=== PATIENT | female | born 1990 | race Caucasian/White ===

== ENCOUNTER 2020-07-28 09:10 | Emergency (ER) | payer OTHER, SELFPAY ==
--- NOTE | ~2020-07-28 | CT_ITS ---
EXAMINATION: CT abdomen pelvis w con EXAM DATE: 07/28/2020 11:04 INDICATION: Middle abd pain x 2 days, N/V/D . TECHNIQUE: Spiral CT of the abdomen and pelvis was performed following intravenous injection of 100 m L Omnipaque 350. Axial, coronal and sagittal images of the abdomen and pelvis were reviewed. The do se-length product (DLP) for this examination was 326.96 mGy-cm. The exposure was tailored according to patient size (auto mA exposure control), and iterative reconstruction (ASIR) was used as additiona l dose reduction technique. There is no prior study for comparison. FINDINGS: There is small region of heterogeneous right renal cortical enhancement at the midpole ant eriorly, could be pyelonephritis, please correlate with urinalysis. Can't exclude underlying renal ce ll cancer particularly if patient does not have pyelonephritis clinically. No hydronephrosis. The li zia, spleen, adrenal glands and pancreas are unremarkable. Gallbladder is unremarkable. No biliary obstruction. The uterus is unremarkable. Small amount of physiologic free pelvic fluid. The bladder is unremarkable. There is no retroperitoneal or pelvic lymphadenopathy. There are no findings to suggest appendicitis. The stomach and small bowel are unremarkable. There is moderate amount of colonic stool. No free intraperitoneal gas. The heart is normal in size. T here are no pericardial or pleural effusions. The lung bases are unremarkable. There are no osteobl astic or osteolytic lesions identified. IMPRESSION: Small region heterogeneous right renal cortical enhancement suspicious for acute pyelonep hritis. Correlate with urinalysis. If patient does not have pyelonephritis clinically, follow-up none mergent MRI should be obtained to exclude less likely possibility of cancer. Reviewed, dictated and finalized at location D. IMPRESSION: Small region heterogeneous right renal cortical enhancement suspici ous for acute pyelonephritis. Correlate with urinalysis. If patient does not barnett ve pyelonephritis clinically, follow-up nonemergent MRI should be obtained to e xclude less likely possibility of cancer.
[2020-07-28 09:20] VITALS: BP 122/85; PULSE 75; RESP 16; TEMP 36.9; O2SAT 99
[2020-07-28] MEDS: PANTOPRAZOLE SODIUM IV 40 MG VIAL IV PUSH (10:03)
[2020-07-28] MEDS: ONDANSETRON INJ 4 MG/2 ML VIAL IV PUSH (10:03)
[2020-07-28 10:05] LABS: Basophils Percent Auto 0.5 % (0.2-1.2); Eosinophils Absolute Auto 0.1 K/mm3 (0-0.3); Eosinophils Percent Auto 1.3 % (0-4.4); Hematocrit 39.1 % (37.0-47.0); Hemoglobin 13.2 g/dL (12.0-15.0); Immature Granulocyte Absolute 0.03 K/mm3 (0.00-0.031); Immature Granulocyte Percent A 0.5 % (0-0.5); Lymphocytes Absolute Auto 1.22 K/mm3 (0.9-3.2); Lymphocytes Percent Auto 19.3 % (18.3-44.2); Mean Corpuscular HGB Conc 33.8 g/dl (32-36); Mean Corpuscular Hemoglobin 31.4 pg (26-34); Mean Corpuscular Volume 92.9 fl (80-100); Monocytes Absolute Auto 0.6 K/mm3 (0.1-0.6); Neutrophils Absolute Auto 4.3 K/mm3 (1.3-6.7); Neutrophils Percent Auto 68.4 % (45.5-73.1); Platelet Count Result 233 k/mm3 (150-375); Red Blood Count 4.21 M/mm3 (4.2-5.4); Red Cell Distribution Width 12.2 % (11.5-14.5); White Blood Count 6.3 K/mm3 (4.5-10.0)
[2020-07-28] MEDS: SODIUM CHLORIDE 0.9% IV 1,000 ML 999 ML IV CONT (10:05)
[2020-07-28 10:11] LABS: Add Urine Microscopic? YES; Amorphous Sediment Urine Few; Appearance Urine Cloudy (Clear); Bacteria Urine Trace /hpf; Bilirubin Urine Negative (Negative); Blood Urine Negative (Negative); Color Urine Yellow (Yellow); Glucose Urine UA Negative (Negative); Ketones Urine Negative (Negative); Leukocyte Esterase Ur Negative LEU/UL (Negative); Mucus Urine Rare /lpf; Nitrate Urine Negative (Negative); Protein Urine 1+ mg/dL (Negative); RBC Urine 0-2 /hpf (0-2); Specific Grav Ur 1.016 (1.001-1.035); Squamous Epithelial Cell Urine Moderate /hpf (Few); Urobilinogen Urine Negative mg/dL (<2.0); WBC Urine 0-3 /hpf
--- NOTE | 2020-07-28 10:17 | ED.ABDPAIN ---
HPI - Abdominal Pain General Chief Complaint: Abdominal Pain Stated Complaint: abd pain Time Seen by Provider: 07/28/20 09:13 Source: patient, family and RN notes reviewed Mode of arrival: ambulatory Limitations: no limitations History of Present Illness HPI narrative: Patient is a 30-year-old female who presents to emergency department for evaluation of abdominal pain that began over the weekend had diffuse loose stools on Monday and then Monday began to have emesis that lasted throughout the day and has since had a sharp pain in the periumbilical region radiating to the right lower quadrant which has persisted patient. Patient denies similar occurrence in the past has tried [id number] medications with minimal improvement pain worsens with activity and movement. Patient has not eaten this morning Related Data Home Medications Medication Instructions Recorded Confirmed bupropion HCl [Wellbutrin XL] 300 mg PO QAM 07/28/20 fluoxetine 20 mg PO DAILY 07/28/20 Allergies Allergy/AdvReac Type Severity Reaction Status Date / Time No Known Allergies Allergy Verified 07/28/20 10:02 Review of Systems Review of Systems: All systems reviewed & are unremarkable except as noted in HPI and below PMFSH Past Medical History Medical History (Updated 07/28/20 @ 11:40 by Hayden Muñoz PA-C) Anxiety Social History Social History (Updated 07/28/20 @ 10:19 by Hayden Muñoz PA-C) Smoking status: Never smoker Exam Narrative: Exam Narrative: GENERAL: Well-appearing, well-nourished, and in no acute distress. HEAD: Normocephalic, atraumatic. EYES: PERRLA and EOMI. ENT: Nares clear, no rhinorrhea or epistaxis. Mucous membranes moist. NECK: Supple. No adenopathy or masses. CHEST: Clear to auscultation. No respiratory distress. No wheezes rales or rhonchi HEART: Regular rate and rhythm. No murmur heard. Normal peripheral pulses. ABDOMEN: Soft, periumbilical and focal right lower quadrant tenderness to palpation with voluntary guarding, nondistended EXTREMITIES: Normal range of motion. No edema. SKIN: Warm, dry, no rash. NEURO: No focal deficits. Alert and oriented x3. Cranial nerves II through XII grossly intact PSYCH: Normal mood and affect. Course Course Emergency Course: Patient in the room no distress aware of case findings treatment plan and diagnosis agreeing to follow-up as instructed or to return if symptoms worsen or concerns. Patient was made aware of her imaging findings and will follow with primary care for further evaluation. Patient is afebrile nontoxic-appearing. Patient will follow with primary care as noted has been provided with reasons to return and had improvement with medications Vital Signs Vital signs: Vital Signs Temperature 98.4 F 07/28/20 09:20 Pulse Rate 75 07/28/20 09:20 Respiratory Rate 16 07/28/20 09:20 Blood Pressure 122/85 07/28/20 09:20 Pulse Oximetry 99 07/28/20 09:20 Temperature 98.4 F 07/28/20 09:20 Pulse Rate 75 07/28/20 09:20 Respiratory Rate 16 07/28/20 09:20 Blood Pressure 122/85 07/28/20 09:20 Pulse Oximetry 99 07/28/20 09:20 MDM - Abdominal Pain MDM Narrative Medical decision making narrative: Patient was evaluated for vomiting and right lower quadrant pain. Patient had improvement with medications. ABCs and vital signs intact and stable. Patient will be discharged home with outpatient follow-up Differential Diagnosis Differential diagnosis: Likely abdominal pain, acute appendicitis, calculus of kidney, constipation, diverticulitis, endometriosis, gastroenteritis, pancreatitis and small bowel obstruction Lab Data Result diagrams: 07/28/20 09:45 07/28/20 09:45 Labs: Lab Results 07/28/20 07/28/20 07/28/20 Range/Units 09:45 09:45 09:45 WBC 6.3 (4.5-10.0) K/mm3 RBC 4.21 (4.2-5.4) M/mm3 Hgb 13.2 (12.0-15.0) g/dL Hct 39.1 (37.0-47.0) % MCV 92.9 (80-100) fl MCH 3
[2020-07-28 10:49] LABS: Alanine Aminotransferase 20 U/L (4-35); Albumin Level 4.2 g/dL (3.5-5.1); Alkaline Phosphatase 47 U/L (38-126); Anion Gap 8 mmol/L (8-16); Aspartate Amino Transferase 30 U/L (14-36); Bilirubin,Total 0.3 mg/dL (0.2-1.3); Blood Urea Nitrogen 12 mg/dL (7-17); Calcium 9.6 mg/dL (8.4-10.2); Carbon Dioxide 29 mmol/L (22-30); Chloride 101 mmol/L (98-107); Estimated CRCL calculation 87 ml/min; Estimated Glomerular Filt Rate > 60; Glucose 107 mg/dL (65-105); Lipase 92 U/L (23-300); Potassium 4.1 mmol/L (3.4-5.0); Sodium 138 mmol/L (137-145)
[2020-07-28] MEDS: HYOSCYAMINE SULFATE 0.5 MG/ML AMPUL 0.25 MG IM (12:16)
== END 2020-07-28 12:22 | disposition home or self-care (01) ==
PROVIDERS: Emergency Medicine Emergency Medical Services; Emergency Provider Emergency Medicine; PCP Nurse Practitioner Family
DX: R10.84 Generalized abdominal pain (principal); F41.9 Anxiety disorder, unspecified
CPT/HCPCS: 36415; 74177; 80053; 81001; 81025; 83690; 85025; 96361; 96372; 96374; 96375; 99284; C9113; J0131; J1980; J2405; J7030; Q9967

== ENCOUNTER 2021-04-02 17:30 | Outpatient (CLI) | payer OTHER, SELFPAY ==
[2021-04-05 20:04] LABS: Tissue Transglutaminase IgA Ab <1.0 U/mL (<15.0)
[2021-04-06 10:43] LABS: Tissue Transglutaminase IgG Ab <1.0 U/mL (<15.0)
== END 2021-04-02 17:31 | disposition home or self-care (01) ==
LOC: ANHLAB 17:33
PROVIDERS: PCP Nurse Practitioner Family; Visit Provider Nurse Practitioner Family
DX: R14.0 Abdominal distension (gaseous) (principal)
CPT/HCPCS: 36415; 83516

== ENCOUNTER 2021-04-02 17:49 | Outpatient (CLI) | payer OTHER, SELFPAY ==
--- NOTE | ~2021-04-02 | XR_ITS ---
EXAMINATION: XR wrist RT 2V EXAM DATE: 04/02/2021 18:42 INDICATION: Joint Pain, Right Wrist Is Worse Than Left. TECHNIQUE: Frontal and lateral projections of the right wrist. There are no prior studies for compar jose. FINDINGS: There are no bony erosions identified. There are no acute fractures or dislocations identi fied. There is no subcutaneous gas. The soft tissue is unremarkable. There are no radiopaque fore ign bodies. IMPRESSION: 1. Unremarkable XR wrist RT 2V exam. Reviewed, dictated and finalized at location G. ORATE PARALEGAL
--- NOTE | ~2021-04-02 | XR_ITS ---
EXAMINATION: XR ankle LT 2V EXAM DATE: 04/02/2021 18:43 INDICATION: Multiple Joint Pain/inflammation X Few Years TECHNIQUE: Frontal and lateral projections of the left ankle There is no prior study for compariso n. FINDINGS: The ankle mortise appears intact. No talar osteochondral defect. There are no acute left a nkle fractures or dislocations identified. There is no subcutaneous gas. The soft tissue is unremar kable. There are no radiopaque foreign bodies. IMPRESSION: 1. Unremarkable XR ankle LT 2V exam. Reviewed, dictated and finalized at location G. INOMETER TESTER
--- NOTE | ~2021-04-02 | XR_ITS ---
EXAMINATION: XR sacroiliac joints min 3V EXAM DATE: 04/02/2021 18:45 INDICATION: Multiple Joint Pain/inflammation X Few Years TECHNIQUE: Sacroiliac joint frontal, bilateral oblique projections. There is no prior study for com naye. FINDINGS: Sacroiliac joints are symmetric without erosive change, ankylosis or sclerosis. Sacrum, sa croiliac joints, sacral arcuate lines are intact. The soft tissue is unremarkable. IMPRESSION: Unremarkable XR sacroiliac joints exam. Reviewed, dictated and finalized at location G. UTING ARCHITECT
--- NOTE | ~2021-04-02 | XR_ITS ---
EXAMINATION: XR foot RT 2V EXAM DATE: 04/02/2021 18:46 INDICATION: Multiple Joint Pain/inflammation X Few Years . TECHNIQUE: Frontal and lateral projections of the right foot. Correlation is made to contralateral f oot same date. FINDINGS: There are no prior studies for comparison. There are no acute fractures or dislocations i dentified. There is no subcutaneous gas. The soft tissue is unremarkable. There are no radiopaque foreign bodies. There are no bony erosions identified. IMPRESSION: 1. Unremarkable XR foot RT 2V exam. Reviewed, dictated and finalized at location G. CTOR OF DIETARY
--- NOTE | ~2021-04-02 | XR_ITS ---
EXAMINATION: XR wrist LT 2V EXAM DATE: 04/02/2021 18:42 INDICATION: Multiple Joint Pain/inflammation. TECHNIQUE: Frontal and lateral projections of the left wrist. Correlation is made to contralateral w rist same date. FINDINGS: There are no bony erosions identified. There are no acute fractures or dislocations identi fied. There is no subcutaneous gas. The soft tissue is unremarkable. There are no radiopaque fore ign bodies. IMPRESSION: Unremarkable XR wrist LT 2V exam. Reviewed, dictated and finalized at location G. TAL MACHINING COORDINATOR
--- NOTE | ~2021-04-02 | XR_ITS ---
EXAMINATION: XR_CERV2-3V_CR EXAM DATE: 04/02/2021 18:46 INDICATION: Multiple Joint Pain/inflammation X Few Years TECHNIQUE: Cervical spine frontal, lateral, and open-mouth odontoid projections. There are no prior studies for comparison. FINDINGS: There is mild reversal of the normal cervical lordosis which may be positional or spasm. Th ere is no evidence of acute cervical fracture. The odontoid process is intact. Pre-dens space is no rmal. Prevertebral soft tissue is normal. There are no soft tissue abnormalities identified. Verte bral body and disc heights are well-maintained. The vertebral bodies are aligned. No appreciable a rthropathy. IMPRESSION: Reversal of cervical lordosis, could be positional or spasm. Otherwise normal cervical x- ray exam. Reviewed, dictated and finalized at location G. RAFT INSPECTOR IMPRESSION: Reversal of cervical lordosis, could be positional or spasm. Otherw ise normal cervical x-ray exam.
--- NOTE | ~2021-04-02 | XR_ITS ---
EXAMINATION: XR ankle RT 2V EXAM DATE: 04/02/2021 18:43 INDICATION: Multiple Joint Pain/inflammation X Few Years . TECHNIQUE: Frontal and lateral projections of the right ankle. [facility] same date. FINDINGS: No right ankle osteochondral defect. There are no acute fractures or dislocations identifi ed. There is no subcutaneous gas. The soft tissue is unremarkable. There are no radiopaque foreig n bodies. The ankle mortise appears intact. IMPRESSION: 1. Unremarkable XR ankle RT 2V exam. Reviewed, dictated and finalized at location G. RTAINMENT & MEDIA CORRESPONDENT
--- NOTE | ~2021-04-02 | XR_ITS ---
EXAMINATION: XR foot LT 2V EXAM DATE: 04/02/2021 18:46 INDICATION: Multiple Joint Pain/inflammation X Few Years TECHNIQUE: Frontal and lateral projections of the left foot. Correlation is made to left ankle, cont ralateral foot same date. FINDINGS: There are no acute left foot fractures or dislocations identified. There is no subcutaneou s gas. The soft tissue is unremarkable. There are no radiopaque foreign bodies. The ankle mortise appears intact. There are no bony erosions identified. IMPRESSION: 1. Unremarkable XR foot LT 2V exam. Reviewed, dictated and finalized at location G. OR MERCHANDISER
--- NOTE | ~2021-04-02 | XR_ITS ---
EXAMINATION: XR hand BI arthritis min 3V EXAM DATE: 04/02/2021 18:46 INDICATION: Multiple Joint Pain/inflammation X Few Years TECHNIQUE: Right hand frontal, lateral projections obtained and reviewed. Left hand frontal, lateral projections obtained and reviewed. Catchers projection of both hands. There is no prior study for comparison. FINDINGS: Right hand: There are no bony erosions identified. The joint spaces are maintained and symmetric to t he contralateral side. No bony productive changes. No radiopaque foreign bodies identified. Left hand: There are no bony erosions identified. Unremarkable uniform joint spaces. There is no subc utaneous gas. The soft tissue is unremarkable. There are no radiopaque foreign bodies. IMPRESSION: Unremarkable bilateral hand exam. Reviewed, dictated and finalized at location G. T ROCK APPLIER
== END 2021-04-02 17:50 | disposition home or self-care (01) ==
PROVIDERS: PCP Nurse Practitioner Family
DX: M25.50 Pain in unspecified joint (principal); R53.81 Other malaise; M79.10 Myalgia, unspecified site; M53.82 Other specified dorsopathies, cervical region
CPT/HCPCS: 36415; 72040; 72202; 73100; 73130; 73600; 73620; 83516

== ENCOUNTER 2021-06-01 07:49 | Outpatient (CLI) | payer OTHER, SELFPAY ==
[2021-06-01 10:37] LABS: Kit Draw Collected
== END 2021-06-01 07:50 | disposition home or self-care (01) ==
PROVIDERS: PCP Nurse Practitioner Family
DX: M04.9 Autoinflammatory syndrome, unspecified (principal); A04.9 Bacterial intestinal infection, unspecified; R53.83 Other fatigue; K58.9 Irritable bowel syndrome, unspecified
CPT/HCPCS: 36415

== ENCOUNTER 2022-08-20 10:44 | Outpatient (RCR) | payer OTHER, SELFPAY ==
[2022-08-20 11:52] VITALS: BP 105/69; PULSE 76
== END 2022-10-10 12:47 | disposition home or self-care (01) ==
LOC: ANHOBOP 10:44
PROVIDERS: PCP Nurse Practitioner Family; Visit Provider Obstetrics & Gynecology
DX: O36.8130 Decreased fetal movements, third trimester, not applicable or unspecified (principal); Z3A.37 37 weeks gestation of pregnancy
CPT/HCPCS: 59025

== ENCOUNTER 2022-08-29 06:29 | Inpatient (IN) | payer OTHER, SELFPAY ==
[2022-08-29] VITALS (118 sets, daily range): BP systolic 98–128; BP diastolic 43–99; PULSE 56–139; RESP 16–20; TEMP 36.2–37.8; O2SAT 85–100; BMI 30.2
[2022-08-29 07:13] LABS: Basophils Percent Auto 0.4 % (0.2-1.2); Eosinophils Absolute Auto 0.1 K/mm3 (0-0.3); Eosinophils Percent Auto 0.8 % (0-4.4); Hematocrit 34.7 % (37.0-47.0); Hemoglobin 11.6 g/dL (12.0-15.0); Immature Granulocyte Absolute 0.11 K/mm3 (0.00-0.031); Immature Granulocyte Percent A 1.2 % (0-0.5); Lymphocytes Absolute Auto 2.15 K/mm3 (0.9-3.2); Mean Corpuscular HGB Conc 33.4 g/dl (32-36); Mean Corpuscular Hemoglobin 30.9 pg (26-34); Mean Corpuscular Volume 92.5 fl (80-100); Mean Platelet Volume 9.8 fl (7.4-10.4); Monocytes Absolute Auto 0.5 K/mm3 (0.1-0.6); Monocytes Percent Auto 5.7 % (2.6-8.5); Neutrophils Absolute Auto 6.4 K/mm3 (1.3-6.7); Neutrophils Percent Auto 68.9 % (45.5-73.1); Platelet Count Result 177 k/mm3 (150-375); Red Blood Count 3.75 M/mm3 (4.2-5.4); Red Cell Distribution Width 12.8 % (11.5-14.5); White Blood Count 9.3 K/mm3 (4.5-10.0)
[2022-08-29] MEDS: OXYTOCIN 30 UNITS/NS 500 ML 30 UNITS/500 ML BAG 6 UNITS IV CONT (07:18)
--- NOTE | 2022-08-29 07:35 | LDADM ---
This patient, Karla Bills, was admitted to Labor/Delivery/Recovery 105 on 08/29/22 at 06:29. Plans for labor, pain management and were discussed with patient. Patient/family oriented to hospital policies and general routines including ID bracelet, bed and alarms, visiting hours, pain management, procedures, bathroom and other care routines, personal items, smoking policy, room service/diet and guest tray routines, infant security routines, and visiting hours. Patient/Family are encouraged to report perceived risks to care and to ask questions if they do not understand what they are told or what they should do. See OBIX for further documentation.
--- NOTE | 2022-08-29 08:41 | P.HP_ITS ---
Obstetrics - Admit Note Admission Note: record reviewed. Additions to the history and/or subsequent changes in the physical findings follow. 32 y/o at 39 weeks gestation here for scheduled induction of labor. GBS neg. Feeling some contractions. AVSS NST reactive TOCO: contractions every 2-4 min ABD soft, nontender, gravid, vertex EXT nontender Cervix 3/80/-2. AROM with meconium stained fluid. A: IUP at term with favorable cervix. P: She desires induction of labor. Reviewed risks / benefits. Oxytocin. Antic ipate . Peds aware of meconium.
[2022-08-29] MEDS: LACTATED RINGERS 1,000 ML 125 ML IV CONT ×3 (09:42→12:32)
--- NOTE | 2022-08-29 09:44 | WPDANESEPP ---
Anes - Eval Pre Procedure Procedure: Labor epidural Date/Time: 08/29/22 09:44 Surgeon: Jaren Preop Diagnosis: Pain during labor Pre Op Diagnosis: Induction of Labor Patient Data Age: 32 Gender: F Height: 1.63 m Weight: 80 kg Last Vital Signs Temp 36.8 C 08/29/22 08:41 Pulse 64 08/29/22 09:43 BP 111/66 08/29/22 09:43 Pulse Ox 99 08/29/22 09:42 O2 Del Method Room Air 08/29/22 07:34 Allergies Allergy/AdvReac Type Severity Reaction Status Date / Time nickel Allergy Rash Verified 08/17/22 15:23 No Known Drug Allergies AdvReac Unknown Other Verified 08/17/22 15:23 Home Medications Medication Instructions Recorded Confirmed Type fluoxetine 20 mg capsule 20 mg PO DAILY 07/28/20 08/17/22 History bupropion HCl 150 mg 24 hr tablet, 150 mg PO DAILY 08/06/22 08/17/22 History extended release dicyclomine 20 mg tablet 20 mg PO PRN PRN Pain 08/06/22 08/17/22 History vits no.126-ferrous fum 1 tablet PO DAILY 08/17/22 08/29/22 History 28 mg iron-folic acid 800 mcg tablet (Classic ) Laboratory Tests 08/29/22 07:07 WBC 9.3 K/mm3 (4.5-10.0) RBC 3.75 L M/mm3 (4.2-5.4) Hgb 11.6 L g/dL (12.0-15.0) Hct 34.7 L % (37.0-47.0) MCV 92.5 fl (80-100) MCH 30.9 pg (26-34) MCHC 33.4 g/dl (32-36) RDW 12.8 % (11.5-14.5) Plt Count 177 k/mm3 (150-375) MPV 9.8 fl (7.4-10.4) Immature Gran % (Auto) 1.2 H % (0-0.5) Neut % (Auto) 68.9 % (45.5-73.1) Lymph % (Auto) 23.0 % (18.3-44.2) [place] % (Auto) 5.7 % (2.6-8.5) Eos % (Auto) 0.8 % (0-4.4) Baso % (Auto) 0.4 % (0.2-1.2) Lymph # (Auto) 2.15 K/mm3 (0.9-3.2) [place] # (Auto) 0.5 K/mm3 (0.1-0.6) Eos # (Auto) 0.1 K/mm3 (0-0.3) Baso # (Auto) 0.0 K/mm3 (0.0-0.1) Abs Immat Gran (auto) 0.11 H K/mm3 (0.00-0.031) Absolute Neuts (auto) 6.4 K/mm3 (1.3-6.7) Absolute Nucleated RBC 0.0 K/mm3 (0.0-0.012) Nucleated RBC % 0.0 % (0.0-0.2) RPR Pending Blood Type O Positive Antibody Screen Negative Patient hx anesthesia problems: none Family hx anesthesia problems: none Results Review: All pre-operative results and documents have been reviewed as part of the pre-operative evaluation. [facility] Past Medical History Medical History Anxiety Constipation Family History Family History Grandparent Cerebrovascular accident History of blood clots Congestive heart failure Diabetes mellitus Hypertension Sibling Asthma Other Unknown family medical history Social History Social History Smoking status: Never smoker Alcohol intake: current Alcohol use details: social Substance use: never Substance use type: marijuana Lack of Transportation: No Lack of Food: Never True Current Housing: I Have Housing Concerned About Future Housing: No Difficulty Paying Gas/Electric Bills: No Difficulty Paying for Meds: No Currently Unemployed: No Education: Associate Degree Difficulty w/ Childcare or Family Care: No Spiritual care concerns: No Exam Day of Procedure 08/29/22 09:44 Patient weight: overweight Heart: regular rate and rhythm Lungs: clear to auscultation Airway: Mallampati scale class II Neurological: alert and oriented
[2022-08-29] MEDS: ONDANSETRON INJ 4 MG/2 ML VIAL IV PUSH (12:32)
--- NOTE | 2022-08-29 12:44 | PM.OBPNLAB ---
Pain Control Date/time seen: 08/29/22 12:44 Comments: Comfortable with epidural. Pelvic Exam Dilation (cm): 9 Effacement (%): 100 station: +1 Contractions Contraction frequency: 3 Status Comments: Reactive Assessment and Plan Comments: Continue labor.
--- NOTE | 2022-08-29 14:55 | P.PCNOB_ITS ---
OB - Delivery Note Procedure Delivery date: 08/29/22 Procedure: Induction of labor with Induction method: Per Pitocin Protocol Delivery augmentation: Rupture of Membranes Delivery monitor: External FHT and External Uterine Route of delivery: Laceration Description: Periurethral and Labial Delivery repair: vicryl (3-0) Specimen: Yes (cord blood) Quantitative Blood Loss (ml): 450 Anesthesia type: Epidural Disposition: PACU Complications: None Narrative: 32 y/o at 39 weeks gestation who presented to the hospital for induction of labor. Oxytocin was administered intravenously. Amniotomy was performed with return of clear fluid. She received an epidural for pain control. Her labor progressed and her cervix dilated completely. She pushed with good effort and delivered the 's head to the perineum, followed by the body. The nose and mouth were bulb suctioned. After a delay, the cord was clamped and cut. The infant was handed off the field. Cord blood was collected. The placenta delivered spontaneously and was grossly normal in appearance. The usual 3 vessel cord was noted. Bilateral labial lacerations extending into periurethral lacerations were noted. These were reapproximated with 3-0 vicryl in interrupted figure of eight sutures. Excellent hemostasis resulted as did excellent reapproximation of the normal anatomy. Needle and instrument counts were correct. The patient was taken to recovery room in stable condition. The infant went to the nursery in stable condition. I was present and scrubbed for the entire delivery. [place] Baby Date of : 08/29/22 Time of : 14:21 Weeks of gestation at delivery: 39 Infant gender: Female Weight (pounds): 7 Weight (ounces): 8 presentation: vertex position: Left Occiput Anterior Placenta delivery description: Spontaneous and Normal Configuration Cord Vessel Description: 3 Vessels and Delayed Cord Clamping score one minute: 8 score five minutes: 9
--- NOTE | 2022-08-29 14:59 | PM.OBDSVD ---
DS: Admitting Diagnosis Discharge Date 08/31/22 Admitting Diagnosis IUP at 39 weeks DS: Discharge Diagnosis Discharge Diagnosis (1) (normal spontaneous vaginal delivery): Code(s): O80 - Encounter for full-term uncomplicated delivery Status: Acute OB - DS: Summary OB Procedures : None OB Procedures Intrapartum: Spontaneous Vag Delivery OB Procedures: : None Time Spent with Patient Time attestation: Total time spent providing and/or coordinating discharge services: DS: Data Data Completed and Pending Labs on day of discharge: Labs from last 24 hours 08/29/22 07:07 WBC 9.3 RBC 3.75 L Hgb 11.6 L Hct 34.7 L MCV 92.5 MCH 30.9 MCHC 33.4 RDW 12.8 Plt Count 177 MPV 9.8 Immature Gran % (Auto) 1.2 H Neut % (Auto) 68.9 Lymph % (Auto) 23.0 [place] % (Auto) 5.7 Eos % (Auto) 0.8 Baso % (Auto) 0.4 Lymph # (Auto) 2.15 [place] # (Auto) 0.5 Eos # (Auto) 0.1 Baso # (Auto) 0.0 Abs Immat Gran (auto) 0.11 H Absolute Neuts (auto) 6.4 Absolute Nucleated RBC 0.0 Nucleated RBC % 0.0 RPR Pending Blood Type O Positive Antibody Screen Negative Discharge Plan Discharge Attending physician on discharge: Hugh Eastman Discharging Clinician: Hugh Eastman Patient Disposition: Home, Self-Care Activity: pelvic rest Diet: regular Discharge Instructions: Education: Mom and Baby Guide Given to: Mother Follow-Up: Call your delivering provider's office for an appointment to be seen in: 4 Weeks Mom and baby should come to the [facility] for the follow-up appointment. Appointment Date/Time: September 02, 2022 at 10:00 am What to expect at your follow-up visit: Blood Pressure Check Call [phone] if you are unable to keep your appointment time. BREAST CARE: * Wear a snug supportive bra. * For engorgement discomfort: Breast Feeding: * Apply warm moist washcloths * Express milk as needed to relieve engorgement * Wear loose clothing * For sore nipples: * Identify correct latch-on * Apply warm moist washcloths before and after nursing * Air dry nipples after nursing * May apply Lansinoh cream to nipples PERINEAL CARE: * Until bleeding stops, use your leida bottle after urinating * Change your pad frequently throughout the day * You may take sitz baths several times a day (fill your bathtub with warm water and soak for 20 minutes.) Do NOT bathe in the water * No tub baths until seen by your physician - You may shower ACTIVITY: * Rest as much as possible. * Do not exercise or lift anything heavier than your baby (such as laundry or other children.) * Avoid stairs or driving as much as possible. * Do not put anything into the vagina. No douching, tampons, or sexual activity until seen by physician. NOTIFY PHYSICIAN IF YOU HAVE ANY QUESTIONS OR IF ANY OF THE FOLLOWING SYMPTOMS OCCUR: * If your perineum becomes red, swollen, or more painful than what you have experienced in the hospital. * If your vaginal bleeding becomes foul smelling. * If your vaginal bleeding becomes more heavy than a period or if your bleeding changes from pink to bright red. However, you may pass an occasional walnut-sized clot once or twice for the first week . * If you experience a sharp, shooting pain in you calves. * If you discover a hard, reddened area on your breast or if you experience flu-like symptoms. * If you have a fever of 100.4 or greater DIET: * Eat regular, well-balanced meals. * Drink plenty of fluids daily. If , drink to thirst.Call or return if temperature above 100.4? F, increased abdominal pain, increased vaginal bleeding or any new problems. Stand Alone Forms: General Discharge Information Follow-up/Referrals: Hugh Eastman MD [Physician] - 6 Weeks Discharge Medications: New ibuprofen 600 mg tablet 600 mg
[2022-08-29] MEDS: OXYTOCIN 30 UNITS/NS 500 ML 30 UNITS/500 ML BAG 125 UNITS IV CONT (15:00)
--- NOTE | 2022-08-29 15:55 | PC.NURSE ---
1300 - Introductions were made and mother shared how she would like to feed her baby with along with her past experience. Encouraged mother to place [id number] until the first feeding if infant is stable and to wait on the weight to help stabilize, reduce stress, and improve latching by allowing infant time to explore parent's chest using instincts. Education was shared on how to protect her milk supply with latching and/or using hand expression to remove milk if infant doesn't latch in the first hour, then finger feed colostrum to the to preserve breast focus.Resources provided with educational trifold for bonding and feeding . Parents voiced understanding of information and to call if there is a request for assistance.
[2022-08-29] MEDS: WITCH HAZEL 40 PADS 1 PAD TOPICAL (16:19)
[2022-08-29] MEDS: ACETAMINOPHEN 325 MG TABLET 650 MG PO (16:19)
[2022-08-29 17:15] LABS: Rapid Plasma Reagin Non-Reactive (NonReactive)
[2022-08-29] MEDS: DOCUSATE SODIUM 100 MG CAPSULE PO (19:18)
[2022-08-29] MEDS: IBUPROFEN 600 MG TABLET PO (19:19)
--- NOTE | 2022-08-29 21:50 | PC.NURSE ---
Patient transferred to post room #292 per wheelchair from labor and delivery on 08/29/2022 @ [id number]. Support person present. Oriented to unit, room, information board, rooming in, admission packet and security measures. Patient verbalizes understanding.
[2022-08-30] MEDS: IBUPROFEN 600 MG TABLET PO ×4 (01:26→19:10)
[2022-08-30 05:18] LABS: Hematocrit 25.1 % (37.0-47.0); Hemoglobin 8.5 g/dL (12.0-15.0)
[2022-08-30] MEDS: ACETAMINOPHEN 325 MG TABLET 650 MG PO ×3 (07:27→19:10)
[2022-08-30 07:30] VITALS: BP 116/76; PULSE 84; RESP 16; TEMP 37.2; O2SAT 99
[2022-08-30] MEDS: MULTIVIT/MIN/PREN/FOL AC/IRON TABLET 1 TAB PO (09:51)
[2022-08-30] MEDS: FLUoxetine HCL 20 MG CAPSULE PO (09:51)
[2022-08-30] MEDS: LANOLIN (LANSINOH) 7.5 GM CREAM 1 APPLIC TOPICAL (09:51)
[2022-08-30] MEDS: POLYSACCHARIDE IRON COMPLEX 150 MG CAPSULE PO ×2 (09:51→17:14)
[2022-08-30] MEDS: buPROPion HCL XL (24 HR) 150 MG TABCR PO (09:51)
[2022-08-30] MEDS: DOCUSATE SODIUM 100 MG CAPSULE PO ×2 (09:51→17:14)
--- NOTE | 2022-08-30 10:55 | PM.OBPNVD ---
OB - PN: Subj Subjective Date/time seen: 08/30/22 10:55 Narrative: Pain OK. OB - PN: Obj Data Labs 08/30/22 04:49 Labs: Laboratory Results - last 24 hr 08/29/22 08/30/22 07:07 04:49 Hgb 8.5 L D Hct 25.1 L RPR Non-reactive OB - PN A/P Plan Comments: A: PPD#1, doing well. P: Routine care. Plan home tomorrow. Exam Psych: Other: AVSS ABD soft, nontender, fundus firm EXT nontender
--- NOTE | 2022-08-30 12:06 | PC.NURSE ---
0810 - Purposefully rounded as reported that patient request consult. Patient is sleeping. [id number] Purposefully rounded to assess needs. Mother had just breastfed her on the right breast without any pain. Mother has an inverted nipple (grade 1) that comes out with stimulation and stays out for a little while, then inverts again. Mother works well with her with encouragement and education. Encouraged understanding of the benefits of skin to skin (demonstrating unwrapping and placing upright on her chest), stimulating with massage touch, changing positions to encourage wakefulness, how to watch for early feeding cues, responsive feeding, feeding on demand (aiming for 8-12 times in 24 hours, about every 2-3 hours), milk production, building/maintaining a milk supply, duration of feeding, signs of adequate intake/output and how to record on the feeding sheet. Reviewed positioning and ear, shoulder, hip alignment, supporting the breast to facilitate a deep latch, asymmetrical latch (off-center), leading with the chin with a big, open, wide gape and body close to mother. Infant latched optimally to the left breast in football position. Mother has been pumping the left breast to pull out the nipple to stimulate for milk production. Reviewed paced bottle feeding with the pumped colostrum. Encouraged effective on demand . Education given to mother of how to visualize suck/swallow ratios and listen for drinking at the breast. Infant was able to maintain latch without discomfort to mother. Nipple care reviewed with optimal latch and good positioning. Reminding mother of comfort measures of healing with a warm and wet washcloth to rinse breast, then leave open to air-dry as needed. Reviewed good handwashing when , touching the breast/nipples, and care given to the inverted nipple to prevent infection. Resources used to facilitate learning were used with the mom and baby guide. Mother voiced understanding of skin to skin, stimulating with massage touch, responsive feedings, hand expressed colostrum, talking to infant to encourage if it has been 2 -2.5 hours since the start of the last , to call if does not latch, or if there is discomfort with . Resources provided for inpatient/outpatient with the mom/baby guide. Parents voiced understanding of information, demonstrated learning and will call if there is a request for assistance. Reported to the Primary RN.
--- NOTE | 2022-08-30 13:42 | WPDANLDPN2 ---
Anes-Prog Note L&D Date/Time: 08/30/22 13:42 Comfortable throughout: labor and delivery Neuraxial method: epidural Epidural/Spinal procedure site: clean & non-tender Neuro status: Neuro function grossly intact. Cardiovascular status: normal Respiratory status: normal Airway patency: baseline Mental status: baseline Post-Op hydration status: normal Vital Signs: Last Vital Signs Temp 99.0 F 08/30/22 07:30 Pulse 84 08/30/22 07:30 Resp 16 08/30/22 07:30 BP 116/76 08/30/22 07:30 Pulse Ox 99 08/30/22 07:30 O2 Del Method Room Air 08/29/22 07:34 Pain score (VAS): 0 I/O: Intake & Output 08/29/22 08/30/22 08/30/22 23:59 07:59 15:59 Intake Total 740 Output Total 213 Balance 527 Post-procedural complaints: none Patient feedback: Patient satisfied with anesthetic care.
--- NOTE | 2022-08-30 16:02 | PC.NURSE ---
Upon admission when asking about previous drug or alcohol abuse. Pt did state that she drank 3-4 glasses of wine throughout the . Noted with admission questions and Dr. Eastman aware.
[2022-08-30 19:10] VITALS: BP 105/69; PULSE 88; RESP 16; TEMP 36.9; O2SAT 97
[2022-08-31] MEDS: ACETAMINOPHEN 325 MG TABLET 650 MG PO ×3 (02:45→15:00)
[2022-08-31] MEDS: IBUPROFEN 600 MG TABLET PO ×3 (02:45→15:00)
[2022-08-31 08:30] VITALS: BP 111/60; PULSE 67; RESP 18; TEMP 36.9; O2SAT 100
--- NOTE | 2022-08-31 08:54 | PM.OBPNVD ---
OB - PN: Subj Subjective Date/time seen: 08/31/22 08:54 Narrative: Pain OK. Would like to go home. OB - PN: Obj Data Labs 08/30/22 04:49 OB - PN A/P Plan Comments: A: PPD#2, doing well. P: Home to f/u 6 weeks. Exam Psych: Other: AVSS ABD soft, nontender, fundus firm EXT nontender
[2022-08-31] MEDS: FLUoxetine HCL 20 MG CAPSULE PO (09:00)
[2022-08-31] MEDS: buPROPion HCL XL (24 HR) 150 MG TABCR PO (09:00)
--- NOTE | 2022-08-31 09:00 | PC.NURSE ---
PT introductions made and plan and plan of care discussed per post , pain management, breast feeding,daily care activities and pending discharge to home.PT and spouse both recipients of such instructions and no barriers to learning identified at this time. PT received such instructions via one to one discussion , mom baby care guide and demonstration. Patient verbalizes understanding.
[2022-08-31] MEDS: POLYSACCHARIDE IRON COMPLEX 150 MG CAPSULE PO (09:01)
[2022-08-31] MEDS: MULTIVIT/MIN/PREN/FOL AC/IRON TABLET 1 TAB PO (09:01)
[2022-08-31] MEDS: DOCUSATE SODIUM 100 MG CAPSULE PO (09:01)
--- NOTE | 2022-08-31 13:12 | PC.NURSE ---
[id number] Mother led the conversation with her experience and plan to feed her so far and her ability to independently latch optimally with an initial discomfort that subsides after a few seconds and denies nipple misshaping after . Mother voiced if latches with pain, she removes from the breast and re-latches effectively. Reminded mother to use good handwashing technique to prevent infection. Mother is feeding appropriately for growth of infant and understands stimulating to eat if needed. has had appropriate feedings in the last 24 hours meets the outcomes for weight, output and jaundice at this time. Mother states she is confident to continue effectively breastfeed her infant at home, when to call for assistance and denies any additional assistance or education at this time. Reinforced understanding of milk production, transition of milk, signs of adequate intake, transition of stool, prevention/relief of engorgement, responsive watching for feeding cues, the different methods of stimulating to breastfeed 2-3 hours after the start of the last feeding, community resources, medication information reviewed per [facility] and when to call a provider using the resource of the mom and baby guide. Mother voiced understanding of the education shared. Reported to the primary RN.
--- NOTE | 2022-08-31 14:45 | PC.NURSE ---
PT received discharge instructions per protocol and verbalized understanding of such care
--- NOTE | 2022-08-31 16:15 | PC.NURSE ---
PT discharged to home ambulatory accompanied by spouse and and taken to waiting car. Follow up appts confirmed
--- NOTE | 2022-08-31 16:15 | PC.NURSE ---
PT discharged to home ambulatory accompanied by spouse and and walked to waiting car. Follow up appts confirmed
[2022-09-02 10:23] VITALS: BP 117/78; PULSE 86; RESP 18; TEMP 37.1; O2SAT 99
== END 2022-08-31 16:15 | disposition home or self-care (01) | DRG 807 ==
LOC: ANHLDR 15:00 → ANHOB2 17:25
PROVIDERS: Admitting Provider Obstetrics & Gynecology; PCP Nurse Practitioner Family; Visit Provider Obstetrics & Gynecology
DX: O71.82 Other specified trauma to perineum and vulva (principal); Z37.0 Single live birth; Z3A.39 39 weeks gestation of pregnancy
CPT/HCPCS: 36415; 85014; 85018; 85025; 86592; 86850; 86900; 86901; A9270; J2405; J2590; J2795; J7120

== ENCOUNTER 2024-01-21 15:03 | Emergency (ER) | payer OTHER, SELFPAY ==
--- NOTE | ~2024-01-21 | XR_ITS ---
XR chest 2V DATE: 01/21/2024 16:19 INDICATION: Cough, fatigue TECHNIQUE: 2 views COMPARISON: None FINDINGS: Normal heart size. No hilar or mediastinal enlargement. No pulmonary infiltrate or consolid ation, pleural effusion or pulmonary vascular congestion or pneumothorax. Included skeletal structure s are unremarkable. IMPRESSION: Negative Reviewed, dictated and finalized at location A. ESTHETICIAN IMPRESSION: Negative
[2024-01-21 15:21] VITALS: BP 116/80; PULSE 82; RESP 16; TEMP 36.6; O2SAT 99
--- NOTE | 2024-01-21 16:04 | ED.URI ---
HPI - URI/Sore Throat General Chief Complaint: Upper Respiratory Infection Stated Complaint: Sore Throat/Cough Time Seen by Provider: 01/21/24 16:05 Source: patient Mode of arrival: ambulatory Limitations: no limitations History of Present Illness HPI Narrative: 33-year-old female presented for complaint of cough for 4 days. States she lost her voice yesterday. Denies shortness of breath but feels fatigue with exertion. Denies chest pain, wheezing, nausea, vomiting, diarrhea, fevers or chills. Taking blnd-aay-dwnaeck cough medicine. Related Data Home Medications Medication Instructions Recorded Confirmed fluoxetine 20 mg capsule 20 mg PO DAILY 07/28/20 08/17/22 bupropion HCl 150 mg 24 hr tablet, 150 mg PO DAILY 08/06/22 08/17/22 extended release dicyclomine 20 mg tablet 20 mg PO PRN PRN Pain 08/06/22 08/17/22 vits no.126-ferrous fum 1 tablet PO DAILY 08/17/22 08/29/22 28 mg iron-folic acid 800 mcg tablet (Classic ) Allergies Allergy/AdvReac Type Severity Reaction Status Date / Time nickel Allergy Rash Verified 01/21/24 16:45 No Known Drug Allergies AdvReac Unknown Other Verified 01/21/24 16:45 Review of Systems Review of Systems: CONSTITUTIONAL: Denies body aches, fever, chills, or sweats. EYES: Denies visual changes, redness, or discharge. ENT: Denies rhinorrhea, congestion, sore throat, or otalgia. CARDIOVASCULAR: Denies chest pain, palpitations, or edema. RESPIRATORY: Reports cough, denies sob, wheezing. GASTROINTESTINAL: Denies abdominal pain, nausea, vomiting, or diarrhea. NEUROLOGIC: Denies headache All systems reviewed & are unremarkable except as noted in HPI and below PMFSH Past Medical History Medical History Anxiety Constipation Family History Family History Grandparent Cerebrovascular accident History of blood clots Congestive heart failure Diabetes mellitus Hypertension Sibling Asthma Other Unknown family medical history Social History Social History Smoking status: Never smoker Alcohol intake: current Alcohol use details: social Substance use: never Substance use type: marijuana Lack of Transportation: No Lack of Food: Never True Current Housing: I Have Housing Concerned About Future Housing: No Difficulty Paying Gas/Electric Bills: No Difficulty Paying for Meds: No Currently Unemployed: No Education: Associate Degree Difficulty w/ Childcare or Family Care: No Spiritual care concerns: No Comments At time of signature, I have reviewed and agree with nursing past medical, surgical, social and family history unless otherwise noted. Please see nursing chart for further information. There is no relevant family history pertinent to the presenting complaint Exam Narrative: GENERAL: Well-appearing, in no acute distress. EYES: EOMI. No redness or drainage. Conjunctivae normal. ENT: Mucous membranes pink and moist. No rhinorrhea. TMs normal bilaterally. Throat normal; hoarse voice. Uvula midline. NECK: Normal AROM. Supple. CHEST: No respiratory distress. Lungs clear to all lopez. HEART: Regular rate and rhythm. No murmur appreciated. ABDOMEN: Soft, nontender, nondistended, normal active bowel sounds. SKIN: Warm, dry, no rash. Capillary refill normal. Normal skin turgor. NEURO: Alert and oriented x3. Gait steady. Course Course Emergency Course: Patient is aware of diagnosis, understands and agrees to treatment plan. Anticipatory guidance given. Patient agrees to follow-up as directed and is aware of reasons to seek care at the emergency department. Portions of this record may have been created with voice recognition software Level of Care: Express Care Visit Vital Signs Vital signs: Vital Signs Temperature 97.9 F 01/21/24 15:21 Pulse Rate 82 01/21/24 15:21 Respiratory Rate 16 01/21/24 15:21 Blood Pressure 116/80 01/21/24 15:21 Pulse Oximetry 99 01/21/24 15:21 Temperature 97.9 F 01/21/24 15:21 Pulse Rate 82 01/21/24 15:21 Respiratory Rate 16 01/21/24 15:21 Blood Pressure 116/80 01/21/24 15:21 Pulse Oximetry 99 01/21/24 15:21 MDM - URI/Sore Throat MDM Narrative Medical decision making narrative: Discussed physical exam findings and chest x-ray. Advised supportive measures and signs/symptoms to go to the ER. Pt is appropriate for outpt treatment and f/u. Differential Diagnosis Differential diagnosis: Likely upper respiratory infection, sinusitis, viral infection, bronchitis, influenza and pharyngitis Discharge Plan Discharge Clinical Impression: Bronchitis, Laryngitis Patient Disposition: Home, Self-Care Condition: Stable Instructions: Antibiotic Form, Acute Bronchitis (ED) Additional Instructions: Acute bronchitis can be contagious because it is usually caused by infection with a virus or bacteria. It is usually for a few days but you can be contagious for up to one week. Avoid crowds until you do not have a fever and symptoms are improved Take medication as directed Recommendations: Voice rest. over the counter Cough syrup may cause drowsiness; avoid driving or take it at night time. Tylenol 1000mg every 8 hours as needed for pain Flonase spray and Zyrtec (or Claritin/Yolanda) if you have nasal congestion Symptomatic treatment includes: rest, fluids, and increase humidity of the air at home. Follow up with your primary care provider as needed in 1 week Go to the ER for worsening symptoms or concerns Prescriptions: New methylprednisolone [Medrol (Jack)] 4 mg tablets,dose pack See Rx Instructions .ROUTE .COMPLEX Qty: 21 0RF Rx Instructions: orally per package directions benzonatate 200 mg capsule 200 mg PO TID PRN (Reason: cough) Qty: 20 0RF No Action Classic 28 mg iron- 800 mcg Tablet 1 tablet PO DAILY ferrous sulfate 325 mg (65 mg iron) tablet 325 mg PO DAILY Qty: 30 0RF dicyclomine 20 mg tablet 20 mg PO PRN PRN (Reason: Pain) bupropion HCl 150 mg tablet extended release 24 hr 150 mg PO DAILY fluoxetine 20 mg Capsule 20 mg PO DAILY Follow-up/Referrals: PHYSICIAN,RETURNS CLERK [Primary Care Provider] -
== END 2024-01-21 16:48 | disposition home or self-care (01) ==
PROVIDERS: Emergency Provider Nurse Practitioner Family
DX: J40 Bronchitis, not specified as acute or chronic (principal); J04.0 Acute laryngitis; F41.9 Anxiety disorder, unspecified
CPT/HCPCS: 71046; 99213; G0463

== ENCOUNTER 2024-06-12 10:28 | Outpatient (CLI) | payer BC, SELFPAY ==
--- OUTSIDE RECORDS SUMMARY | 2024-06-12 11:49 | XMS_ITS | Encounter Summary ---
Author Organization [facility] Address [address] [place] [id number] Care Team Providers Care Quality Technician Name Role Phone Liat Arredondo [facility] Primary Care Provider + Kelsey Lopez NP Primary Care Provider [phone] Encounter Details Date Type Department Care Team (Late st Contact Info) Description 05/24/2022 [employer] Message Enc [facility] Family & Internal Medicine [address] [address] [address]iat Arredondo [address] [address] Cold meds Social History Tobacco Use Types Packs/Day Years Used Date Smoking Tobacco: Never Smokeless Tobacco: Never Alcohol Use Standard Drinks/Week Comments Yes 0 (1 standard drink = 0.6 oz pur e alcohol) socially AUDIT-C Answer Date Recorded Frequency of Alcohol Consumption 2-4 times a mon02/21/2018 Average Number of Drinks 1 or 2 018 Frequency of Binge Drinking Never 01/28 PHQ-2 Answer Date Recorded PHQ-2 Score - If the patient scores above 3, please move on to questions 3-9 0 05/12/2020 Education Answer Date Recorded What is the highest level of school you have completed or the highest degree you have received? Associate degree: occupational, technical, or vocational program 02/21/2018 Comments Unknown Sex and Gender Information Value Date Recorded Sex Assigned at Female 03/22/2024 8:36 AM BUSINESS MANAGEMENT CONSULTANT Legal Sex Female 8:06 AM CDT Gender Identity Female 03/22/2024 8:36 AM BUSINESS MANAGEMENT CONSULTANT Sexual Orientation Straight 04/17/2024 10 :06 AM BUSINESS MANAGEMENT CONSULTANT Occupation Industry Job Start Date Job End Date [employer] Not on file Not on file Not on file documented as of this encounter Plan of Treatment Not on file documented as of this encounter Visit Diagnoses Not on filedocumented in this encounter Additional Health Concerns Infection Onset Date Last Indicated Resolved Time COVID-19 Rule Out 09/28/2023 09/28/2023 09/28/2023 3:21 PM CDT COVID-19 Rule Out 04/17/2024 04/17/2024 04/17/2024 12:48 PM BUSINESS MANAGEMENT CONSULTANT Assessment Noted Time PHQ-9 Depression Total Score: 5 04/04/19 20 9:23 AM BUSINESS MANAGEMENT CONSULTANT documented as of this encounter Care Teams Quality Technician Relationship Specialty Start Date End Date Liat Arredondo FNP-BC PCP - General Nurse Practitioner Family 04/04/1901/31/23 Kelsey Lopez, AUTO APPRENTICE MECHANIC [address] [place] [address] PCP - General NURSE PRACTITIONER 09/28/23 documented as of this encounter
--- OUTSIDE RECORDS SUMMARY | 2024-06-12 11:49 | XMS_ITS | Encounter Summary ---
Author Organization [facility] Address [address] [place] [address] Care Team Providers Care Business Operations Analyst Name Role Phone Liat Arredondo [facility] Primary Care Provider + Kelsey Lopez NP Primary Care Provider [phone] Encounter Details Date Type Department Care Team (Late st Contact Info) Description 02/02/2021 [employer] Message Enc [facility] Medical [facility] Family & Internal Medicine [address] [address] Liat Arredondo [address] [address] Other Social History Tobacco Use Types Packs/Day Years [...] Sex Assigned at Female 03/22/2024 8:36 AM TRUST AND ESTATES PARALEGAL Legal Sex Female 8:06 AM CDT Gender Identity Female 03/22/2024 8:36 AM TRUST AND ESTATES PARALEGAL Sexual Orientation Straight 04/17/2024 10 :06 AM TRUST AND ESTATES PARALEGAL 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 Unable to assess 02/04/2021 7:11 AM TRUST AND ESTATES PARALEGAL documented as of this encounter Progress Notes * Charlotte English RN - 02/04/2021 12:48 PM CST Spoke with patient and completed chart prep. T AND ESTATES PARALEGAL * Charlotte English RN - 02/02/2021 4:45 PM CST Please advise, do you need to see patient, if yes, okay for VV? T AND ESTATES PARALEGAL documented in this encounter Plan of Treatment Not on file documented as of this encounter Visit Diagnoses Not on filedocumented in this encounter Additional Health Concerns Infection Onset Date Last Indicated Resolved Time COVID-19 Rule Out 09/28/2023 09/28/2023 09/28/2023 3:21 PM CDT COVID-19 Rule Out 04/17/2024 04/17/2024 04/17/2024 12:48 PM TRUST AND ESTATES PARALEGAL Assessment Noted Time PHQ-9 Depression Total Score: 5 04/04/19 20 9:23 AM TRUST AND ESTATES PARALEGAL documented as of this encounter Care Teams Business Operations Analyst Relationship Specialty Start Date End Date Liat Arredondo FNP-BC PCP - General Nurse Practitioner Family 04/[birth year]01/31/23 Kelsey Loepz NP [address] [place] [address] PCP - General NURSE PRACTITIONER 09/28/23 documented as of this encounter
--- OUTSIDE RECORDS SUMMARY | 2024-06-12 11:49 | XMS_ITS | Encounter Summary ---
Author Organization [facility] Address [address] [place] [address] Care Team Providers Care Underground Heavy Equipment Operator Name Role Phone Liat Arredondo [facility] Primary Care Provider + Kelsey Lopez NP Primary Care Provider [phone] Encounter Details Date Type Department Care Team (Late st Contact Info) Description 05/04/2021 [employer] Message Enc [facility] Family & Internal Medicine [address] [address] Liat Arredondo [address] [phone] Lab results Social History Tobacco Use Types Packs/Day Years [...] Sex Assigned at Female 03/22/2024 8:36 AM MOULDER OPERATOR Legal Sex Female 8:06 AM CDT Gender Identity Female 03/22/2024 8:36 AM MOULDER OPERATOR Sexual Orientation Straight 04/17/2024 10 :06 AM MOULDER OPERATOR 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 DER OPERATOR documented in this encounter Plan of Treatment Not on file documented as of this encounter Visit Diagnoses Not on filedocumented in this encounter Additional Health Concerns Infection Onset Date Last Indicated Resolved Time COVID-19 Rule Out 09/28/2023 09/28/2023 09/28/2023 3:21 PM CDT COVID-19 Rule Out 04/17/2024 04/17/2024 04/17/2024 12:48 PM MOULDER OPERATOR Assessment Noted Time PHQ-9 Depression Total Score: 5 04/04/19 20 9:23 AM MOULDER OPERATOR documented as of this encounter Care Teams Underground Heavy Equipment Operator Relationship Specialty Start Date End Date Liat Arredondo FNP- PCP - General Nurse Practitioner Family 04/04/1901/31/23 Kelsey Lopez NP [address] [place] [address] PCP - General NURSE PRACTITIONER 09/28/23 documented as of this encounter
--- OUTSIDE RECORDS SUMMARY | 2024-06-12 11:49 | XMS_ITS | Clinical Summary ---
Author Organization [facility] Address [address] [place] [address] Care Team Providers Care Herbologist Name Role Phone JessicaKelsey DIAMOND DRILLER HELPER Primary Care Provider Allergies Active Allergy Reactions Criticality Noted Date Comments Lactose Intolerance (Gi) GI Upset 02/01/2023 Nickel Rash Low 11/15/2017 Medications 28-0.8 MG tablet Take 1 tablet by mouth daily. Active ondansetron 4 MG disintegrating tabletIndications: Nausea Take 1 tablet (4 mg total) by mouth every 8 (eight) hours as needed for Nausea. 20 tablet 04/09/19 22 Active fluticasone propionate (FLONASE) 50 MCG/ACT nasal sprayIndications:N sunday congestion 1 spray by Nasal route daily. 16 g 1 09/24/19 22 Active hydroCHLOROthiazid e (HYDRODIURIL) 50 MG tabletIndications: Dependent edema Take 1/2 tablet (25 mg) to 1 tablet (50 mg) daily as needed for swelling 90 tablet 3 09/24/19 22 Active dicyclomine (BENTYL) 20 MG tabletIndications: Abdominal cramping Take 1 tablet (20 mg total) by mouth every 6 (six) hours as needed (abdominal cramping). 40 tablet 06/11/19 23 Active hydrOXYzine (ATARAX) 10 MG tabletIndications: TERESSA (generalized anxiety disorder) TAKE 1 TABLET(10 MG) BY MOUTH THREE TIMES DAILY NEEDED FOR ANXIETY 60 tablet 1 02/28/19 25 Active ALPRAZolam (XANAX) 0.25 MG tabletIndications: TERESSA (generalized anxiety disorder) Take 1 tablet (0.25 mg total) by mouth 2 (two) times daily as needed for Anxiety. 60 tablet 03/22/19 25 Active SUMAtriptan (IMITREX) 25 MG tabletIndications: TERESSA (generalized anxiety disorder) Take 1 tab by mouth at migraine onset. May repeat dose x 1 if needed. Max of 8 tablets (200 mg) in a 24 hour period. 8 tablet 1 04/17/19 25 Active buPROPion XL (WELLBUTRIN XL) 300 MG 24 hr tabletIndications: TERESSA (generalized anxiety disorder) Take 1 tablet (300 mg total) by mouth daily. 90 tablet 1 04/22/19 25 Active venlafaxine XR (EFFEXOR-XR) 75 MG 24 hr capsuleIndications :TERESSA (generalized anxiety disorder) Take 1 capsule (75 mg total) by mouth daily. 30 capsule 2 05/16/19 25 Active FLUoxetine (PROZAC) 20 MG capsuleIndications :TERESSA (generalized anxiety disorder),Moderate episode of recurrent major depressive disorder (CMS/HCC) Take 1 capsule (20 mg total) by mouth daily. 05/16/19 25 Active ubrogepant (UBRELVY) 100 MG tabletIndications: Migraine without aura and without status migrainosus, not intractable Take 1 tab at migraine onset, may repeat dose in 2 hours if needed. Max of 2 tablets (200 mg) in 24 hours 16 tablet 1 05/16/19 25 Active venlafaxine XR (EFFEXOR-XR) 37.5 MG 24 hr capsuleIndications :TERESSA (generalized anxiety disorder) Take 1 capsule (37.5 mg total) by mouth daily. 30 capsule 1 04/17/19 25 025 Discontinued FLUoxetine (PROZAC) 20 MG capsuleIndications :TERESSA (generalized anxiety disorder),Moderate episode of recurrent major depressive disorder (CMS/HCC) Take 2 capsules (40 mg total) by mouth daily. 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 Family history of antiphospholipid syndrome 02/28 Migraine without aura and wi thout status migrainosus, not intractable 03/22/2024 High natural killer cell count determined by uzair w cytometry 03/22/2024 Missed ([facility]) 08/22/2019 TERESSA (generalized anxiety disorder) 04/08/2019 Moderate episode of recurrent major depressive d isorder 04/08/2019 Influenza vaccination declined by patient 2019 Dependent edema 02/21/2018 Medication management 02/21/2018 Encounters Date Type Department Care Team Description 06/12/2024 11:40 AM CDT Telemedicine [place] [id number] [facility] [address] [place] [address] Kelsey Lopez, DIAMOND DRILLER HELPER Medication Check 06/12/2024 Travel 05/15/2024 11:00 AM CDT Telemedicine [place] [address] [facility] [address] [place] [address] Kelsey Lopez, DIAMOND DRILLER HELPER Medication Check 05/15/2024 Travel 04/20/2024 MyChart Message Enc [place] [id number] [facility] [address] [place] [address] Kelsey Lopez, DIAMOND DRILLER HELPER Bubroprion 04/17/2024 9:40 AM RISK ASSESSMENT CONSULTANT Office Visit [place] [address] [address] [facility] [address] [place] [address] Kelsey Lopez, DIAMOND DRILLER HELPER Headache; Congestion 04/17/2024 Travel 04/10/2024 Scan [email or web address] HEALTH INFO SRVCS Scanned, [facility] 04/05/2024 MyChart Message Enc [place] [address] [facility] [address] [place] [address] Kelsey Lopez, DIAMOND DRILLER HELPER anxiety 04/05/2024 Telephone [place] [address] [address] [facility] [address] [place] [address] Kelsey Lopez, DIAMOND DRILLER HELPER Medication; Question 03/25/2024 Telephone [place] [address] [facility] [address] [place] [address] Kelsey Lopez, JACQUI Record Request 03/22/2024 8:20 AM RISK ASSESSMENT CONSULTANT Office Visit [facility] Medical [facility] Multispecialty Care - [address] [place] [address] Kelsey Lopez, DIAMOND DRILLER HELPER Physical 03/22/2024 - 03/22/2024 11:59 PM RISK ASSESSMENT CONSULTANT Hospital Encounter [facility] [place] [address] Kelsey Lopez, JACQUI Discharge Disposition: Home or Self Care (Routine Discharge) 03/22/2024 Travel from Last 3 Months Immunizations Immunization Administration Dates Next Due Afluria 36 MONTHS+ (Prefilled Syringe IIV4) 03/30 Influenza (Generic) 04/12/2019 Influenza Adult (Generic) 01/09/2020,04/12/2019 MODERNA COVID-19 (12+) MRNA, LNP-S, PF, 100 MCG/ 0.5 ML DOSE 04/29/2020,04/14/2020 Tdap (Generic) 06/28/2022 Family History Medical History Relation Comments None Father Stroke Maternal Grandfather Stroke Maternal Grandmother Hypertension Mother Hyperthyroidism Mother antiphospholipid syndrome Mother Relation Status Comments Father Alive Maternal Grandfather Maternal Grandmother Mother Alive Social History Tobacco Use Types Packs/Day Years Used Date Smoking Tobacco: Never Passive Smoke Exposure: Never Smokeless Tobacco: Never Tobacco Cessation:Counseling Given: No Alcohol Use Standard Drinks/Week Comments Yes 0 (1 standard drink = 0.6 oz pur e alcohol) socially AUDIT-C Answer Date Recorded Frequency of Alcohol Consumption 2-4 times a mon02/21/2018 Average Number of Drinks 1 or 2 018 Frequency of Binge Drinking Never 01/28 PHQ-2 Answer Date Recorded Patient Health Questionnaire-2 Score 3 04/17/2024 Education Answer Date Recorded What is the highest level of school you have completed or the highest degree you have received? 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 Not on file Not on file Last Filed Vital Signs Vital Sign Reading Time Taken Comments Blood Pressure 114/79 04/17/2024 10:06 AM RISK ASSESSMENT CONSULTANT Pulse 78 04/17/2024 10:06 AM RISK ASSESSMENT CONSULTANT Temperature 36.9 C (98.4 F) 04/17/2024 10:06 AM RISK ASSESSMENT CONSULTANT Respiratory Rate 18 04/17/2024 10:06 AM RISK ASSESSMENT CONSULTANT Oxygen Saturation 99% 04/17/2024 10:06 AM RISK ASSESSMENT CONSULTANT Inhaled Oxygen Concentration - - Weight 65.8 kg (145 lb) 06/12/2024 11:43 AM CDT Height 162.6 cm (5' 4 ) 06/12/2024 11:43 AM CDT Body Mass Index 24.89 06/12/2024 11:43 AM CDT Plan of Treatment Health Maintenance Due Date Last Done Comments Hepatitis B Vaccines (1 of 3 - 19+ 3-dose series) 2008 Cervical Cancer Screening Pap Smear (Age 30 to 64) Every 3 Years 11/06/2016 11/06/2013 COVID-19 Vaccine ( season) 2023 05/05/2020, 04/29/2020, 04/14/2020, Additional history exists Annual Physical 03/22/2025 03/22/2024, 12/0 07/2022, 05/12/2020, Additional history exists Cervical Cancer Screening Pap with HPV Testing (Age 30 to 64) Every 5 Years 04/13/2027 04/13/2022, 08/31/2016 Cervical Cancer Screening with HPV 04/13/2027 DTaP, Tdap and Td Vaccines (2 - Td or Tdap) 06/28/2032 06/28/2022 Hepatitis C Completed 03/22/2024 PHQ-2 (Physician [place]) Completed 04/17/2024 HPV Vaccines Aged Out No longer eligi ble based on patient's age to complete this topic Meningococcal B Vaccine Aged Out No l onger eligible based on patient's age to complete this topic Meningococcal Vaccine Aged Out No antonio hao eligible based on patient's age to complete this topic Pneumococcal Vaccine: Pediatrics (0 to 5 Years) and At-Risk Patients (6 to 49 Years) Aged Out No longer eligible based on patient's age to complete this topic RSV Immunizations Under 20 Months Aged Out No longer eligible based on patient's age to complete this topic Procedures Procedure Name Priority Date/Time Associated Diagnosis Comments CORONAVIRUS (COVID-19) INFLUENZA A & B ANTIGEN IA PANEL Routine 04/17/2024 Congestion of nasal sinus Acute cough CBC W/DIFF AUTOMATED Routine 03/22/2024 9:27 AM RISK ASSESSMENT CONSULTANT Annual physical exam COMPREHENSIVE METABOLIC PANEL Routine 03/22/2024 9:27 AM RISK ASSESSMENT CONSULTANT Annual physical exam LIPID PANEL Routine 03/22/2024 9:27 AM RISK ASSESSMENT CONSULTANT Annual physical exam TSH W/REFLEX Routine 03/22/2024 9:27 AM RISK ASSESSMENT CONSULTANT Annual physical exam VITAMIN D, 25 OH Routine 03/22/2024 9:27 AM RISK ASSESSMENT CONSULTANT Vitamin D deficiency URINALYSIS, AUTO, COMPLETE Routine 03/22/2024 9:27 AM RISK ASSESSMENT CONSULTANT Annual physical exam HEPATITIS C ANTIBODY Routine 03/22/2024 9:27 AM RISK ASSESSMENT CONSULTANT Need for hepatitis C screening test VITAMIN B-12 Routine 03/22/2024 9:27 AM RISK ASSESSMENT CONSULTANT Encounter for vitamin deficiency screening OUTSIDE CYTOPATH CERV/VAG INTERPRET (PAP) 04/13/2022 from Last 3 Months or Most Recently Relevant to Health Maintenance Results * CORONAVIRUS (COVID-19) INFLUENZA A & B ANTIGEN IA PANEL (04/17/2024) CORONAVIRUS ANTIGEN IA NEGATIVE NEGATIVE [address], [place] INFLUENZA A NEGATIVE NEGATIVE MG-[address], [place] INFLUENZA B NEGATIVE NEGATIVE MG-[address], [place] Internal Control: VALID VALID MG-[address], [place] NASAL STRUCTURE / Unknown 04/17/2024 Kelsey Lopez NP MICROBIOLOGY - GENERAL ORDSilverio MAES Final Result Performing Organization Address City/[facility]/ZIP Co de Phone Number -[phone], [place] [address] [facility] [address] [place] [address], * TSH W/REFLEX (03/22/2024 9:27 AM RISK ASSESSMENT CONSULTANT) TSH 0.958 0.358 - 3.740 uIU/ML 03/22/2024 4:19 PM RISK ASSESSMENT CONSULTANT [facility] 03/22/2024 9:27 AM RISK ASSESSMENT CONSULTANT Kelsey Lopez NP LABORATORY Final Resul t Performing Organization Address City/[facility]/ZIP Co de Phone Number [facility] [address] [place] [address], [place] [phone] * URINALYSIS (03/22/2024 9:27 AM RISK ASSESSMENT CONSULTANT) COLOR (U) YELLOW 03/22/2024 3:18 PM RISK ASSESSMENT CONSULTANT [facility] TRANSPARENCY CLEAR CLEAR 03/22/2024 3:18 PM RISK ASSESSMENT CONSULTANT [facility] SPECIFIC GRAVITY (U) 1.015 1.003 - 1.040 03/22/2024 3:18 PM RISK ASSESSMENT CONSULTANT [facility] U PH 8.5 5.0 - 9.0 03/22/2024 3:18 PM RISK ASSESSMENT CONSULTANT [facility] PROTEIN RANDOM (U) NEGATIVE NEGATIVE 03/22/2024 3:18 PM RISK ASSESSMENT CONSULTANT [facility] GLUCOSE (U) NEGATIVE NEGATIVE 03/22/2024 3:18 PM RISK ASSESSMENT CONSULTANT [facility] KETONES MG/DL (U) NEGATIVE NEGATIVE 03/22/2024 3:18 PM [facility] BILIRUBIN (U) NEGATIVE NEGATIVE 03/22/2024 3:18 PM RISK ASSESSMENT CONSULTANT [facility] BLOOD (U) NEGATIVE NEGATIVE 03/22/2024 3:18 PM [facility] UROBILINOGEN 0.2 0.0 - 2.0 EU/DL 03/22/2024 3:18 PM RISK ASSESSMENT CONSULTANT [facility] NITRITES NEGATIVE NEGATIVE 03/22/2024 3:18 PM RISK ASSESSMENT CONSULTANT [facility] LEUKOCYTES (U) NEGATIVE NEGATIVE 03/22/2024 3:18 PM RISK ASSESSMENT CONSULTANT [facility] RBC/HPF 0-3 0 - 3 /HPF 03/22/2024 3:18 PM RISK ASSESSMENT CONSULTANT [facility] WBC/HPF 0-3 0 - 3 /HPF 03/22/2024 3:18 PM RISK ASSESSMENT CONSULTANT [facility] EPI/HPF 4-9 /HPF 03/22/2024 3:18 PM RISK ASSESSMENT CONSULTANT [facility] BACTERIA (U) NONE SEEN NONE SEEN 03/22/2024 3:18 PM RISK ASSESSMENT CONSULTANT [facility] URINE SPECIMEN OBTAINED BY CLEAN CATCH PROCEDURE / Unknown 03/22/2024 9:27 AM RISK ASSESSMENT CONSULTANT us Kelsey Lopez NP URINE ORDERABLES Final Resu lt [address] [address], [place] [phone] * VITAMIN B-12 (03/22/2024 9:27 AM RISK ASSESSMENT CONSULTANT) VITAMIN B12 S/P/B 687 193 - 986 PG/ML 03/22/2024 4:19 PM RISK ASSESSMENT CONSULTANT [facility] 03/22/2024 9:27 AM RISK ASSESSMENT CONSULTANT us Kelsey Lopez NP LABORATORY Final Resul t Performing Organization Address City/[facility]/ZIP Co de Phone Number [facility] [address] [place] [address], [place] [phone] * (ABNORMAL) COMPREHENSIVE METABOLIC PANEL (03/22/2024 9:27 AM RISK ASSESSMENT CONSULTANT) [facility] SODIUM S/P/B 139 136 - 145 MMOL/L 03/22/2024 4:19 PM [facility] POTASSIUM S/P/B 4.7 3.5 - 5.1 MMOL/L 03/22/2024 4:19 PM [facility] CHLORIDE S/P/B 104 98 - 107 MMOL/L 03/22/2024 4:19 PM [facility] CO2 27.5 21 - 32 MMOL/L 03/22/2024 4:19 PM [facility] GLUCOSE 100(H) 70 - 99 MG/DL 03/22/2024 4:19 PM [facility] BUN 11 7 - 18 MG/DL 03/22/2024 4:19 PM [facility] CREATININE S/P/B 0.82 0.55 - 1.02 MG/DL 03/22/2024 4:19 PM [facility] CALCIUM S/P/B 8.9 8.4 - 10.5 MG/DL 03/22/2024 4:19 PM [facility] BILIRUBIN TOTAL S/P/B 0.4 0.2 - 1.0 MG/DL 03/22/2024 4:19 PM [facility] ALKALINE PHOSPHATASE S/P/B 47 37 - 98 U/L 03/22/2024 4:19 PM [facility] AST 15 15 - 37 U/L 03/22/2024 4:19 PM [facility] ALT 23 14 - 59 U/L 03/22/2024 4:19 PM [facility] TOTAL PROTEIN S/P/B 6.5 6.4 - 8.2 G/DL 03/22/2024 4:19 PM [facility] ALBUMIN S/P/B 3.9 3.4 - 5.0 G/DL 03/22/2024 4:19 PM RISK ASSESSMENT CONSULTANT [facility] ANION GAP 7.5 5 - 15 MMOL/L 03/22/2024 4:19 PM RISK ASSESSMENT CONSULTANT [facility] Comment:REFERENCE RANGE NOT ESTABLISHED OSMOLALITY (CALC) 287 MOSM/KG 025 4:19 PM [facility] Comment:REFERENCE RANGE NOT ESTABLISHED GFR ESTIMATE >90 >90 ML/MIN/1. 73 M2 03/22/2024 4:19 PM [facility] GFR NOTES GFR REFERENCE S: 03/22/2024 4:19 PM [facility] Comment: THE ESTIMATED GFR IS CALCULATED USING THE 2020 CKD-EPI EQUATION. THE FOLLOWING CATEGORIES FOR GRADING RENAL FUNCTION ARE RECOMMENDED BY THE INTERNATIONAL SOCIETY OF NEPHROLOGY (KDIGO 2012 CLINICAL PRACTICE GUIDELINE). G1,NORMAL OR HIGH: >89 ml/min/1.73 m2 G2,MILDLY DECREASED: 60-89 ml/min/1.73 m2 G3A,MILDLY TO MODERATELY DECREASED: 45-59 ml/min/1.73 m2 G3B,MODERATELY TO SEVERELY DECREASED: 30-44 ml/min/1.73 m2 G4,SEVERELY DECREASED: 15-29 ml/min/1.73 m2 G5,KIDNEY FAILURE: <15 ml/min/1.73 m2 03/22/2024 9:27 AM RISK ASSESSMENT CONSULTANT us Kelsey Lopez NP LABORATORY Final Resul t [facility] [address] [place] [address], * LIPID PANEL (03/22/2024 9:27 AM RISK ASSESSMENT CONSULTANT) CHOLESTEROL 184 <200 MG/DL 03/22/2024 4:19 PM [facility] TRIGLYCERIDES 29 <150 MG/DL 03/22/2024 4:19 PM [facility] HDL 92 >40 MG/DL 03/22/2024 4:19 PM [facility] LDL-C 86 <100 MG/DL 03/22/2024 4:19 PM RISK ASSESSMENT CONSULTANT [facility] VLDL CALCULATION 6 5 - 28 MG/DL 03/22/2024 4:19 PM RISK ASSESSMENT CONSULTANT [facility] CHOL/HDL RATIO 2.0 0.0 - 4.0 03/22/2024 4:19 PM RISK ASSESSMENT CONSULTANT [facility] LDL/HDL 0.9 0.41 - 2.13 03/22/2024 4:19 PM RISK ASSESSMENT CONSULTANT [facility] NON HDL CHOLESTEROL 92 <140 MG/DL 03/22/2024 4:19 PM RISK ASSESSMENT CONSULTANT [facility] 03/22/2024 9:27 AM RISK ASSESSMENT CONSULTANT Kelsey Lopez NP LABORATORY Final Resul t Performing Organization Address [facility]/ZIP Co de Phone Number [facility] [address] [place] [address], * HEPATITIS C ANTIBODY (03/22/2024 9:27 AM RISK ASSESSMENT CONSULTANT) Pathologist [facility] HEPATITIS C AB NON-REACTI VE NON-REACT BARRETT 03/22/2024 7:18 PM RISK ASSESSMENT CONSULTANT [facility] Comment: ANTIBODIES TO HCV NOT DETECTED. DOES NOT EXCLUDE THE POSSIBILITY OF EXPOSURE TO HCV. 03/22/2024 9:27 AM RISK ASSESSMENT CONSULTANT Kelsey Lopez NP LABORATORY Final Resul t Performing Organization Address City/[facility]/ZIP Co de Phone Number [facility] [address] [place] [address], [place] [phone] * (ABNORMAL) CBC W/DIFF AUTOMATED (03/22/2024 9:27 AM RISK ASSESSMENT CONSULTANT) Pathologist [facility] WBC 5.02 4.00 - 10.80 x10'3/uL 03/22/2024 2:42 PM RISK ASSESSMENT CONSULTANT [facility] RBC 4.33 4.10 - 5.40 x10'6/uL 03/22/2024 2:42 PM [facility] HGB 13.5 12.0 - 16.0 G/DL 03/22/2024 2:42 PM [facility] HCT 41.2 36.0 - 47.0 % 03/22/2024 2:42 PM [facility] MCV 95.2 78.0 - 100.0 FL 03/22/2024 2:42 PM [facility] MCH 31.2(H) 27.0 - 31.0 PG 03/22/2024 2:42 PM [facility] MCHC 32.8(L) 33.0 - 36.0 G/DL 03/22/2024 2:42 PM [facility] RDW 12.4 11.5 - 14.5 % 03/22/2024 2:42 PM [facility] PLT 237 150 - 350 x10'3/uL 03/22/2024 2:42 PM [facility] MPV 9.4 7.4 - 10.4 FL 03/22/2024 2:42 PM [facility] DIFFERENTIAL TYPE AUTOMATED DIFFERENTIAL 03/22/2024 2:43 PM [facility] NEUTROPHILS % 62.1 % 03/22/2024 2:43 PM [facility] LYMPHOCYTES % 28.5 % 03/22/2024 2:43 PM [facility] MONOCYTES % 7.4 % 03/22/2024 2:43 PM [facility] EOSINOPHILS % 1.4 % 03/22/2024 2:43 PM [facility] BASOPHILS % 0.4 % 03/22/2024 2:43 PM [facility] IMMATURE GRANS % 0.2 % 03/22/2024 2:43 PM [facility] ABS. NEUTROPHILS 3.12 1.60 - 8.30 x10'3/uL 03/22/2024 2:43 PM RISK ASSESSMENT CONSULTANT [facility] ABS. LYMPHOCYTES 1.43 0.80 - 4.70 x10'3/uL 03/22/2024 2:43 PM RISK ASSESSMENT CONSULTANT [facility] ABS. MONOCYTES 0.37 0.00 - 1.50 x10'3/uL 03/22/2024 2:43 PM RISK ASSESSMENT CONSULTANT [facility] ABS. EOSINOPHILS 0.07 0.00 - 0.40 x10'3/uL 03/22/2024 2:43 PM RISK ASSESSMENT CONSULTANT [facility] ABS. BASOPHILS 0.02 0.00 - 0.20 x10'3/uL 03/22/2024 2:43 PM RISK ASSESSMENT CONSULTANT [facility] ABS. IMMATURE GRANULOCYTES 0.01 0.00 - 0.03 x10'3/uL 03/22/2024 2:43 PM RISK ASSESSMENT CONSULTANT [facility] 03/22/2024 9:27 AM RISK ASSESSMENT CONSULTANT us Kelsey Lopez NP LABORATORY Final Resul t Performing Organization Address City/[facility]/ZIP Co de Phone Number [address] [address], * VITAMIN D, 25 OH (03/22/2024 9:27 AM RISK ASSESSMENT CONSULTANT) Pathologist [facility] VITAMIN D 25 HYDROXY TOTAL S/P/B 33.4 30 - 100 NG/ML 03/22/2024 4:19 PM RISK ASSESSMENT CONSULTANT [facility] Comment: DEFICIENT <20 INSUFFICIENT 20-30 SUFFICIENT 30-100 03/22/2024 9:27 AM RISK ASSESSMENT CONSULTANT Kelsey Lopez NP LABORATORY Final Resul t Performing Organization Address City/[facility]/ZIP Co de Phone Number [address] [address], * PAP SMEAR WITH HPV (04/13/2022) 04/13/2022 us [facility] Scanned SCANNING Final Resu lt from Last 3 Months or Most Recently Relevant to Health Maintenance Insurance [facility] Care Teams Herbologist Relationship Specialty Start Date End Date Kelsey Lopez, JACQUI [address] [place] [address] PCP - General NURSE PRACTITIONER 09/28/23
--- OUTSIDE RECORDS SUMMARY | 2024-06-12 11:49 | XMS_ITS | Encounter Summary ---
Author Organization [facility] Address [address] [place] [address] Care Team Providers Care Signal Operator Linguist Name Role Phone Liat Arredondo [facility] Primary Care Provider + Kelsey Lopez NP Primary Care Provider [phone] Encounter Details Date Type Department Care Team (Late st Contact Info) Description 08/05/2021 [employer] Message Enc [facility] Medical Group Family & Internal Medicine [address] [address] [facility] Provider Due for routine follow up Social History Tobacco Use Types Packs/Day Years [...] Sex Assigned at Female 03/22/2024 8:36 AM DISTRIBUTION WAREHOUSE MANAGER Legal Sex Female 8:06 AM CDT Gender Identity Female 03/22/2024 8:36 AM DISTRIBUTION WAREHOUSE MANAGER Sexual Orientation Straight 04/17/2024 10 :06 AM DISTRIBUTION WAREHOUSE MANAGER 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 Not on file Not on file documented as of this encounter Plan of Treatment Not on file documented as of this encounter Visit Diagnoses Not on filedocumented in this encounter Additional Health Concerns Infection Onset Date Last Indicated Resolved Time COVID-19 Rule Out 09/28/2023 09/28/2023 09/28/2023 3:21 PM CDT COVID-19 Rule Out 04/17/2024 04/17/2024 04/17/2024 12:48 PM DISTRIBUTION WAREHOUSE MANAGER Assessment Noted Time PHQ-9 Depression Total Score: 5 04/04/19 20 9:23 AM DISTRIBUTION WAREHOUSE MANAGER documented as of this encounter Care Teams Signal Operator Linguist Relationship Specialty Start Date End Date Liat Arredondo FNP- PCP - General Nurse Practitioner Family 04/04/1901/31/23 Kelsey Lopez, WATER ANALYST [address] [facility] [address] [place] [address] PCP - General NURSE PRACTITIONER 09/28/23 documented as of this encounter
--- OUTSIDE RECORDS SUMMARY | 2024-06-12 11:49 | XMS_ITS | Clinical Summary ---
Author Organization [facility] Address [address] [address] Care Team Providers Care Drainman Name Role Phone Unavailable Primary Care Provider Unavailabl e Source Comments [facility],non-owned Affiliates and Associated Physician Practices is amultiple site organization consisting of ambulatory clinics and hospital sitesin [place], [place], [place] and [place]. This disclosure is being madepursuant to the Care Everywhere program and may not contain all information available regarding this patient. Last updated 17.[facility] Allergies Active Allergy Reactions Criticality Noted Date Comments Nickel Rash Medium 11/15/2017 Medications * Be aware that medications may not be up to date on this document. Alwaysverify current medications with the patient. No known medications Social History Tobacco Use Types Packs/Day Years Used Date Smoking Tobacco: Never Assessed Comments Unknown Sex and Gender Information Value Date Recorded Sex Assigned at Not on file Legal Sex Female 4:27 PM CDT Gender Identity Not on file Sexual Orientation Not on file Plan of Treatment Health Maintenance Due Date Last Done Comments HIV SCREENING 2004 HEPATITIS C SCREENING 03/13/2007 DTAP/TDAP/TD VACCINES (1 - Tdap) 2008 HEPATITIS B VACCINE (1 of 3 - 19+ 3-dose series) 2008 COVID-19 VACCINE ( - 2023-2 5 season) 2023 DEPRESSION SCREENING 02/28/2024 INFLUENZA VACCINE (Season Ended) 2024 ZOSTER VACCINE (1 of 2) 2039 HIB VACCINE Aged Out No longer eligi ble based on patient's age to complete this topic HPV VACCINE Aged Out No longer eligi ble based on patient's age to complete this topic MENINGOCOCCAL (Group B) VACC INE SHARED DECISION-MAKING Aged Out No longer eligibl e based on patient's age to complete this topic MENINGOCOCCAL GROUPS A/C/Y/W VACCINE Aged Out No longer eligible b ased on patient's age to complete this topic PNEUMOCOCCAL VACCINE Aged Out No long er eligible based on patient's age to complete this topic Insurance
--- OUTSIDE RECORDS SUMMARY | 2024-06-12 11:49 | XMS_ITS | Encounter Summary ---
Author Organization [facility] Address [address] [place] [address] Care Team Providers Care Sausage Inspector Name Role Phone Kelsey Lopez NP Primary Care Provider [phone] Reason for Visit * Reason Comments Medication Check Encounter Details Date Type Department Care Team (Late st Contact Info) Description 06/12/2024 11:40 AM CDT Telemedicine [facility] Medical Group Multispecialty Care - [place] 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 Not on file Not on file documented as of this encounter Last Filed Vital Signs Vital Sign Reading Time Taken Comments Blood Pressure - - Pulse - - Temperature - - Respiratory Rate - - Oxygen Saturation - - Inhaled Oxygen Concentration - - Weight 65.8 kg (145 lb) 06/12/2024 11:43 AM CDT Height 162.6 cm (5' 4 ) 06/12/2024 11:43 AM CDT Body Mass Index 24.89 06/12/2024 11:43 AM CDT documented in this encounter Plan of Treatment Not on file documented as of this encounter Visit Diagnoses Not on filedocumented in this encounter Additional Health Concerns Assessment Noted Time PHQ-9 Depression Total Score: 15 025 11:09 AM TURBO OPERATOR documented as of this encounter Care Teams Sausage Inspector Relationship Specialty Start Date End Date Kelsey Lopez, HEAVY TRUCK TECHNICIAN [address] [place] [address] PCP - General NURSE PRACTITIONER 09/28/23 documented as of this encounter
--- OUTSIDE RECORDS SUMMARY | 2024-06-12 11:49 | XMS_ITS | Encounter Summary ---
Author Organization [facility] Address [address] [place] [address] Care Team Providers Care Candy Cutter Hand Name Role Phone Liat Arredondo [facility] Primary Care Provider + Kelsey Lopez NP Primary Care Provider [phone] Encounter Details Date Type Department Care Team (Late st Contact Info) Description 03/07/2022 MyCPyng Medicalt Message Enc [facility] Medical Group Family & Internal Medicine [address] [address] Liat Arredondo [address] [address] [place] Social History Tobacco Use Types Packs/Day Years [...] Sex Assigned at Female 03/22/2024 8:36 AM FITNESS STUDIES TEACHER Legal Sex Female 8:06 AM CDT Gender Identity Female 03/22/2024 8:36 AM FITNESS STUDIES TEACHER Sexual Orientation Straight 04/17/2024 10 :06 AM FITNESS STUDIES TEACHER 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 Not on file Not on file documented as of this encounter Plan of Treatment Not on file documented as of this encounter Visit Diagnoses Not on filedocumented in this encounter Additional Health Concerns Infection Onset Date Last Indicated Resolved Time COVID-19 Rule Out 09/28/2023 09/28/2023 09/28/2023 3:21 PM CDT COVID-19 Rule Out 04/17/2024 04/17/2024 04/17/2024 12:48 PM FITNESS STUDIES TEACHER Assessment Noted Time PHQ-9 Depression Total Score: 5 04/04/19 20 9:23 AM FITNESS STUDIES TEACHER documented as of this encounter Care Teams Candy Cutter Hand Relationship Specialty Start Date End Date Liat Arredondo FNP-BC PCP - General Nurse Practitioner Family 04/04/1901/31/23 Kelsey Lopez, ORACLE DATABASE DEVELOPER [address] [place] [address] PCP - General NURSE PRACTITIONER 09/28/23 documented as of this encounter
--- OUTSIDE RECORDS SUMMARY | 2024-06-12 11:49 | XMS_ITS | Encounter Summary ---
Author Organization [facility] Address [address] [place] [address] Care Team Providers Care Spanish Language Lecturer Name Role Phone Liat Arredondo [facility] Primary Care Provider + Kelsey Lopez NP Primary Care Provider [phone] Encounter Details Date Type Department Care Team (Late st Contact Info) Description 09/20/2021 MyCWuhan [facility] Message Enc [facility] Medical Group Family & Internal Medicine [address] [address] Liat Arredondo [address] [address] Sick Social History Tobacco Use Types Packs/Day Years [...] Sex Assigned at Female 03/22/2024 8:36 AM HIDE BUFFER Legal Sex Female 8:06 AM CDT Gender Identity Female 03/22/2024 8:36 AM HIDE BUFFER Sexual Orientation Straight 04/17/2024 10 :06 AM HIDE BUFFER 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 Unable to assess 09/23/2021 6:53 AM CDT documented as of this encounter Progress Notes * MARY CARMEN Valdovinos - 09/23/2021 2:08 PM CDT Discussed at office visit 09/23/21. * Meseret De La Cruz RN - 09/21/2021 9:58 AM CDT Please advise. She does have a med refill appt on 09/23/21 documented in this encounter Plan of Treatment Not on file documented as of this encounter Visit Diagnoses Not on filedocumented in this encounter Additional Health Concerns Infection Onset Date Last Indicated Resolved Time COVID-19 Rule Out 09/28/2023 09/28/2023 09/28/2023 3:21 PM CDT COVID-19 Rule Out 04/17/2024 04/17/2024 04/17/2024 12:48 PM HIDE BUFFER Assessment Noted Time PHQ-9 Depression Total Score: 5 04/04/19 20 9:23 AM HIDE BUFFER documented as of this encounter Care Teams Spanish Language Lecturer Relationship Specialty Start Date End Date Liat Arredondo FNP-BC PCP - General Nurse Practitioner Family [birth year]/04/1901/31/23 Kelsey Lopez, JACQUI [address] [place] [address] PCP - General NURSE PRACTITIONER 09/28/23 documented as of this encounter
--- OUTSIDE RECORDS SUMMARY | 2024-06-12 11:49 | XMS_ITS | Encounter Summary ---
Author Organization [facility] Address [address] [place] [address] Care Team Providers Care Wool Hat Sanding Machine Operator Name Role Phone Jessica, Kelsey Pino C ARCHITECT Primary Care Provider [phone] Encounter Details Date Type Department Care Team (Latest Contact Info) Description 06/12/2024 Travel Social History Tobacco Use Types Packs/Day Years Used Date Smoking Tobacco: Never Passive Smoke Exposure: Never Smokeless Tobacco: Never Alcohol Use Standard [...] Sex Assigned at Female 03/22/2024 8:36 AM SITE ADMINISTRATOR Legal Sex Female 8:06 AM CDT Gender Identity Female 03/22/2024 8:36 AM SITE ADMINISTRATOR Sexual Orientation Straight 04/17/2024 10 :06 AM SITE ADMINISTRATOR 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
--- OUTSIDE RECORDS SUMMARY | 2024-06-12 11:49 | XMS_ITS | Encounter Summary ---
Author Organization [facility] Address [address] [place] [address] Care Team Providers Care Brake Operator Name Role Phone Kelsey Lopez NP Primary Care Provider [phone] Encounter Details Date Type Department Care Team (Late st Contact Info) Description 04/05/2024 [email or web address] Message Enc [facility] Medical Group Multispecialty Care - [place] [address] [place] [address] Kelsey Lopez, TRIM AND BURR OPERATOR [address] [place] [address] anxiety Social History Tobacco Use Types Packs/Day Years [...] Answer Date Recorded Patient Health Questionnaire-2 Score 2 03/22/2024 Education Answer Date Recorded What is the highest level of school you have completed or the highest degree you have received? 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 Not on file Not on file documented as of this encounter Plan of Treatment Not on file documented as of this encounter Visit Diagnoses Not on filedocumented in this encounter Additional Health Concerns Infection Onset Date Last Indicated Resolved Time COVID-19 Rule Out 04/17/2024 04/17/2024 04/17/2024 12:48 PM SVP MONETIZATION Assessment Noted Time PHQ-9 Depression Total Score: 14 025 11:11 AM SVP MONETIZATION documented as of this encounter Care Teams Brake Operator Relationship Specialty Start Date End Date Kelsey Lopez, TRIM AND BURR OPERATOR [address] [place] [address] PCP - General NURSE PRACTITIONER 09/28/23 documented as of this encounter
--- OUTSIDE RECORDS SUMMARY | 2024-06-12 11:49 | XMS_ITS | Clinical Summary ---
Author Organization [facility] Care Team Providers Care Maintenance Superintendent Name Role Phone Unavailable Primary Care Provider Unavailabl e Social History Tobacco Use Types Packs/Day Years Used Date Smoking Tobacco: Never Assessed Comments Unknown Sex and Gender Information Value Date Recorded Sex Assigned at Not on file Legal Sex Female 2:48 PM CDT Gender Identity Not on file Sexual Orientation Not on file Plan of Treatment Health Maintenance Due Date Last Done Comments Hepatitis C Virus (HCV) Screening 1989 TdaP Immunization 1989 Hepatitis B Immunization (1 of 3 - 19+ 3-dose series) 2008 Pap Smear 2010 Cervical Cancer Screening (CCS) 2019 HPV/Cotest 2019 Influenza Immunization (#1) 2023 04/12/2019 SARS-COV-2 Immunization ( season) 2023 04/29/2020, 04/14/2020 Respiratory Syncytial Virus (RSV) Immunization (Adult) (1 - 1-dose 75+ series) 2064 Meningococcal Immunization (ACWY) Aged Out No longer eligible b ased on patient's age to complete this topic Pneumococcal Immunization Combined Aged Out No longer eligible b ased on patient's age to complete this topic Rotavirus Immunization Aged Out No lo nger eligible based on patient's age to complete this topic
--- OUTSIDE RECORDS SUMMARY | 2024-06-12 11:49 | XMS_ITS | Encounter Summary ---
Author Organization [facility] Address [address] [place] [address] Care Team Providers Care Ladle Puller Name Role Phone Liat Arredondo [facility] Primary Care Provider + Kelsey Lopez NP Primary Care Provider [phone] Encounter Details Date Type Department Care Team (Late st Contact Info) Description 04/09/2021 MyCFraxiont Message Enc [facility] Medical Group Family & Internal Medicine [address] [address] Liat Arredondo [address] [address] Me again Social History Tobacco Use Types Packs/Day Years [...] Sex Assigned at Female 03/22/2024 8:36 AM STRAWHAT INSPECTOR AND PACKER Legal Sex Female 8:06 AM CDT Gender Identity Female 03/22/2024 8:36 AM STRAWHAT INSPECTOR AND PACKER Sexual Orientation Straight 04/17/2024 10 :06 AM STRAWHAT INSPECTOR AND PACKER 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 on file Not on file documented as of this encounter Plan of Treatment Not on file documented as of this encounter Visit Diagnoses Not on filedocumented in this encounter Additional Health Concerns Infection Onset Date Last Indicated Resolved Time COVID-19 Rule Out 09/28/2023 09/28/2023 09/28/2023 3:21 PM CDT COVID-19 Rule Out 04/17/2024 04/17/2024 04/17/2024 12:48 PM STRAWHAT INSPECTOR AND PACKER Assessment Noted Time PHQ-9 Depression Total Score: 5 04/04/19 20 9:23 AM STRAWHAT INSPECTOR AND PACKER documented as of this encounter Care Teams Ladle Puller Relationship Specialty Start Date End Date Liat Arredondo FNP-BC PCP - General Nurse Practitioner Family [birth year]/1901/31/23 Kelsey Lopez, DEVULCANIZER HEAD [address] [place] [address] PCP - General NURSE PRACTITIONER 09/28/23 documented as of this encounter
--- OUTSIDE RECORDS SUMMARY | 2024-06-12 11:49 | XMS_ITS | Clinical Summary ---
Author Organization [facility] Address [address] [place] [phone] Phone Care Team Providers Care Wire Taper Name Role Phone Unavailable Primary Care Provider Unavailabl e Allergies No known active allergies Medications vit-iron fumarate-fa (CARSON ) 28 mg iron- 800 mcg Tablet Take 1 Tablet by mouth daily. Active FLUoxetine (PROzac) 20 mg tablet Take 20 mg by mouth daily. Active buPROPion HCL (WELLBUTRIN XL) 150 mg Extended Release 24 hour tablet Take 150 mg by mouth daily insights strategist. Active Active Problems Problem Noted Date Diagnosed Date Missed 08/22/2019 Immunizations Immunization Administration Dates Next Due INFLUENZA VACCINE QUADRIVALENT 6 MOS UP PF IM Family History Medical History Relation Name Comments Hypertension Mother Breast Cancer Neg Hx Cancer Neg Hx Colon Cancer Neg Hx Diabetes Neg Hx Ovarian Cancer Neg Hx Relation Name Status Comments Mother Social History Tobacco Use Types Packs/Day Years Used Date Smoking Tobacco: Never Alcohol Use Standard Drinks/Week Comments Yes 0 (1 standard drink = 0.6 oz pur e alcohol) Social Connections Answer Date Recorded In a typical week, how many times do you talk on the phone with family, friends, or neighbors? More than three times a week 08/22/2019 How often do you get togethe r with friends or relatives? Once a week 08/22/2019 How often do you attend chur ch or mormon services? 1 to 4 times per year 08/22/2019 Do you belong to any clubs o r organizations such as adventist groups, unions, fraternal or athletic groups, or school groups? Yes 08/22/2019 How often do you attend meet ings of the clubs or organizations you belong to? 1 to 4 times per year 08/22/2019 Are you , , di vorced, , never , or living with a partner? 08/22/2019 Financial Resource Strain Answer Date R ecorded How hard is it for you to pa y for the very basics like food, housing, medical care, and heating? Not hard at all 08/22/2019 Food Insecurity Answer Date Recorded Within the past 12 months, y ou worried that your food would run out before you got the money to buy more. Never true 08/22/19 20 Within the past 12 months, t he food you bought just didn't last and you didn't have money to get more. Never true 08/22/2019 Transportation Needs Answer Date Record ed In the past 12 months, has l ack of transportation kept you from medical appointments or from getting medications? No 07/29 In the past 12 months, has l ack of transportation kept you from meetings, work, or from getting things needed for daily living? 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 Not on file Not on file Last Filed Vital Signs Vital Sign Reading Time Taken Comments Blood Pressure 118/76 09/19/2019 10:24 AM CDT Pulse 66 09/19/2019 10:24 AM CDT Temperature - - Respiratory Rate - - Oxygen Saturation - - Inhaled Oxygen Concentration - - Weight 63.5 kg (140 lb) 09/19/2019 10:24 AM CDT Height - - Body Mass Index - - Plan of Treatment Health Maintenance Due Date Last Done Comments DTAP/TDAP/TD VACCINES (1 - Tdap) 2008 HEPATITIS B VACCINES (1 of 3 - 19+ 3-dose series) 2008 HPV/Cotest (21-29) 2010 CERVICAL CANCER SCREENING 2019 HPV/Cotest (30-65) 2019 PAP SMEAR 2019 INFLUENZA VACCINE (#1) 2023 01/09/2020 HPV VACCINES Aged Out No longer eligi ble based on patient's age to complete this topic Insurance [facility] [id number]
--- OUTSIDE RECORDS SUMMARY | 2024-06-12 11:49 | XMS_ITS | Encounter Summary ---
Author Organization [facility] Address [address] [place] [address] Care Team Providers Care Equipment Oiler Name Role Phone Liat Arredondo [facility] Primary Care Provider + Kelsey Lopez NP Primary Care Provider [phone] Encounter Details Date Type Department Care Team (Late st Contact Info) Description 09/23/2021 MyCWanovat Message Enc [facility] Medical Group Family & Internal Medicine [address] [address] Liat Arredondo [address] [address] Insurance Card Social History Tobacco Use Types Packs/Day Years [...] Sex Assigned at Female 03/22/2024 8:36 AM KNITTER WIRE MESH Legal Sex Female 8:06 AM CDT Gender Identity Female 03/22/2024 8:36 AM KNITTER WIRE MESH Sexual Orientation Straight 04/17/2024 10 :06 AM KNITTER WIRE MESH 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 Unable to assess 09/23/2021 6:53 AM CDT documented as of this encounter Plan of Treatment Not on file documented as of this encounter Visit Diagnoses Not on filedocumented in this encounter Additional Health Concerns Infection Onset Date Last Indicated Resolved Time COVID-19 Rule Out 09/28/2023 09/28/2023 09/28/2023 3:21 PM CDT COVID-19 Rule Out 04/17/2024 04/17/2024 04/17/2024 12:48 PM KNITTER WIRE MESH Assessment Noted Time PHQ-9 Depression Total Score: 5 04/04/19 20 9:23 AM KNITTER WIRE MESH documented as of this encounter Care Teams Equipment Oiler Relationship Specialty Start Date End Date Liat Arredondo FNP- PCP - General Nurse Practitioner Family [birth year]/1901/[birth year]/23 Kelsey Lopez, JACQUI [address] [place] [address] PCP - General NURSE PRACTITIONER 09/28/23 documented as of this encounter
[2024-06-13 06:33] LABS: Progesterone 23.5 ng/mL
== END 2024-06-12 10:29 | disposition home or self-care (01) ==
LOC: ANHLAB 10:34
PROVIDERS: PCP Nurse Practitioner; Visit Provider Obstetrics & Gynecology
DX: O03.9 Complete or unspecified spontaneous abortion without complication (principal); Z3A.00 Weeks of gestation of pregnancy not specified
CPT/HCPCS: 36415; 84144; 84702

== ENCOUNTER 2024-06-14 09:29 | Outpatient (CLI) | payer BC, SELFPAY ==
--- OUTSIDE RECORDS SUMMARY | 2024-06-14 09:33 | XMS_ITS | Encounter Summary ---
Author Organization [facility] Address [address] [place] [address] Care Team Providers Care Classified Advertising Clerk Name Role Phone Kelsey Lopez NP Primary Care Provider [phone] Encounter Details Date Type Department Care Team (Late st Contact Info) Description 06/12/2024 The Roundtablet Message Enc [facility] Medical Group Multispecialty Care - [place] 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
--- OUTSIDE RECORDS SUMMARY | 2024-06-14 09:33 | XMS_ITS | Encounter Summary ---
Author Organization [facility] Address [address] [place] [address] Care Team Providers Care Home Health Care Case Manager Name Role Phone Liat Arredondo [facility] Primary Care Provider + Kelsey Lopez NP Primary Care Provider [phone] Encounter Details Date Type Department Care Team (Late st Contact Info) Description 04/09/2021 MyCWilocityt Message Enc [facility] Medical Group Family & Internal Medicine [address] [address] Liat Arredondo [address] [address] Me again Social History Tobacco [...] Sex Assigned at Female 03/22/2024 8:36 AM SUBSTATION INSPECTOR Legal Sex Female 8:06 AM CDT Gender Identity Female 03/22/2024 8:36 AM SUBSTATION INSPECTOR Sexual Orientation Straight 04/17/2024 10 :06 AM SUBSTATION INSPECTOR 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 Not on file Not on file documented as of this encounter Plan of Treatment Not on file documented as of this encounter Visit Diagnoses Not on filedocumented in this encounter Additional Health Concerns Infection Onset Date Last Indicated Resolved Time COVID-19 Rule Out 09/28/2023 09/28/2023 09/28/2023 3:21 PM CDT COVID-19 Rule Out 04/17/2024 04/17/2024 04/17/2024 12:48 PM SUBSTATION INSPECTOR Assessment Noted Time PHQ-9 Depression Total Score: 5 04/04/19 20 9:23 AM SUBSTATION INSPECTOR documented as of this encounter Care Teams Home Health Care Case Manager Relationship Specialty Start Date End Date Liat Arredondo FNP-BC PCP - General Nurse Practitioner Family 04/04/1901/31/23 Kelsey Lopez, POLICE RESERVES COMMANDER [address] [place] [address] PCP - General NURSE PRACTITIONER 09/28/23 documented as of this encounter
--- OUTSIDE RECORDS SUMMARY | 2024-06-14 09:33 | XMS_ITS | Encounter Summary ---
Author Organization [facility] Address [address] [place] [address] Care Team Providers Care Machine Chocolate Molder Name Role Phone Liat Arredondo [facility] Primary Care Provider + Kelsey Lopez NP Primary Care Provider [phone] Encounter Details Date Type Department Care Team (Late st Contact Info) Description 08/05/2021 Experenti Message Enc [facility] Medical Group Family & Internal Medicine [address] [address] [facility] Provider Due for routine follow up Social [...] Sex Assigned at Female 03/22/2024 8:36 AM SECURITIES SETTLEMENT PROCESSOR Legal Sex Female 8:06 AM CDT Gender Identity Female 03/22/2024 8:36 AM SECURITIES SETTLEMENT PROCESSOR Sexual Orientation Straight 04/17/2024 10 :06 AM SECURITIES SETTLEMENT PROCESSOR 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 Not on file Not on file documented as of this encounter Plan of Treatment Not on file documented as of this encounter Visit Diagnoses Not on filedocumented in this encounter Additional Health Concerns Infection Onset Date Last Indicated Resolved Time COVID-19 Rule Out 09/28/2023 09/28/2023 09/28/2023 3:21 PM CDT COVID-19 Rule Out 04/17/2024 04/17/2024 04/17/2024 12:48 PM SECURITIES SETTLEMENT PROCESSOR Assessment Noted Time PHQ-9 Depression Total Score: 5 04/04/19 20 9:23 AM SECURITIES SETTLEMENT PROCESSOR documented as of this encounter Care Teams Machine Chocolate Molder Relationship Specialty Start Date End Date Liat Arredondo FNP- PCP - General Nurse Practitioner Family 04/04/1901/31/23 Kelsey Lopez, WARRANT CLERK [address] [facility] [address] [place] [address] PCP - General NURSE PRACTITIONER 09/28/23 documented as of this encounter
--- OUTSIDE RECORDS SUMMARY | 2024-06-14 09:33 | XMS_ITS | Encounter Summary ---
Author Organization [facility] Address [address] [place] [address] Care Team Providers Care Television News Reporter Name Role Phone Liat Arredondo [facility] Primary Care Provider + Kelsey Lopez NP Primary Care Provider [phone] Encounter Details Date Type Department Care Team (Late st Contact Info) Description 05/04/2021 MyCSweet Credt Message Enc [facility] Medical [facility] Family & Internal Medicine [address] [address] Liat Arredondo [address] [phone] Lab results Social History Tobacco Use Types [...] Sex Assigned at Female 03/22/2024 8:36 AM ASPHALT HEATER TENDER Legal Sex Female 8:06 AM CDT Gender Identity Female 03/22/2024 8:36 AM ASPHALT HEATER TENDER Sexual Orientation Straight 04/17/2024 10 :06 AM ASPHALT HEATER TENDER 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 ALT HEATER TENDER documented in this encounter Plan of Treatment Not on file documented as of this encounter Visit Diagnoses Not on filedocumented in this encounter Additional Health Concerns Infection Onset Date Last Indicated Resolved Time COVID-19 Rule Out 09/28/2023 09/28/2023 09/28/2023 3:21 PM CDT COVID-19 Rule Out 04/17/2024 04/17/2024 04/17/2024 12:48 PM ASPHALT HEATER TENDER Assessment Noted Time PHQ-9 Depression Total Score: 5 04/04/19 20 9:23 AM ASPHALT HEATER TENDER documented as of this encounter Care Teams Television News Reporter Relationship Specialty Start Date End Date Liat Arredondo FNP- PCP - General Nurse Practitioner Family 04/04/1901/31/23 Kelsey Lopez NP [address] [place] [address] PCP - General NURSE PRACTITIONER 09/28/23 documented as of this encounter
--- OUTSIDE RECORDS SUMMARY | 2024-06-14 09:33 | XMS_ITS | Encounter Summary ---
Author Organization [facility] Address [address] [place] [address] Care Team Providers Care Inside Sales Name Role Phone Liat Arredondo [facility] Primary Care Provider + Kelsey Lopez NP Primary Care Provider [phone] Encounter Details Date Type Department Care Team (Late st Contact Info) Description 03/07/2022 MyCNodeablet Message Enc [facility] Medical Group Family & Internal Medicine [address] [address] Liat Arredondo [address] [address] Lucien Social History Tobacco Use [...] Sex Assigned at Female 03/22/2024 8:[address] RECORDING MONITOR Legal Sex Female 8:06 AM CDT Gender Identity Female 03/22/2024 8:[address] RECORDING MONITOR Sexual Orientation Straight 04/17/2024 10 :[address] RECORDING MONITOR Occupation Industry Job Start Date Job End Date [employer] Not on file Not on file Not on file documented as of this encounter Plan of Treatment Not on file documented as of this encounter Visit Diagnoses Not on filedocumented in this encounter Additional Health Concerns Infection Onset Date Last Indicated Resolved Time COVID-19 Rule Out 09/28/2023 09/28/2023 09/28/2023 3:21 PM CDT COVID-19 Rule Out 04/17/2024 04/17/2024 04/17/2024 12:[address] RECORDING MONITOR Assessment Noted Time PHQ-9 Depression Total Score: 5 04/04/19 20 9:[address] RECORDING MONITOR documented as of this encounter Care Teams Inside Sales Relationship Specialty Start Date End Date Liat Arredondo FNP-BC PCP - General Nurse Practitioner Family 04/04/1901/31/23 Kelsey Lopez, HAND MODEL [address] [facility] [address] [place] [address] PCP - General NURSE PRACTITIONER 09/28/23 documented as of this encounter
--- OUTSIDE RECORDS SUMMARY | 2024-06-14 09:33 | XMS_ITS | Clinical Summary ---
Author Organization [facility] Address [address] [place] [address] Care Team Providers Care Boat Diesel Motor Mechanic Name Role Phone Unavailable Primary Care Provider Unavailabl e Source Comments [facility],non-owned Affiliates and Associated Physician Practices is amultiple site organization consisting of ambulatory clinics and hospital sitesin [place] and [place]. This disclosure is being madepursuant to the Care Everywhere program and may not contain all information available regarding this patient. Last updated 17.[facility] [employer] Allergies Active Allergy Reactions Criticality Noted Date [...]
--- OUTSIDE RECORDS SUMMARY | 2024-06-14 09:33 | XMS_ITS | Encounter Summary ---
Author Organization [facility] Address [address] [place] [address] Care Team Providers Care Stock Counter Name Role Phone Liat Arredondo [facility] Primary Care Provider + Kelsey Lopez NP Primary Care Provider [phone] Encounter Details Date Type Department Care Team (Late st Contact Info) Description 02/02/2021 tadot Message Enc [facility] Medical Group Family & Internal Medicine [address] [address] Liat Arredondo [address] [phone] Other Social History Tobacco Use [...] Sex Assigned at Female 03/22/2024 8:36 AM CASING FLUSHER Legal Sex Female 8:06 AM CDT Gender Identity Female 03/22/2024 8:36 AM CASING FLUSHER Sexual Orientation Straight 04/17/2024 10 :06 AM CASING FLUSHER 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 Unable to assess 02/04/2021 7:11 AM CASING FLUSHER documented as of this encounter Progress Notes * Charlotte English RN - 02/04/2021 12:48 PM CST Spoke with patient and completed chart prep. NG FLUSHER * Charlotte English RN - 02/02/2021 4:45 PM CST Please advise, do you need to see patient, if yes, okay for VV? NG FLUSHER documented in this encounter Plan of Treatment Not on file documented as of this encounter Visit Diagnoses Not on filedocumented in this encounter Additional Health Concerns Infection Onset Date Last Indicated Resolved Time COVID-19 Rule Out 09/28/2023 09/28/2023 09/28/2023 3:21 PM CDT COVID-19 Rule Out 04/17/2024 04/17/2024 04/17/2024 12:48 PM CASING FLUSHER Assessment Noted Time PHQ-9 Depression Total Score: 5 04/04/19 20 9:23 AM CASING FLUSHER documented as of this encounter Care Teams Stock Counter Relationship Specialty Start Date End Date Liat Arredondo FNP-BC PCP - General Nurse Practitioner Family 04/04/1901/31/23 Kelsey Lopez NP [address] [facility] [address] [place] [address] PCP - General NURSE PRACTITIONER 09/28/23 documented as of this encounter
--- OUTSIDE RECORDS SUMMARY | 2024-06-14 09:33 | XMS_ITS | Encounter Summary ---
Author Organization [facility] Address [address] [place] [address] Care Team Providers Care Mail Sorter And Delivery Name Role Phone Liat Arredondo [facility] Primary Care Provider + Kelsey Lopez NP Primary Care Provider [phone] Encounter Details Date Type Department Care Team (Late st Contact Info) Description 09/23/[address] 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
--- OUTSIDE RECORDS SUMMARY | 2024-06-14 09:33 | XMS_ITS | Encounter Summary ---
Author Organization [facility] Address [address] [place] [address] Care Team Providers Care Block Splitter Operator Name Role Phone Kelsey Lopez NP Primary Care Provider [phone] Encounter Details Date Type Department Care Team (Late st Contact Info) Description 04/05/2024 MyCRevizert Message Enc [facility] Medical Group [facility] [place] 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 Not on file Not on file documented as of this encounter Plan of Treatment Not on file documented as of this encounter Visit Diagnoses Not on filedocumented in this encounter Additional Health Concerns Infection Onset Date Last Indicated Resolved Time COVID-19 Rule Out 04/17/2024 04/17/2024 04/17/2024 12:48 PM NEWS VIDEO EDITOR Assessment Noted Time PHQ-9 Depression Total Score: 14 025 11:11 AM NEWS VIDEO EDITOR documented as of this encounter Care Teams Block Splitter Operator Relationship Specialty Start Date End Date Kelsey Lopez, SURGICAL SCRUB TECHNOLOGIST [address] [facility] [address] [place] [address] PCP - General NURSE PRACTITIONER 09/28/23 documented as of this encounter
--- OUTSIDE RECORDS SUMMARY | 2024-06-14 09:33 | XMS_ITS | Encounter Summary ---
Author Organization [facility] Address [address] [place] [address] Care Team Providers Care Laboratory Tester Name Role Phone Liat Arredondo [facility] Primary Care Provider + Kelsey Lopez NP Primary Care Provider [phone] Encounter Details Date Type Department Care Team (Late st Contact Info) Description 05/24/2022 MyCForrstt Message Enc [facility] Medical Group Family & Internal Medicine [address] [address]ondo [address] [phone] Cold meds Social History Tobacco [...] Sex Assigned at Female 03/22/2024 8:36 AM INDUSTRIAL HYGIENE MANAGER Legal Sex Female 8:06 AM CDT Gender Identity Female 03/22/2024 8:36 AM INDUSTRIAL HYGIENE MANAGER Sexual Orientation Straight 04/17/2024 10 :06 AM INDUSTRIAL HYGIENE MANAGER 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 Not on file Not on file documented as of this encounter Plan of Treatment Not on file documented as of this encounter Visit Diagnoses Not on filedocumented in this encounter Additional Health Concerns Infection Onset Date Last Indicated Resolved Time COVID-19 Rule Out 09/28/2023 09/28/2023 09/28/2023 3:21 PM CDT COVID-19 Rule Out 04/17/2024 04/17/2024 04/17/2024 12:48 PM INDUSTRIAL HYGIENE MANAGER Assessment Noted Time PHQ-9 Depression Total Score: 5 04/04/19 20 9:23 AM INDUSTRIAL HYGIENE MANAGER documented as of this encounter Care Teams Laboratory Tester Relationship Specialty Start Date End Date Liat Arredondo FNP-BC PCP - General Nurse Practitioner Family 04/04/1901/31/23 Kelsey Lopez, MACHINE PAN GREASER [address] [facility] [address] [place] [address] PCP - General NURSE PRACTITIONER 09/28/23 documented as of this encounter
--- OUTSIDE RECORDS SUMMARY | 2024-06-14 09:33 | XMS_ITS | Clinical Summary ---
Author Organization [facility] Address [address] [place] [phone] Phone Care Team Providers Care Traffic Inspector Name Role Phone Unavailable Primary Care Provider Unavailabl e Allergies No known active allergies Medications vit-iron fumarate-fa (CARSON ) 28 mg iron- 800 mcg Tablet Take 1 Tablet by mouth daily. Active FLUoxetine (PROzac) 20 mg tablet Take 20 mg by mouth daily. Active buPROPion HCL (WELLBUTRIN XL) 150 mg Extended Release 24 hour tablet Take 150 mg by mouth daily petroleum engineer. Active Active Problems Problem Noted Date Diagnosed [...] often do you attend chur ch or worship services? 1 to 4 times per year 08/22/2019 Do you belong to any clubs o r organizations such as restorationism groups, unions, fraternal or athletic groups, or [...] patient's age to complete this topic Insurance [facility] [id number]
--- OUTSIDE RECORDS SUMMARY | 2024-06-14 09:33 | XMS_ITS | Clinical Summary ---
Author Organization [facility] Address [address] [place] [address] Care Team Providers Care Charge Machine Operator Name Role Phone Jessica, Kelsey Pino ORANGE PICKER Primary Care Provider Allergies Active Allergy Reactions [...] daily. 16 g 1 09/24/19 22 Active dicyclomine (BENTYL) 20 MG tabletIndications: Abdominal cramping Take 1 tablet (20 mg total) by mouth every 6 (six) hours as needed (abdominal cramping). 40 tablet 06/11/19 23 Active SUMAtriptan (IMITREX) 25 MG tabletIndications: TERESSA [...] daily. 30 capsule 2 05/16/19 25 Active ubrogepant (UBRELVY) 100 MG tabletIndications: Migraine without aura and without status migrainosus, not intractable Take 1 tab at migraine onset, may repeat dose in 2 hours if needed. Max of 2 tablets (200 mg) in 24 hours 16 tablet 1 05/16/19 25 Active acetaminophen-code ine (TYLENOL #3) 300-30 MG tabletIndications: Acute Pain < 7 Day Supply Take 1 tablet by mouth every 6 (six) hours as needed for Pain. Indications : Acute Pain < 7 Day Supply 15 tablet 06/13/19 25 Active hydroCHLOROthiazid e (HYDRODIURIL) 50 MG tabletIndications: Dependent edema Take 1/2 tablet (25 mg) to 1 tablet (50 mg) daily as needed for swelling 90 tablet 3 09/24/19 22 025 Discontinued hydrOXYzine (ATARAX) 10 MG tabletIndications: TERESSA (generalized anxiety disorder) TAKE 1 TABLET(10 MG) BY MOUTH THREE TIMES DAILY NEEDED FOR ANXIETY 60 tablet 1 02/28/19 25 025 Discontinued ALPRAZolam (XANAX) 0.25 MG tabletIndications: TERESSA (generalized anxiety disorder) Take 1 tablet (0.25 mg total) by mouth 2 (two) times daily as needed for Anxiety. 60 tablet 03/22/19 25 025 Discontinued FLUoxetine (PROZAC) 20 MG capsuleIndications :TERESSA (generalized anxiety disorder),Moderate episode of recurrent major depressive disorder (CMS/HCC) Take 1 capsule (20 mg total) by mouth daily. 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 [facility] [address] [place] [address] Kelsey Lopez, ORANGE PICKER Medication Check 06/12/2024 MyChart Message Enc [place] [address] [facility] [address] [place] [address] Kelsey Lopez, ORANGE PICKER telehealth 06/12/2024 Travel 05/15/2024 11:00 AM CDT Telemedicine [place] [address] [facility] [address] [place] [address] Kelsey Lopez, ORANGE PICKER Medication Check 05/15/2024 Travel 04/20/2024 MyChart Message Enc [place] [address] [facility] [address] [place] [address] Kelsey Lopez, ORANGE PICKER Bubroprion 04/17/2024 9:40 AM VESSEL CREW MEMBER Office Visit [place] [address] [facility] [address] [place] [address] Kelsey Lopez, ORANGE PICKER Headache; Congestion 04/17/2024 Travel 04/10/2024 Scan [facility] Scanned, [facility] 04/05/2024 MyChart Message Enc [facility] [address] [facility] [address] [place] [address] Kelsey Lopez, ORANGE PICKER anxiety 04/05/2024 Telephone [place] [address] [facility] [address] [place] [address] Kelsey Lopez, ORANGE PICKER Medication; Question 03/25/2024 Telephone [place] [address] [place] [address] Kelsey Lopez, ORANGE PICKER Record Request 03/22/2024 8:20 AM VESSEL CREW MEMBER Office Visit [facility] Medical Group Multispecialty Care - [place] 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 Not on file Not on file Last Filed Vital Signs Vital Sign Reading Time Taken Comments Blood Pressure 114/79 04/17/2024 10:06 AM VESSEL CREW MEMBER Pulse 78 04/17/2024 10:06 AM VESSEL CREW MEMBER Temperature 36.9 C (98.4 F) 04/17/2024 10:06 AM VESSEL CREW MEMBER Respiratory Rate 18 04/17/2024 10:06 AM VESSEL CREW MEMBER Oxygen Saturation 99% 04/17/2024 10:06 AM VESSEL CREW MEMBER Inhaled Oxygen Concentration - - Weight 65.8 [...] (2 - Td or Tdap) 06/28/2032 06/28/2022 RSV Immunization or 60+ Years (1 - 1-dose 75+ series) 2064 Hepatitis C Completed 03/22/2024 PHQ-2 (Physician [place]) Completed 04/17/2024 HPV Vaccines Aged Out No [...] CBC W/DIFF AUTOMATED Routine 03/22/2024 9:27 AM VESSEL CREW MEMBER Annual physical exam COMPREHENSIVE METABOLIC PANEL Routine 03/22/2024 9:27 AM VESSEL CREW MEMBER Annual physical exam LIPID PANEL Routine 03/22/2024 9:27 AM VESSEL CREW MEMBER Annual physical exam TSH W/REFLEX Routine 03/22/2024 9:27 AM VESSEL CREW MEMBER Annual physical exam VITAMIN D, 25 OH Routine 03/22/2024 9:27 AM VESSEL CREW MEMBER Vitamin D deficiency URINALYSIS, AUTO, COMPLETE Routine 03/22/2024 9:27 AM VESSEL CREW MEMBER Annual physical exam HEPATITIS C ANTIBODY Routine 03/22/2024 9:27 AM VESSEL CREW MEMBER Need for hepatitis C screening test VITAMIN B-12 Routine 03/22/2024 9:27 AM VESSEL CREW MEMBER Encounter for vitamin deficiency screening OUTSIDE CYTOPATH CERV/VAG INTERPRET (PAP) 04/13/2022 from Last 3 Months or Most Recently Relevant to Health Maintenance Results * CORONAVIRUS (COVID-19) INFLUENZA A & B ANTIGEN IA PANEL (04/17/2024) CORONAVIRUS ANTIGEN IA NEGATIVE NEGATIVE [address], [place] INFLUENZA A NEGATIVE NEGATIVE MG[address], [place] INFLUENZA B NEGATIVE NEGATIVE [address], [place] Internal Control: VALID VALID [address] [place] NASAL STRUCTURE / Unknown 04/17/2024 us Kelsey Lopez NP MICROBIOLOGY - GENERAL ORDE RABLES Final Result [address], [place] [address] [facility] [address] [place] [address], [place] [phone] * TSH W/REFLEX (03/22/2024 9:27 AM VESSEL CREW MEMBER) TSH 0.958 0.358 - 3.740 uIU/ML 03/22/2024 4:19 PM VESSEL CREW MEMBER [facility] 03/22/2024 9:27 AM VESSEL CREW MEMBER us Kelsey Lopez NP LABORATORY Final Resul t Performing Organization Address City/[facility]/ZIP Co de Phone Number [facility] [address] [place] [address], [place] [phone] * URINALYSIS (03/22/2024 9:27 AM VESSEL CREW MEMBER) COLOR (U) YELLOW 03/22/2024 3:18 PM VESSEL CREW MEMBER [facility] TRANSPARENCY CLEAR CLEAR 03/22/2024 3:18 PM VESSEL CREW MEMBER [facility] SPECIFIC GRAVITY (U) 1.015 1.003 - 1.040 03/22/2024 3:18 PM VESSEL CREW MEMBER [facility] U PH 8.5 5.0 - 9.0 03/22/2024 3:18 PM VESSEL CREW MEMBER [facility] PROTEIN RANDOM (U) NEGATIVE NEGATIVE 03/22/2024 3:18 PM VESSEL CREW MEMBER [facility] GLUCOSE (U) NEGATIVE NEGATIVE 03/22/2024 3:18 PM VESSEL CREW MEMBER [facility] KETONES MG/DL (U) NEGATIVE NEGATIVE 03/22/2024 3:18 PM VESSEL CREW MEMBER [facility] BILIRUBIN (U) NEGATIVE NEGATIVE 03/22/2024 3:18 PM VESSEL CREW MEMBER [facility] BLOOD (U) NEGATIVE NEGATIVE 03/22/2024 3:18 PM VESSEL CREW MEMBER [facility] UROBILINOGEN 0.2 0.0 - 2.0 EU/DL 03/22/2024 3:18 PM VESSEL CREW MEMBER [facility] NITRITES NEGATIVE NEGATIVE 03/22/2024 3:18 PM VESSEL CREW MEMBER [facility] LEUKOCYTES (U) NEGATIVE NEGATIVE 03/22/2024 3:18 PM VESSEL CREW MEMBER [facility] RBC/HPF 0-3 0 - 3 /HPF 03/22/2024 3:18 PM VESSEL CREW MEMBER [facility] WBC/HPF 0-3 0 - 3 /HPF 03/22/2024 3:18 PM VESSEL CREW MEMBER [facility] EPI/HPF 4-9 /HPF 03/22/2024 3:18 PM VESSEL CREW MEMBER [facility] BACTERIA (U) NONE SEEN NONE SEEN 03/22/2024 3:18 PM VESSEL CREW MEMBER [facility] URINE SPECIMEN OBTAINED BY CLEAN CATCH PROCEDURE / Unknown 03/22/2024 9:27 AM VESSEL CREW MEMBER us Kelsey Lopez NP URINE ORDERABLES Final Resu lt Performing Organization Address [facility]/ZIP Co de Phone Number [facility] [address] [place] [address], * VITAMIN B-12 (03/22/2024 9:27 AM VESSEL CREW MEMBER) VITAMIN B12 S/P/B 687 193 - 986 PG/ML 03/22/2024 4:19 PM VESSEL CREW MEMBER [facility] 03/22/2024 9:27 AM VESSEL CREW MEMBER us Kelsey Lopez NP LABORATORY Final Resul t Performing Organization Address City/[facility]/ZIP Co de Phone Number [facility] [address] [place] [address], [place] [phone] * (ABNORMAL) COMPREHENSIVE METABOLIC PANEL (03/22/2024 9:27 AM VESSEL CREW MEMBER) [facility] SODIUM S/P/B 139 136 - 145 MMOL/L 03/22/2024 4:19 PM [facility] POTASSIUM S/P/B 4.7 3.5 - 5.1 MMOL/L 03/22/2024 4:19 PM VESSEL CREW MEMBER [facility] CHLORIDE S/P/B 104 98 - 107 MMOL/L 03/22/2024 4:19 PM [facility] CO2 27.5 21 - 32 MMOL/L 03/22/2024 4:19 PM VESSEL CREW MEMBER [facility] GLUCOSE 100(H) 70 - 99 MG/DL 03/22/2024 4:19 PM [facility] BUN 11 7 - 18 MG/DL 03/22/2024 4:19 PM VESSEL CREW MEMBER [facility] CREATININE S/P/B 0.82 0.55 - 1.02 MG/DL 03/22/2024 4:19 PM [facility] CALCIUM S/P/B 8.9 8.4 - 10.5 MG/DL 03/22/2024 4:19 PM [facility] BILIRUBIN TOTAL S/P/B 0.4 0.2 - 1.0 MG/DL 03/22/2024 4:19 PM [facility] ALKALINE PHOSPHATASE S/P/B 47 37 - 98 U/L 03/22/2024 4:19 PM VESSEL CREW MEMBER [facility] AST 15 15 - 37 U/L 03/22/2024 4:19 PM [facility] ALT 23 14 - 59 U/L 03/22/2024 4:19 PM [facility] TOTAL PROTEIN S/P/B 6.5 6.4 - 8.2 G/DL 03/22/2024 4:19 PM VESSEL CREW MEMBER [facility] JANE, [place] ALBUMIN S/P/B 3.9 3.4 - 5.0 G/DL 03/22/2024 4:19 PM VESSEL CREW MEMBER [facility] JANE [place] ANION GAP 7.5 5 - 15 MMOL/L 03/22/2024 4:19 PM VESSEL CREW MEMBER [facility] [place] Comment:REFERENCE RANGE NOT ESTABLISHED OSMOLALITY (CALC) 287 MOSM/KG 025 4:19 PM VESSEL CREW MEMBER [facility] [place] Comment:REFERENCE RANGE NOT ESTABLISHED GFR ESTIMATE >90 >90 ML/MIN/1. 73 M2 03/22/2024 4:19 PM VESSEL CREW MEMBER [facility] [place] GFR NOTES GFR REFERENCE S: 03/22/2024 4:19 PM [facility] [place] Comment: THE ESTIMATED GFR IS CALCULATED USING [...] FAILURE: <15 ml/min/1.73 m2 03/22/2024 9:27 AM VESSEL CREW MEMBER us Kelsey Lopez NP LABORATORY Final Resul t [facility] [place] [address] [facility] [place] [address], * LIPID PANEL (03/22/2024 9:27 AM VESSEL CREW MEMBER) CHOLESTEROL 184 <200 MG/DL 03/22/2024 4:19 PM VESSEL CREW MEMBER [facility] [place] TRIGLYCERIDES 29 <150 MG/DL 03/22/2024 4:19 PM VESSEL CREW MEMBER [facility] HDL 92 >40 MG/DL 03/22/2024 4:19 PM VESSEL CREW MEMBER [facility] LDL-C 86 <100 MG/DL 03/22/2024 4:19 PM VESSEL CREW MEMBER [facility] VLDL CALCULATION 6 5 - 28 MG/DL 03/22/2024 4:19 PM [facility] CHOL/HDL RATIO 2.0 0.0 - 4.0 03/22/2024 4:19 PM VESSEL CREW MEMBER [facility] LDL/HDL 0.9 0.41 - 2.13 03/22/2024 4:19 PM [facility] NON HDL CHOLESTEROL 92 <140 MG/DL 03/22/2024 4:19 PM VESSEL CREW MEMBER [facility] 03/22/2024 9:27 AM VESSEL CREW MEMBER Kelsey Lopez NP LABORATORY Final Resul t Performing Organization Address City/[facility]/ZIP Co de Phone Number [facility] [address] [place] [address], [place] [phone] * HEPATITIS C ANTIBODY (03/22/2024 9:27 AM VESSEL CREW MEMBER) HEPATITIS C AB NON-REACTI VE NON-REACT BARRETT 03/22/2024 7:18 PM VESSEL CREW MEMBER [facility] Comment: ANTIBODIES TO HCV NOT DETECTED. DOES NOT EXCLUDE THE POSSIBILITY OF EXPOSURE TO HCV. 03/22/2024 9:27 AM VESSEL CREW MEMBER us Kelsey Lopez NP LABORATORY Final Resul t [facility] [address] [place] [address], [place] [phone] [id number] * (ABNORMAL) CBC W/DIFF AUTOMATED (03/22/2024 9:27 AM VESSEL CREW MEMBER) [facility] WBC 5.02 4.00 - 10.80 x10'3/uL 03/22/2024 2:42 PM [facility] RBC 4.33 4.10 - 5.40 x10'6/uL 03/22/2024 2:42 PM [facility] HGB 13.5 12.0 - 16.0 G/DL 03/22/2024 2:42 PM [facility] HCT 41.2 36.0 - 47.0 % 03/22/2024 2:42 PM [facility] MCV 95.2 78.0 - 100.0 FL 03/22/2024 2:42 PM [facility] MCH 31.2(H) 27.0 - 31.0 PG 03/22/2024 2:42 PM [facility] MCHC 32.8(L) 33.0 - 36.0 G/DL 03/22/2024 2:42 PM [facility] RDW 12.4 11.5 - 14.5 % 03/22/2024 2:42 PM [facility] PLT 237 150 - 350 x10'3/uL 03/22/2024 2:42 PM [facility] MPV 9.4 7.4 - 10.4 FL 03/22/2024 2:42 PM [facility] DIFFERENTIAL TYPE AUTOMATED DIFFERENTIAL 03/22/2024 2:43 PM [facility] NEUTROPHILS % 62.1 % 03/22/2024 2:43 PM [facility] LYMPHOCYTES % 28.5 % 03/22/2024 2:43 PM [facility] MONOCYTES % 7.4 % 03/22/2024 2:43 PM [facility] EOSINOPHILS % 1.4 % 03/22/2024 2:43 PM [facility] BASOPHILS % 0.4 % 03/22/2024 2:43 PM VESSEL CREW MEMBER [facility] IMMATURE GRANS % 0.2 % 03/22/2024 2:43 PM [facility] ABS. NEUTROPHILS 3.12 1.60 - 8.30 x10'3/uL 03/22/2024 2:43 PM [facility] ABS. LYMPHOCYTES 1.43 0.80 - 4.70 x10'3/uL 03/22/2024 2:43 PM VESSEL CREW MEMBER [facility] ABS. MONOCYTES 0.37 0.00 - 1.50 x10'3/uL 03/22/2024 2:43 PM VESSEL CREW MEMBER [facility] ABS. EOSINOPHILS 0.07 0.00 - 0.40 x10'3/uL 03/22/2024 2:43 PM VESSEL CREW MEMBER [facility] ABS. BASOPHILS 0.02 0.00 - 0.20 x10'3/uL 03/22/2024 2:43 PM [facility] ABS. IMMATURE GRANULOCYTES 0.01 0.00 - 0.03 x10'3/uL 03/22/2024 2:43 PM VESSEL CREW MEMBER [facility] 03/22/2024 9:27 AM VESSEL CREW MEMBER us Kelsey Lopez NP LABORATORY Final Resul t [facility] [address] [place] [address], * VITAMIN D, 25 OH (03/22/2024 9:27 AM VESSEL CREW MEMBER) VITAMIN D 25 HYDROXY TOTAL S/P/B 33.4 30 - 100 NG/ML 03/22/2024 4:19 PM VESSEL CREW MEMBER [facility] Comment: DEFICIENT <20 INSUFFICIENT 20-30 SUFFICIENT 30-100 03/22/2024 9:27 AM VESSEL CREW MEMBER Kelsey Lopez NP LABORATORY Final Resul t [facility] [place] [address] [facility] [place] [address], [place] [phone] * PAP SMEAR WITH HPV (04/13/2022) 04/13/2022 us [facility] Scanned SCANNING Final Resu lt from Last 3 Months or Most Recently Relevant to Health Maintenance Insurance [facility] Care Teams Charge Machine Operator Relationship Specialty Start Date End Date Kelsey Lopez, JACQUI [address] [place] [address] PCP - General NURSE PRACTITIONER 09/28/23
--- OUTSIDE RECORDS SUMMARY | 2024-06-14 09:33 | XMS_ITS | Clinical Summary ---
Author Organization [facility] Care Team Providers Care Plumbing Engineering Draftsperson Name Role Phone Unavailable Primary Care Provider [...]
--- OUTSIDE RECORDS SUMMARY | 2024-06-14 09:33 | XMS_ITS | Encounter Summary ---
Author Organization [facility] Address [address] [place] [address] Care Team Providers Care Debubblizer Name Role Phone Liat Arredondo [facility] Primary Care Provider + Kelsey Lopez NP Primary Care Provider [phone] Encounter Details Date Type Department Care Team (Late st Contact Info) Description 09/20/2021 MyCBioMarker Strategiest Message Enc [facility] Medical Group Family & Internal Medicine [address] [address] Liat Arredondo [address] [address] Sick Social History Tobacco Use [...] Sex Assigned at Female 03/22/2024 8:36 AM MANAGER ENGLISH Legal Sex Female 8:06 AM CDT Gender Identity Female 03/22/2024 8:36 AM MANAGER ENGLISH Sexual Orientation Straight 04/17/2024 10 :06 AM MANAGER ENGLISH 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
== END 2024-06-14 09:30 | disposition home or self-care (01) ==
LOC: ANHLAB 09:30
PROVIDERS: PCP Nurse Practitioner; Visit Provider Obstetrics & Gynecology
DX: O20.0 Threatened abortion (principal); Z3A.00 Weeks of gestation of pregnancy not specified
CPT/HCPCS: 36415; 84702

== ENCOUNTER 2024-09-07 01:09 | Emergency (ER) | payer BC, SELFPAY ==
--- OUTSIDE RECORDS SUMMARY | 2024-09-07 01:11 | XMS_ITS | Encounter Summary ---
Author Organization [facility] Address [address] [place] [address] Care Team Providers Care Tobacco Sizer Name Role Phone Liat Arredondo [facility] Primary Care Provider + Kelsey Lopez NP Primary Care Provider [phone] Encounter Details Date Type Department Care Team (Late st Contact Info) Description 05/24/2022 MyCBlue Crow Mediat Message Enc [facility] Medical Group Family & Internal Medicine [address] [address] Liat Arredondo [address] [address] Cold meds Social History Tobacco [...] Sex Assigned at Female 03/22/2024 8:36 AM BUFFING LINE SET UP WORKER Legal Sex Female 8:06 AM CDT Gender Identity Female 03/22/2024 8:36 AM BUFFING LINE SET UP WORKER Sexual Orientation Straight 04/17/2024 10 :06 AM BUFFING LINE SET UP WORKER 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 Not on file Not on file documented as of this encounter Plan of Treatment Not on file documented as of this encounter Visit Diagnoses Not on filedocumented in this encounter Additional Health Concerns Infection Onset Date Last Indicated Resolved Time COVID-19 Rule Out 09/28/2023 09/28/2023 09/28/2023 3:21 PM CDT COVID-19 Rule Out 04/17/2024 04/17/2024 04/17/2024 12:48 PM BUFFING LINE SET UP WORKER Assessment Noted Time PHQ-9 Depression Total Score: 5 04/04/19 20 9:23 AM BUFFING LINE SET UP WORKER documented as of this encounter Care Teams Tobacco Sizer Relationship Specialty Start Date End Date Liat Arredondo FNP-BC PCP - General Nurse Practitioner Family 04/04/1901/31/23 Kelsey Lopez, FAMILY NURSE PRACTITIONER [address] [facility] [address] [place] [address] PCP - General NURSE PRACTITIONER 09/28/23 documented as of this encounter
--- OUTSIDE RECORDS SUMMARY | 2024-09-07 01:11 | XMS_ITS | Encounter Summary ---
Author Organization [facility] Address [address] [place] [address] Care Team Providers Care Helicopter Pilot Name Role Phone Kelsey Lopez NP Primary Care Provider [phone] Encounter Details Date Type Department Care Team (Late st Contact Info) Description 09/02/[address] [facility] Medical Group Multispecialty Care - [place] 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
--- OUTSIDE RECORDS SUMMARY | 2024-09-07 01:11 | XMS_ITS | Encounter Summary ---
Author Organization [facility] Address [address] [place] [address] Care Team Providers Care Budget Analyst Name Role Phone Liat Arredondo [facility] Primary Care Provider + Kelsey Lopez NP Primary Care Provider [phone] Encounter Details Date Type Department Care Team (Late st Contact Info) Description 09/20/2021 MyCBillingstreett Message Enc [facility] Medical Group Family & Internal Medicine [address] [address] Liat Arredondo [address] [address] Sick Social History Tobacco Use [...] Assigned at Female 03/22/2024 8:36 AM MANAGER INFORMATION Legal Sex Female 8:06 AM CDT Gender Identity Female 03/22/2024 8:36 AM MANAGER INFORMATION Sexual Orientation Straight 04/17/2024 10 :06 AM MANAGER INFORMATION 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
--- OUTSIDE RECORDS SUMMARY | 2024-09-07 01:11 | XMS_ITS | Encounter Summary ---
Author Organization [facility] Address [address] [place] [address] Care Team Providers Care Engineering Mechanic Name Role Phone Liat Arredondo [facility] Primary Care Provider + Kelsey Lopez NP Primary Care Provider [phone] Encounter Details Date Type Department Care Team (Late st Contact Info) Description 02/02/[address] [employer] [address] 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 Unable to assess 02/04/2021 7:11 AM FIXED WING AIRCRAFT FLIGHT ENGINEER documented as of this encounter Progress Notes * Charlotte English RN - 02/04/2021 12:48 PM CST Spoke with patient and completed chart prep. D WING AIRCRAFT FLIGHT ENGINEER * Charlotte English RN - 02/02/2021 4:45 PM CST Please advise, do you need to see patient, if yes, okay for VV? D WING AIRCRAFT FLIGHT ENGINEER documented in this encounter Plan of Treatment Not on file documented as of this encounter Visit Diagnoses Not on filedocumented in this encounter Additional Health Concerns Infection Onset Date Last Indicated Resolved Time COVID-19 Rule Out 09/28/2023 09/28/2023 09/28/2023 3:21 PM CDT COVID-19 Rule Out 04/17/2024 04/17/2024 04/17/2024 12:48 PM FIXED WING AIRCRAFT FLIGHT ENGINEER Assessment Noted Time PHQ-9 Depression Total Score: 5 04/04/19 20 9:23 AM FIXED WING AIRCRAFT FLIGHT ENGINEER documented as of this encounter Care Teams Engineering Mechanic Relationship Specialty Start Date End Date Liat Arredondo FNP-BC PCP - General Nurse Practitioner Family 04/04/1901/31/23 Kelsey Lopez NP [address] [place] [address] PCP - General NURSE PRACTITIONER 09/28/23 documented as of this encounter
--- OUTSIDE RECORDS SUMMARY | 2024-09-07 01:11 | XMS_ITS | Encounter Summary ---
Author Organization [facility] Address [address] [place] [address] Care Team Providers Care Job Coach Name Role Phone Kelsey Lopez NP Primary Care Provider [phone] Encounter Details Date Type Department Care Team (Late st Contact Info) Description 04/05/2024 [employer] Message Enc [facility] Medical Group Multispecialty Care - [place] 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 Not on file Not on file documented as of this encounter Plan of Treatment Not on file documented as of this encounter Visit Diagnoses Not on filedocumented in this encounter Additional Health Concerns Infection Onset Date Last Indicated Resolved Time COVID-19 Rule Out 04/17/2024 04/17/2024 04/17/2024 12:48 PM FINAL ASSEMBLER BOAT Assessment Noted Time PHQ-9 Depression Total Score: 14 025 11:11 AM FINAL ASSEMBLER BOAT documented as of this encounter Care Teams Job Coach Relationship Specialty Start Date End Date Kelsey Lopez, ELECTRICAL ENGINEERING DIRECTOR [address] [facility] [address] [place] [address] PCP - General NURSE PRACTITIONER 09/28/23 documented as of this encounter
--- OUTSIDE RECORDS SUMMARY | 2024-09-07 01:11 | XMS_ITS | Encounter Summary ---
Author Organization [facility] Address [address] [place] [address] Care Team Providers Care Installer Metal Flooring Name Role Phone Liat Arredondo [facility] Primary Care Provider + Kelsey Lopez NP Primary Care Provider [phone] Encounter Details Date Type Department Care Team (Late st Contact Info) Description 08/05/2021 [employer] Message Enc [facility] Medical Group Family & Internal Medicine [address] [address] Izzy 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 Not on file Not on file documented as of this encounter Plan of Treatment Not on file documented as of this encounter Visit Diagnoses Not on filedocumented in this encounter Additional Health Concerns Infection Onset Date Last Indicated Resolved Time COVID-19 Rule Out 09/28/2023 09/28/2023 09/28/2023 3:21 PM CDT COVID-19 Rule Out 04/17/2024 04/17/2024 04/17/2024 12:48 PM STREETS AND BUILDINGS DECORATOR Assessment Noted Time PHQ-9 Depression Total Score: 5 04/04/19 20 9:23 AM STREETS AND BUILDINGS DECORATOR documented as of this encounter Care Teams Installer Metal Flooring Relationship Specialty Start Date End Date Liat Arredondo FNP- PCP - General Nurse Practitioner Family 04/04/1901/31/23 Kelsey Lopez, TRAVEL INFORMATION CENTER SUPERVISOR [address] [facility] [address] [place] [address] PCP - General NURSE PRACTITIONER 09/28/23 documented as of this encounter
--- OUTSIDE RECORDS SUMMARY | 2024-09-07 01:11 | XMS_ITS | Clinical Summary ---
Author Organization [facility] Care Team Providers Care Customer Service Associate Name Role Phone Unavailable Primary Care Provider [...]
--- OUTSIDE RECORDS SUMMARY | 2024-09-07 01:11 | XMS_ITS | Encounter Summary ---
Author Organization [facility] Address [address] [place] [address] Care Team Providers Care Logistics Manager Name Role Phone Liat Arredondo [facility] Primary Care Provider + Kelsey Lopez NP Primary Care Provider [phone] Encounter Details Date Type Department Care Team (Late st Contact Info) Description 05/04/2021 [employer] Message Enc 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 ALL OPERATOR documented in this encounter Plan of Treatment Not on file documented as of this encounter Visit Diagnoses Not on filedocumented in this encounter Additional Health Concerns Infection Onset Date Last Indicated Resolved Time COVID-19 Rule Out 09/28/2023 09/28/2023 09/28/2023 3:21 PM CDT COVID-19 Rule Out 04/17/2024 04/17/2024 04/17/2024 12:48 PM SAVE ALL OPERATOR Assessment Noted Time PHQ-9 Depression Total Score: 5 04/04/19 20 9:23 AM SAVE ALL OPERATOR documented as of this encounter Care Teams Logistics Manager Relationship Specialty Start Date End Date Liat Arredondo FNP- PCP - General Nurse Practitioner Family 04/04/1901/31/23 Kelsey Lopez NP [address] [place] [address] PCP - General NURSE PRACTITIONER 09/28/23 documented as of this encounter
--- OUTSIDE RECORDS SUMMARY | 2024-09-07 01:11 | XMS_ITS | Encounter Summary ---
Author Organization [facility] Address [address] [place] [address] Care Team Providers Care Dog Track Kennel Manager Name Role Phone Liat Arredondo [facility] Primary Care Provider + Kelsey Lopez NP Primary Care Provider [phone] Encounter Details Date Type Department Care Team (Late st Contact Info) Description 09/23/2021 MyCNexterrat Message Enc [facility] Medical Group Family & Internal Medicine [address] [address] Liat Arredodno [address] [address] Insurance Card Social History Tobacco [...] Sex Assigned at Female 03/22/2024 8:36 AM SKEIN YARN DYER HELPER Legal Sex Female 8:06 AM CDT Gender Identity Female 03/22/2024 8:36 AM SKEIN YARN DYER HELPER Sexual Orientation Straight 04/17/2024 10 :06 AM SKEIN YARN DYER HELPER 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
--- OUTSIDE RECORDS SUMMARY | 2024-09-07 01:11 | XMS_ITS | Encounter Summary ---
Author Organization [facility] Address [address] [place] [address] Care Team Providers Care Sustainability Coach Name Role Phone Liat Arredondo [facility] Primary Care Provider + Kelsey Lopez NP Primary Care Provider [phone] Encounter Details Date Type Department Care Team (Late st Contact Info) Description 04/09/2021 MyCEdxactt Message Enc [facility] Medical Group Family & Internal Medicine [address] [address] Liat Arredondo [address] [address] Me again Social History Tobacco [...] Sex Assigned at Female 03/22/2024 8:36 AM CHARGE ACCOUNT CLERK Legal Sex Female 8:06 AM CDT Gender Identity Female 03/22/2024 8:36 AM CHARGE ACCOUNT CLERK Sexual Orientation Straight 04/17/2024 10 :06 AM CHARGE ACCOUNT CLERK 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 Not on file Not on file documented as of this encounter Plan of Treatment Not on file documented as of this encounter Visit Diagnoses Not on filedocumented in this encounter Additional Health Concerns Infection Onset Date Last Indicated Resolved Time COVID-19 Rule Out 09/28/2023 09/28/2023 09/28/2023 3:21 PM CDT COVID-19 Rule Out 04/17/2024 04/17/2024 04/17/2024 12:48 PM CHARGE ACCOUNT CLERK Assessment Noted Time PHQ-9 Depression Total Score: 5 04/04/19 20 9:23 AM CHARGE ACCOUNT CLERK documented as of this encounter Care Teams Sustainability Coach Relationship Specialty Start Date End Date Liat Arredondo FNP-BC PCP - General Nurse Practitioner Family 04/04/1901/31/23 Kelsey Lopez, FILM AND VIDEO EDITOR [address] [place] [address] PCP - General NURSE PRACTITIONER 09/28/23 documented as of this encounter
--- OUTSIDE RECORDS SUMMARY | 2024-09-07 01:11 | XMS_ITS | Clinical Summary ---
Author Organization [facility] Address [address] [place] [phone] Phone Care Team Providers Care Lens Coating Technician Name Role Phone Unavailable Primary Care Provider Unavailabl e Allergies No known active allergies Medications vit-iron fumarate-fa (CARSON ) 28 mg iron- 800 mcg Tablet Take 1 Tablet by mouth daily. Active FLUoxetine (PROzac) 20 mg tablet Take 20 mg by mouth daily. Active buPROPion HCL (WELLBUTRIN XL) 150 mg Extended Release 24 hour tablet Take 150 mg by mouth daily market specialist. Active Active Problems Problem Noted Date Diagnosed [...] often do you attend chur ch or roman catholic services? 1 to 4 times per year 08/22/2019 Do you belong to any clubs o r organizations such as sikhism groups, unions, fraternal or athletic groups, or [...] 2019 PAP SMEAR 2019 INFLUENZA VACCINE (#1) 2024 01/09/2020 HPV VACCINES Aged Out No longer eligi ble based on patient's age to complete this topic Insurance [facility] [id number]
--- OUTSIDE RECORDS SUMMARY | 2024-09-07 01:11 | XMS_ITS | Encounter Summary ---
Author Organization [facility] Address [address] [place] [address] Care Team Providers Care Traffic Police Officer Name Role Phone Kelsey Lopez NP Primary Care Provider [phone] Encounter Details Date Type Department Care Team (Late st Contact Info) Description 06/12/2024 Mobile [employer] Message Enc [facility] Medical Group Multispecialty Care - [place] 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
--- OUTSIDE RECORDS SUMMARY | 2024-09-07 01:11 | XMS_ITS | Encounter Summary ---
Author Organization [facility] Address [address] [place] [address] Care Team Providers Care Associate Curator Name Role Phone Liat Arredondo [facility] Primary Care Provider + Kelsey Lopez NP Primary Care Provider [phone] Encounter Details Date Type Department Care Team (Late st Contact Info) Description 03/07/2022 MyC[employer]t Message Enc [facility] Medical Group Family & Internal Medicine [address] [address] Liat Arredondo [address] [address] [place] Social History Tobacco Use [...] Sex Assigned at Female 03/22/2024 8:36 AM PEDIATRIC NEUROPSYCHOLOGIST Legal Sex Female 8:06 AM CDT Gender Identity Female 03/22/2024 8:36 AM PEDIATRIC NEUROPSYCHOLOGIST Sexual Orientation Straight 04/17/2024 10 :06 AM PEDIATRIC NEUROPSYCHOLOGIST 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 Not on file Not on file documented as of this encounter Plan of Treatment Not on file documented as of this encounter Visit Diagnoses Not on filedocumented in this encounter Additional Health Concerns Infection Onset Date Last Indicated Resolved Time COVID-19 Rule Out 09/28/2023 09/28/2023 09/28/2023 3:21 PM CDT COVID-19 Rule Out 04/17/2024 04/17/2024 04/17/2024 12:48 PM PEDIATRIC NEUROPSYCHOLOGIST Assessment Noted Time PHQ-9 Depression Total Score: 5 04/04/19 20 9:23 AM PEDIATRIC NEUROPSYCHOLOGIST documented as of this encounter Care Teams Associate Curator Relationship Specialty Start Date End Date Liat Arredondo FNP-BC PCP - General Nurse Practitioner Family 04/04/1901/31/23 Kelsey Lopez, EARLY CHILDHOOD EDUCATION INSTRUCTOR [address] [facility] [address] [place] [address] PCP - General NURSE PRACTITIONER 09/28/23 documented as of this encounter
--- OUTSIDE RECORDS SUMMARY | 2024-09-07 01:11 | XMS_ITS | Clinical Summary ---
Author Organization [facility] Address [address] [place] [address] Care Team Providers Care Rock Room Worker Name Role Phone JessicaKelsey CLIENT RELATIONS SPECIALIST Primary Care Provider Allergies Active Allergy Reactions Criticality Noted Date Comments Lactose Intolerance (Gi) GI Upset 02/01/2023 Nickel Rash Low 11/15/2017 Medications 28-0.8 MG tablet Take 1 tablet by mouth daily. Active ondansetron 4 MG disintegrating tabletIndications :Nausea Take 1 tablet (4 mg total) by mouth every 8 (eight) hours as needed for Nausea. 20 tablet 04/09/19 22 Active fluticasone propionate (FLONASE) 50 MCG/ACT nasal sprayIndications: Nasal congestion 1 spray by Nasal route daily. 16 g 1 09/24/19 22 Active dicyclomine (BENTYL) 20 MG tabletIndications :Abdominal cramping Take 1 tablet (20 mg total) by mouth every 6 (six) hours as needed (abdominal cramping). 40 tablet 06/11/19 23 Active SUMAtriptan (IMITREX) 25 MG tabletIndications :TERESSA (generalized anxiety disorder) Take 1 tab by mouth at migraine onset. May repeat dose x 1 if needed. Max of 8 tablets (200 mg) in a 24 hour period. 8 tablet 1 04/17/19 25 Active buPROPion XL (WELLBUTRIN XL) 300 MG 24 hr tabletIndications :TERESSA (generalized anxiety disorder) Take 1 tablet (300 mg total) by mouth daily. 90 tablet 1 04/22/19 25 Active ubrogepant (UBRELVY) 100 MG tabletIndications :Migraine without aura and without status migrainosus, not intractable Take 1 tab at migraine onset, may repeat dose in 2 hours if needed. Max of 2 tablets (200 mg) in 24 hours 16 tablet 1 05/16/19 25 Active venlafaxine XR (EFFEXOR-XR) 75 MG 24 hr capsuleIndication s:TERESSA (generalized anxiety disorder) Take 1 capsule (75 mg total) by mouth daily. 30 capsule 1 08/23/19 25 Active acetaminophen-cod eine (TYLENOL #3) 300-30 MG tabletIndications :Migraine without aura and without status migrainosus, not intractable TAKE 1 TABLET BY MOUTH EVERY 6 HOURS NEEDED FOR PAIN OR ACUTE PAIN 15 tablet 08/27/19 25 Active venlafaxine XR (EFFEXOR-XR) 75 MG 24 hr capsuleIndication s:TERESSA (generalized anxiety disorder) Take 1 capsule (75 mg total) by mouth daily. 30 capsule 2 05/16/19 25 025 Discontinued(R eorder) acetaminophen-cod eine (TYLENOL #3) 300-30 MG tabletIndications :Acute Pain < 7 Day Supply Take 1 tablet by mouth every 6 (six) hours as needed for Pain. 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 03/22/2024 Missed ([facility]) 08/22/2019 TERESSA (generalized anxiety disorder) 04/08/2019 Moderate episode of recurrent major depressive d isorder 04/08/2019 Influenza vaccination declined by patient 2019 Dependent edema 02/21/2018 Medication management 02/21/2018 Comments Yes Encounters Date Type Department Care Team Description 09/02/2024 MyChart Message Enc [facility] Medical Group Multispecialty Care - [place] [address] [facility] [address] [place] [address] Kelsey Lopez, CLIENT RELATIONS SPECIALIST UTI 08/22/2024 Orders Only [facility] [place] [address] [address] [facility] [address] [place] [address] Megan Arredondo LPN 06/28/2024 Telephone [place] [address] [address] [facility] [address] [place] [address] Kelsey Lopez, CLIENT RELATIONS SPECIALIST Medication Request 06/14/2024 Telephone [place] [address] [address] [facility] [address] [place] [address] Kelsey Lopez, CLIENT RELATIONS SPECIALIST Appointment Request 06/12/2024 11:40 AM CDT Telemedicine [place] [address] [address] [facility] [address] [place] [address] Kelsey Lopez, CLIENT RELATIONS SPECIALIST Medication Check 06/12/2024 MyChart Message Enc [place] [address] [address] 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 Not on file Not on file Last Filed Vital Signs Vital Sign Reading Time Taken Comments Blood Pressure 114/79 04/17/2024 10:06 AM MENTAL HEALTH UNIT LEAD PSYCHOLOGIST Pulse 78 04/17/2024 10:06 AM MENTAL HEALTH UNIT LEAD PSYCHOLOGIST Temperature 36.9 C (98.4 F) 04/17/2024 10:06 AM MENTAL HEALTH UNIT LEAD PSYCHOLOGIST Respiratory Rate 18 04/17/2024 10:06 AM MENTAL HEALTH UNIT LEAD PSYCHOLOGIST Oxygen Saturation 99% 04/17/2024 10:06 AM MENTAL HEALTH UNIT LEAD PSYCHOLOGIST Inhaled Oxygen Concentration - - Weight 65.8 kg (145 lb) 06/12/2024 11:43 AM CDT Height 162.6 cm (5' 4) 06/12/2024 11:43 AM CDT Body Mass Index 24.89 06/12/2024 11:43 AM CDT Plan of Treatment Health Maintenance Due Date Last Done Comments Hepatitis B Vaccines (1 of 3 - 19+ 3-dose series) 2008 Cervical Cancer Screening Pap Smear (Age 30 to 64) Every 3 Years 11/06/2016 11/06/2013 COVID-19 Vaccine ( season) 2023 05/05/2020, 04/29/2020, 04/14/2020, Additional history exists Annual Physical 03/22/2025 03/22/2024, 1207/2022, 05/12/2020, Additional history exists Cervical Cancer Screening Pap with HPV Testing (Age 30 to 64) Every 5 Years 04/13/2027 04/13/2022, 08/31/2016 Cervical Cancer Screening with HPV 04/13/2027 DTaP, Tdap and Td Vaccines (2 - Td or Tdap) 06/28/2032 06/28/2022 RSV Immunization or 60+ Years (1 - 1-dose 75+ series) 2064 Hepatitis C Completed 03/22/2024 PHQ-2 (Physician [place]) Completed 04/17/2024 HPV Vaccines Aged Out No [...] Procedure Name Priority Date/Time Associated Diagnosis Comments HEPATITIS C ANTIBODY Routine 03/22/2024 9:27 AM MENTAL HEALTH UNIT LEAD PSYCHOLOGIST Need for hepatitis C screening test OUTSIDE CYTOPATH CERV/VAG INTERPRET (PAP) 04/13/2022 from Last 3 Months or Most Recently Relevant to Health Maintenance Results * HEPATITIS C ANTIBODY (03/22/2024 9:27 AM MENTAL HEALTH UNIT LEAD PSYCHOLOGIST) HEPATITIS C AB NON-REACTI VE NON-REACT BARRETT 03/22/2024 7:18 PM MENTAL HEALTH UNIT LEAD PSYCHOLOGIST [facility] Comment: ANTIBODIES TO HCV NOT DETECTED. DOES NOT EXCLUDE THE POSSIBILITY OF EXPOSURE TO HCV. 03/22/2024 9:27 AM MENTAL HEALTH UNIT LEAD PSYCHOLOGIST us Kelsey Lopez CLIENT RELATIONS SPECIALIST LABORATORY Final Resul t [facility] [address] [place] [address], [id number] * PAP SMEAR WITH HPV (04/13/2022) 04/13/2022 us Doc [facility] Scanned SCANNING Final Resu lt from Last 3 Months or Most Recently Relevant to Health Maintenance Insurance [facility] Care Teams Rock Room Worker Relationship Specialty Start Date End Date Kelsey Lopez CLIENT RELATIONS SPECIALIST [address] [place] [address] PCP - General NURSE PRACTITIONER 09/28/23
--- OUTSIDE RECORDS SUMMARY | 2024-09-07 01:11 | XMS_ITS | Clinical Summary ---
Author Organization [facility] Address [address] [place] [address] Care Team Providers Care Brace End Mainspring Former Name Role Phone Unavailable Primary Care Provider Unavailabl e Source Comments [facility],non-owned Affiliates and Associated Physician Practices is amultiple site organization consisting of ambulatory clinics and hospital sitesin [place], [place], [place] and [place]. This disclosure is being madepursuant to the Care Everywhere program and may not contain all information available regarding this patient. Last updated 17.[facility] [employer] Allergies Active Allergy Reactions Criticality Noted Date [...] Orientation Not on file Plan of Treatment Upcoming Encounters Date Type Department Care Team (Late st Contact Info) Description 10/23/2024 10:30 AM CDT Office Visit [facility] - HALL CLERK [address], [facility] [address] [place] [address] Tej Reyes Che, MD [address] [facility] [address] [place] [address] Health Maintenance Due Date Last Done Comments HIV SCREENING 2004 HEPATITIS C SCREENING 03/13/2007 DTAP/TDAP/TD VACCINES (1 - Tdap) 2008 HEPATITIS B VACCINE (1 of 3 - 19+ 3-dose series) 2008 PAP SMEAR 2010 HPV VACCINE (1 - 3-dose SCDM series) 2016 COVID-19 VACCINE (3 - 2023-2 5 season) 2023 05/05/2020, 04/14/2020 DEPRESSION SCREENING 02/28/2024 INFLUENZA VACCINE (#1) 2024 ZOSTER VACCINE (1 of 2) 2039 HIB VACCINE Aged Out No longer eligi ble based on patient's age to complete this topic MENINGOCOCCAL (Group B) VACCINE SHARED DECISION-MAKING Aged Out No longer eligible based on patient's age to complete this topic MENINGOCOCCAL GROUPS A/C/Y/W VACCINE Aged Out No longer eligible b ased on patient's age to complete this topic PNEUMOCOCCAL VACCINE Aged Out No long er eligible based on patient's age to complete this topic Insurance [facility]
[2024-09-07 01:19] VITALS: BP 150/94; PULSE 88; RESP 18; TEMP 36.7; O2SAT 98
[2024-09-07 01:44] LABS: Hematocrit 33.1 % (37.0-47.0); Hemoglobin 11.0 g/dL (12.0-15.0); Immature Granulocyte Percent A 0.6 % (0-0.5); Lymphocytes Absolute Auto 3.02 K/mm3 (0.9-3.2); Mean Corpuscular HGB Conc 33.2 g/dl (32-36); Mean Corpuscular Hemoglobin 30.9 pg (26-34); Mean Corpuscular Volume 93.0 fl (80-100); Nucleated Red Blood Cells Absolute Auto 0.000 K/mm3 (0.0-0.012); Nucleated Red Blood Cells Perc 0.0 % (0.0-0.2); Platelet Count Result 207 k/mm3 (150-375); Red Blood Count 3.56 M/mm3 (4.2-5.4); White Blood Count 9.4 K/mm3 (4.5-10.0)
[2024-09-07 01:56] LABS: Alanine Aminotransferase 17 U/L (6-35); Albumin Level 3.8 g/dL (3.5-5.1); Alkaline Phosphatase 33 U/L (38-126); Anion Gap 9 mmol/L (4-12); Aspartate Amino Transferase 21 U/L (14-36); Bilirubin,Total 0.2 mg/dL (0.2-1.3); Blood Urea Nitrogen 8 mg/dL (7-17); Calcium 8.6 mg/dL (8.4-10.2); Carbon Dioxide 18 mmol/L (22-30); Chloride 105 mmol/L (98-107); Estimated CRCL calculation 95 ml/min; Estimated Glomerular Filt Rate > 60; Glucose 84 mg/dL (65-110); Magnesium 2.0 mg/dL (1.6-2.3); Potassium 3.8 mmol/L (3.4-5.0); Sodium 132 mmol/L (137-145); Total Protein 6.5 g/dL (6.3-8.2)
[2024-09-07 02:03] LABS: Add Urine Microscopic? YES; Appearance Urine Clear (Clear); Glucose Urine UA Negative (Negative); Leukocyte Esterase Ur Negative LEU/UL (Negative); Nitrate Urine Negative (Negative); Non Pathogenic Casts 0-2; Specific Grav Ur 1.007 (1.001-1.035)
--- NOTE | 2024-09-07 02:06 | ED.FEMALEGU ---
HPI - Female Genitourinary General Chief complaint: Vaginal Bleeding Stated complaint: 18 weeks preg / vaginal bleeding Time Seen by Provider: 09/07/24 01:19 History of Present Illness HPI Narrative: Patient is a 34-year-old female who presents to the emergency department this evening with bright red blood and passing small clots. States that she is approximately 18 weeks and follows up with Dr. Eastman. Patient has already had an ultrasound for confirmed intrauterine with no complications. She is . Patient states that she was at an outdoor concert this evening and felt some mild cramping followed by the bleeding. Estimated due date 02/15/2025. Related Data Home Medications ?Medication ?Instructions ?Recorded ?Confirmed ?Last Taken ?Type vits no.126-ferrous fum 1 tablet PO DAILY 08/17/22 08/29/22 Unknown History 28 mg iron-folic acid 800 mcg tablet (Classic ) acetaminophen 325 mg-codeine 15 mg tablet PO PRN 08/09/24 08/09/24 Unknown History tablet acetylcysteine (bulk) ea miscellaneous 08/09/24 08/09/24 Unknown History bupropion HCl 300 mg 24 hr tablet, 300 mg PO QAM 08/09/24 08/09/24 Unknown History extended release cholecalciferol (vitamin D3) 50 50 mcg PO DAILY 08/09/24 08/09/24 Unknown History mcg (2,000 unit) capsule digestive enzymes 1 cap PO DAILY 08/09/24 08/09/24 Unknown History venlafaxine 75 mg tablet,extended 75 mg PO DAILY 08/09/24 08/09/24 Unknown History release 24 hr Allergies Allergy/AdvReac Type Severity Reaction Status Date / Time nickel Allergy Rash Verified 09/07/24 01:25 No Known Drug Allergies AdvReac Unknown Other Verified 08/09/24 11:27 Review of Systems Review of Systems: All systems are reviewed and are negative unless stated otherwise in the HPI. [facility] Past Medical History Medical History Constipation Anxiety Surgical History Surgical History [place] teeth removed History of bladder surgery sling Family History Family History Grandparent Cerebrovascular accident History of blood clots Congestive heart failure Diabetes mellitus Hypertension Sibling Asthma Other Unknown family medical history Social History Social History Smoking status: Never smoker Alcohol intake: current Alcohol use details: social Substance use: never Substance use type: marijuana Lack of Transportation: No Lack of Food: Never True Current Housing: I Have Housing Concerned About Future Housing: No Difficulty Paying Gas/Electric Bills: No Difficulty Paying for Meds: No Currently Unemployed: No Education: Associate Degree Difficulty w/ Childcare or Family Care: No Spiritual care concerns: No Exam Narrative: General: Alert, awake, afebrile, in no acute distress. HEENT: PERRL, no rhinorrhea, no post nasal drip, oropharynx clear. Neck: Trachea midline, no JVD, no lymphadenopathy. Cardiovascular: Regular rate and rhythm, no murmurs, rubs or gallops, no peripheral edema. Respiratory: Clear to auscultation bilaterally, no tachypnea, no wheezing, no rhonchi, no rubs, no respiratory distress. Abdomen: Soft, nontender, nondistended, no rebound, no guarding, no peritoneal signs. Pelvic: Exam performed with the presence of female nurse wheel fitter revealing no blood noted in the vaginal canal, cervix was visualized and closed. Musculoskeletal: No joint swelling or deformity, normal muscle tone. Skin: No rashes or petechia, no signs of infection. Psychiatric: Alert and oriented, normal behavior and judgment for situation. Neurological: Alert and oriented to person, place, and time. Follows all commands. No focal deficits, speech is clear and fluent. Course Vital Signs Vital signs: Vital Signs Temperature 98.1 F 09/07/24 01:19 Pulse Rate 88 09/07/24 01:19 Respiratory Rate 18 09/07/24 01:19 Blood Pressure 150/94 H 09/07/24 01:19 Pulse Oximetry 98 09/07/24 01:19 Oxygen Delivery Room Air 09/07/24 01:19 Temperature 98.1 F 09/07/24 01:19 Pulse Rate 88 09/07/24 01:19 Respiratory Rate 18 09/07/24 01:19 Blood Pressure 150/94 H 09/07/24 01:19 Pulse Oximetry 98 09/07/24 01:19 Oxygen Delivery Room Air 09/07/24 01:19 MDM - Female Genitourinary MDM Narrative Medical decision making narrative: The patient was evaluated by myself in the emergency department. History is obtained from patient who is an independent historian and physical exam was performed. External medical records were reviewed at this time. IV was established and pertinent tests were ordered. heart tones were obtained and noted to be in the 140s. Laboratory results obtained revealing no acute process. Beta-hCG 41,257. Differential diagnosis considerations include threatened miscarriage versus missed , normal spotting in . Comorbidities impacting this visit include none. I have evaluated and discussed social determinants of health with the patient that could potentially impact subsequent diagnosis and treatment plans. On repeat assessment of the patient, reevaluation revealed that the patient is doing well and is in no acute distress. Patient symptoms have improved since she arrived to our emergency department. Repeat vital signs were all reviewed and noted to be stable. Differential diagnosis and treatment plan were discussed with the patient at bedside. Patient agrees with discussion and after shared medical decision making agrees with discharge. All questions were answered to the patient's satisfaction. Patient will follow up with her OB in 2 days. Patient was provided with strict return precautions and instructed to return to the emergency department if any new or worsening symptoms develop. The patient was discharged in stable condition. Lab Data 09/07/24 01:37 09/07/24 01:37 Labs: Lab Results 09/07/24 09/07/24 Range/Units 01:37 01:52 WBC 9.4 (4.5-10.0) K/mm3 RBC 3.56 L (4.2-5.4) M/mm3 Hgb 11.0 L (12.0-15.0) g/dL Hct 33.1 L (37.0-47.0) % MCV 93.0 (80-100) fl MCH 30.9 (26-34) pg MCHC 33.2 (32-36) g/dl RDW 12.8 (11.5-14.5) % Plt Count 207 (150-375) k/mm3 MPV 8.7 (7.4-10.4) fl Immature Gran % (Auto) 0.6 H (0-0.5) % Neut % (Auto) 61.1 (45.5-73.1) % Lymph % (Auto) 32.2 (18.3-44.2) % [place] % (Auto) 5.1 (2.6-8.5) % Eos % (Auto) 0.5 (0-4.4) % Baso % (Auto) 0.5 (0.2-1.2) % Lymph # (Auto) 3.02 (0.9-3.2) K/mm3 [place] # (Auto) 0.5 (0.1-0.6) K/mm3 Eos # (Auto) 0.1 (0-0.3) K/mm3 Baso # (Auto) 0.1 (0.0-0.1) K/mm3 Abs Immat Gran (auto) 0.06 H (0.00-0.031) K/mm3 Absolute Neuts (auto) 5.7 (1.3-6.7) K/mm3 Absolute Nucleated RBC 0.000 (0.0-0.012) K/mm3 Nucleated RBC % 0.0 (0.0-0.2) % PT 13.6 (11.1-14.7) Seconds INR 1.0 APTT 27.6 (22.3-36.8) Seconds Sodium 132 L (137-145) mmol/L Potassium 3.8 (3.4-5.0) mmol/L Chloride 105 (98-107) mmol/L Carbon Dioxide 18 L (22-30) mmol/L Anion Gap 9 (4-12) mmol/L BUN 8 (7-17) mg/dL Creatinine 0.61 L (0.7-1.0) mg/dL Estim Creat Clear Calc 95 ml/min Estimated GFR > 60 (59 - ) Glucose 84 (65-110) mg/dL Calcium 8.6 (8.4-10.2) mg/dL Magnesium 2.0 (1.6-2.3) mg/dL Total Bilirubin 0.2 (0.2-1.3) mg/dL AST 21 (14-36) U/L ALT 17 (6-35) U/L Alkaline Phosphatase 33 L (38-126) U/L Total Protein 6.5 (6.3-8.2) g/dL Albumin 3.8 (3.5-5.1) g/dL Beta HCG, Quant 51424.00 mIU/ML Urine Color Yellow (Yellow) Urine Appearance Clear (Clear) Urine pH 6.5 (5.0-9.0) Ur Specific [place] 1.007 (1.001-1.035) Urine Protein Negative (Negative) mg/dL Urine Glucose (UA) Negative (Negative) mg/dL Urine Ketones Negative (Negative) mg/dL Ur Blood (Man) 3+ H (Negative) Urine Nitrate Negative (Negative) Urine Bilirubin Negative (Negative) Urine Urobilinogen 0.2 (<2.0) mg/dL Leukocyte Esterase Rfl Negative (Negative) YOVANI/UL Urine RBC 3-5 H (0-2) /hpf Urine WBC 0-5 (0-3) /hpf Ur Squamous Epith Cells Occasional (Few) /hpf Urine Bacteria None seen /hpf Urine Casts 0-2 Blood Type O Positive Antibody Screen Negative Doses of RhIg Required 0 Discharge Plan Discharge Clinical Impression: Threatened miscarriage Patient Disposition: Home Condition: Improved Instructions: Antibiotic Form, Threatened Miscarriage (ED) Additional Instructions: Please follow-up with your OBGYN within the next 2 days. Return to the emergency department if any new or worsening symptoms develop. Patient Language: Senegalese Prescriptions: No Action bupropion HCl 300 mg tablet extended release 24 hr 300 mg PO QAM venlafaxine 75 mg tablet extended release 24hr 75 mg PO DAILY acetaminophen-codeine 325-15 mg tablet PO PRN acetylcysteine (bulk) Powder miscellaneous cholecalciferol (vitamin D3) 50 mcg (2,000 unit) capsule 50 mcg PO DAILY digestive enzymes Capsule 1 cap PO DAILY Rx Instructions: administer with food; swallow whole; do not crush/chew/dissolve/break/cut Classic 28 mg iron- 800 mcg Tablet 1 tablet PO DAILY ondansetron 4 mg tablet,disintegrating 4 mg PO Q8H Qty: 20 0RF Follow-up/Referrals: Hugh Eastman MD [Primary Care Provider] - 2 Days Time of Disposition: 02:06
[2024-09-07 02:13] LABS: INR 1.0; Partial Thromboplastin Time 27.6 Seconds (22.3-36.8); Prothrombin Time 13.6 Seconds (11.1-14.7)
[2024-09-07 02:38] LABS: Beta HCG Quantitative 41257.00 mIU/ML
--- NOTE | 2024-09-07 02:52 | PC.NURSE ---
During her visit, patient stated bleeding was lessening. FHT assessed x3 for patient reassurance. FHR 145-150bpm, + movement per patient
== END 2024-09-07 02:53 | disposition home or self-care (01) ==
PROVIDERS: Emergency Provider Emergency Medicine; PCP Obstetrics & Gynecology
DX: O20.0 Threatened abortion (principal); O99.342 Other mental disorders complicating pregnancy, second trimester; F41.9 Anxiety disorder, unspecified; Z3A.18 18 weeks gestation of pregnancy; Z79.899 Other long term (current) drug therapy
CPT/HCPCS: 36415; 80053; 81001; 83735; 84702; 85025; 85461; 85610; 85730; 86850; 86900; 86901; 99284

== ENCOUNTER 2024-09-14 14:50 | Emergency (ER) | payer BC, SELFPAY ==
[2024-09-14 14:59] VITALS: BP 112/73; PULSE 98; RESP 16; TEMP 36.6; O2SAT 100
--- NOTE | 2024-09-14 15:41 | ED_ITS ---
HPI - URI/Sore Throat General Chief Complaint: Upper Respiratory Infection Stated Complaint: Chest Pain/Body aches/Chills Time Seen by Provider: 09/14/24 15:18 Source: patient and RN notes reviewed Mode of arrival: ambulatory Limitations: no limitations History of Present Illness HPI Narrative: Patient presents today complaining of a 3 day history of cough with body aches, headache, and chills today. Denies shortness of breath, chest pain, sore throat, nasal congestion rhinorrhea. She has tried Mucinex without relief. No history of asthma or COPD. She is currently 19 weeks . Denies abdominal pain, vaginal bleeding or discharge. Related Data Home Medications ?Medication ?Instructions ?Recorded ?Confirmed ?Last Taken ?Type vits no.126-ferrous fum 1 tablet PO DAILY 08/17/22 09/11/24 Unknown History 28 mg iron-folic acid 800 mcg tablet (Classic ) acetaminophen 325 mg-codeine 15 mg tablet PO PRN 08/09/24 09/11/24 Unknown History tablet bupropion HCl 300 mg 24 hr tablet, 300 mg PO QAM 08/09/24 09/11/24 Unknown History extended release cholecalciferol (vitamin D3) 50 50 mcg PO DAILY 08/09/24 09/11/24 Unknown History mcg (2,000 unit) capsule digestive enzymes 1 cap PO DAILY 08/09/24 09/11/24 Unknown History Allergies Allergy/AdvReac Type Severity Reaction Status Date / Time nickel Allergy Rash Verified 09/09/24 11:08 No Known Drug Allergies AdvReac Unknown Other Verified 09/09/24 11:08 [facility] Past Medical History Medical History Constipation Anxiety Surgical History Surgical History [place] teeth removed History of bladder surgery sling Family History Family History Grandparent Cerebrovascular accident History of blood clots Congestive heart failure Diabetes mellitus Hypertension Sibling Asthma Other Unknown family medical history Social History Social History Smoking status: Never smoker Alcohol intake: current Alcohol use details: social Substance use: never Substance use type: marijuana Lack of Transportation: No Lack of Food: Never True Current Housing: I Have Housing Concerned About Future Housing: No Difficulty Paying Gas/Electric Bills: No Difficulty Paying for Meds: No Currently Unemployed: No Education: Associate Degree Difficulty w/ Childcare or Family Care: No Spiritual care concerns: No Comments At time of signature, I have reviewed and agree with nursing past medical, surgical, social and family history unless otherwise noted. Please see nursing chart for further information. There is no relevant family history pertinent to the presenting complaint Exam Narrative: GENERAL: Mildly ill-appearing, well-nourished, and in no acute distress. HEAD: Normocephalic, atraumatic. EYES: EOMI. No redness or drainage. Conjunctivae normal. ENT: Mucous membranes pink and moist. Nares clear. No rhinorrhea. TMs normal bilaterally. Throat normal. Uvula midline. NECK: Normal AROM. Supple. No lymphadenopathy. CHEST: No respiratory distress. Clear to auscultation. Frequent cough HEART: Regular rate and rhythm. No murmur appreciated. EXTREMITIES: Normal range of motion. No edema. SKIN: Warm, dry, no rash. Capillary refill normal. Normal skin turgor. NEURO: No focal deficits. Alert and oriented x3. Gait steady. PSYCH: Normal affect. No signs of depression or anxiety. Course Course Level of Care: Express Care Visit Vital Signs Vital signs: Vital Signs Temperature 97.8 F 09/14/24 14:59 Pulse Rate 98 09/14/24 14:59 Respiratory Rate 16 09/14/24 14:59 Blood Pressure 112/73 09/14/24 14:59 Pulse Oximetry 100 09/14/24 14:59 Temperature 97.8 F 09/14/24 14:59 Pulse Rate 98 09/14/24 14:59 Respiratory Rate 16 09/14/24 14:59 Blood Pressure 112/73 09/14/24 14:59 Pulse Oximetry 100 09/14/24 14:59 Reviewed MDM - URI/Sore Throat MDM Narrative Medical decision making narrative: 34-year-old female patient presents today with a 3 day history of cough with chills, body aches, headache that started today. She denies chest pain, shortness of breath, fever and is currently 19 weeks with 1 2-year-old at home. She has tried Mucinex without relief. She declines testing for COVID- 19 or influenza. She is requesting steroids as she is going on vacation in a few days. We discussed the risks and benefits of taking oral steroids while and going on vacation/being around large groups with decreased immune system. Patient states she has been on them before while and ill and understands these risks. Prescription for prednisone burst sent pharmacy. Vital signs stable. Anticipatory guidance given. ED precautions given. Differential Diagnosis Differential diagnosis: Likely upper respiratory infection, viral infection, bronchitis, influenza and other (COVID-19, pneumonia) Critical Care Time Critical Care Time Critical Care Time: No Discharge Plan Discharge Clinical Impression: Viral syndrome Patient Disposition: Home Condition: Stable Instructions: Viral Syndrome (ED) Additional Instructions: Please take the prednisone as prescribed. Continue [id number] medications such as Mucinex or Delsym. Your symptoms are likely due to a viral illness, which is not treated with antibiotics. Virus symptoms can last for up to 7- 10days. Take Tylenol for pain or fever. Rest and stay hydrated. Follow up with your PCP in 7 days if symptoms are not improving. Go to the ER immediately if you develop shortness of breath, chest pain, difficulty swallowing, or any other concerning symptoms. Patient Language: Hong Konger Prescriptions: New prednisone 20 mg tablet 20 mg PO DAILY 5 Days Qty: 5 0RF No Action bupropion HCl 300 mg tablet extended release 24 hr 300 mg PO QAM acetaminophen-codeine 325-15 mg tablet PO PRN cholecalciferol (vitamin D3) 50 mcg (2,000 unit) capsule 50 mcg PO DAILY digestive enzymes Capsule 1 cap PO DAILY Rx Instructions: administer with food; swallow whole; do not crush/chew/dissolve/break/cut Classic 28 mg iron- 800 mcg Tablet 1 tablet PO DAILY ondansetron 4 mg tablet,disintegrating 4 mg PO Q8H Qty: 20 0RF Follow-up/Referrals: Jessica,Kelsey Pringle APRN [Primary Care Provider] - Time of Disposition: 15:50
== END 2024-09-14 15:56 | disposition home or self-care (01) ==
PROVIDERS: Emergency Provider Nurse Practitioner; PCP Nurse Practitioner
DX: B34.9 Viral infection, unspecified (principal); O26.892 Other specified pregnancy related conditions, second trimester; Z3A.19 19 weeks gestation of pregnancy
CPT/HCPCS: 99213; G0463

== ENCOUNTER 2024-12-11 15:26 | Outpatient (CLI) | payer BC, SELFPAY ==
[2024-12-11 16:56] LABS: Hematocrit 34.9 % (37.0-47.0); Hemoglobin 11.6 g/dL (12.0-15.0); Mean Corpuscular HGB Conc 33.2 g/dl (32-36); Mean Corpuscular Hemoglobin 31.4 pg (26-34); Mean Corpuscular Volume 94.6 fl (80-100); Platelet Count Result 179 k/mm3 (150-375); Red Blood Count 3.69 M/mm3 (4.2-5.4); White Blood Count 10.2 K/mm3 (4.5-10.0)
[2024-12-11 17:21] LABS: Glucose 1 Hour PP 50gm Dose 153 mg/dL
--- OUTSIDE RECORDS SUMMARY | 2024-12-11 17:29 | XMS_ITS | Encounter Summary ---
Author Organization [facility] Address [address] [place] [address] Care Team Providers Care Machine Setter Automatic Name Role Phone Liat Arredondo [facility] Primary Care Provider + Kelsey Lopez NP Primary Care Provider [phone] Encounter Details Date Type Department Care Team (Late st Contact Info) Description 09/20/2021 MyCSelerityt Message Enc 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
--- OUTSIDE RECORDS SUMMARY | 2024-12-11 17:29 | XMS_ITS | Encounter Summary ---
Author Organization [facility] Address [address] [place] [address] Care Team Providers Care Cable Splicer Helper Name Role Phone Kelsey Lopez NP Primary Care Provider [phone] Encounter Details Date Type Department Care Team (Late st Contact Info) Description 06/12/2024 Domot Message Enc [facility] Medical Group Multispecialty Care - [place] 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
--- OUTSIDE RECORDS SUMMARY | 2024-12-11 17:29 | XMS_ITS | Encounter Summary ---
Author Organization [facility] Address [address] [place] [address] Care Team Providers Care Assistant Art Director Name Role Phone Kelsey Lopez NP Primary Care Provider [phone] Encounter Details Date Type Department Care Team (Late st Contact Info) Description 04/05/2024 MyCCruise Comparet Message Enc [facility] Medical Group Multispecialty Care - [place] 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 Not on file Not on file documented as of this encounter Plan of Treatment Not on file documented as of this encounter Visit Diagnoses Not on filedocumented in this encounter Additional Health Concerns Infection Onset Date Last Indicated Resolved Time COVID-19 Rule Out 04/17/2024 04/17/2024 04/17/2024 12:48 PM COMPUGRAPH OPERATOR Assessment Noted Time PHQ-9 Depression Total Score: 14 025 11:11 AM COMPUGRAPH OPERATOR documented as of this encounter Care Teams Assistant Art Director Relationship Specialty Start Date End Date Kelsey Lopez, HAND HOSE CUTTER [address] [facility] [address] [place] [address] PCP - General NURSE PRACTITIONER 09/28/23 documented as of this encounter
--- OUTSIDE RECORDS SUMMARY | 2024-12-11 17:29 | XMS_ITS | Encounter Summary ---
Author Organization [facility] Address [address] [place] [address] Care Team Providers Care Dining Car Server Name Role Phone Liat Arredondo [facility] Primary Care Provider + Kelsey Lopez NP Primary Care Provider [phone] Encounter Details Date Type Department Care Team (Late st Contact Info) Description 09/23/2021 MyCMySalescampt Message Enc [facility] Medical Group Family & Internal Medicine [address] [address] Liat Arredondo [address] [address] Insurance Card Social History Tobacco [...] Sex Assigned at Female 03/22/2024 8:36 AM PERSONAL PROPERTY APPRAISER Legal Sex Female 8:06 AM CDT Gender Identity Female 03/22/2024 8:36 AM PERSONAL PROPERTY APPRAISER Sexual Orientation Straight 04/17/2024 10 :06 AM PERSONAL PROPERTY APPRAISER 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
--- OUTSIDE RECORDS SUMMARY | 2024-12-11 17:30 | XMS_ITS | Clinical Summary ---
Author Organization [facility] Address [address] [place] [phone] Phone Care Team Providers Care Foamite Mixer Name Role Phone Unavailable Primary Care Provider Unavailabl e Allergies No known active allergies Medications vit-iron fumarate-fa (CARSON ) 28 mg iron- 800 mcg Tablet Take 1 Tablet by mouth daily. Active FLUoxetine (PROzac) 20 mg tablet Take 20 mg by mouth daily. Active buPROPion HCL (WELLBUTRIN XL) 150 mg Extended Release 24 hour tablet Take 150 mg by mouth daily custom shoemaker. Active Active Problems Problem Noted Date Diagnosed [...] often do you attend chur ch or pentecostal services? 1 to 4 times per year 08/22/2019 Do you belong to any clubs o r organizations such as synagogue groups, unions, fraternal or athletic groups, or [...] (1 of 3 - 19+ 3-dose series) 02/27 HPV/Cotest (21-29) 2010 HPV VACCINES (1 - 3-dose SCDM series) 2016 CERVICAL CANCER SCREENING 2019 HPV/Cotest (30-65) 2019 PAP SMEAR 2019 INFLUENZA VACCINE (#1) 2024 01/09/[address] [facility] OPTIONS PPO [id number]
--- OUTSIDE RECORDS SUMMARY | 2024-12-11 17:30 | XMS_ITS | Clinical Summary ---
Author Organization [facility] Address [address] [address] Care Team Providers Care Electric Bath Attendant Name Role Phone Kelsey Lopez Pino Primary Care Provider [phone] Source Comments [facility],non-owned Affiliates and Associated Physician Practices is amultiple site organization consisting of ambulatory clinics and hospital sitesin [place], [place], [place] and [place]. This disclosure is being madepursuant to the Care Everywhere program and may not contain all information available regarding this patient. Last updated 17.[facility] Allergies Active Allergy Reactions Criticality Noted Date Comments Nickel Rash Medium 11/15/2017 Medications * Be aware that medications may not be up to date on this document. Alwaysverify current medications with the patient. No known medications Encounters Date Type Department Care Team Description 11/01/2024 1:00 PM CDT - 11/01/2024 11:59 PM CDT Hospital Encounter [facility] Maternal & Care [address] [place] [id number] Violet Del Rio MD Discharge Disposition: Home or Self Care 10/04/2024 9:00 AM CDT - 10/04/2024 11:59 PM CDT Hospital Encounter [facility] Maternal & Care [address] [place] [address] Giuseppe Figueroa MD Discharge Disposition: Home or Self Care from Last 3 Months Social History Tobacco Use Types Packs/Day Years Used Date Smoking Tobacco: Never Assessed Estimated Date of Delivery Comme nts Yes 02/15/2025 Based on last me nstrual period of 05/11/2024 Sex and Gender Information Value Date Recorded Sex Assigned at Not on file Legal Sex Female 4:27 PM CDT Gender Identity Not on file Sexual Orientation Not on file Plan of Treatment Upcoming Encounters Date Type Department Care Team (Late st Contact Info) Description 01/08/2025 2:00 PM CIGAR BANDER Office Visit [facility] - MANAGER TRAINING AND DEVELOPMENT [address] [place] [address] Chloe Del Rio MD [address] [place] [address] Health Maintenance Due Date Last Done Comments HIV SCREENING 2004 DTAP/TDAP/TD VACCINES (1 - Tdap) 2008 HEPATITIS B VACCINE (1 of 3 - 19+ 3-dose series) 2008 HPV VACCINE (1 - 3-dose SCDM series) 2016 PAP SMEAR 11/06/2016 11/06/2013 DEPRESSION SCREENING 02/28/2024 COVID-19 VACCINE (4 - 2024-2 6 season) 2024 05/05/2020, 04/29/2020, 04/14/2020 INFLUENZA VACCINE (#1) 2024 0, 04/12/2019 OB-ONE HOUR GLUCOSE 11/09/2024 OB-TDAP CURRENT 11/16/2024 06/28/2022 OB-RHOGAM INJECTION 11/23/2024 Respiratory Syncytial Virus (RSV) Vaccine Pt: or over 60 yrs (1 - Risk 1-dose series) 12/21/2024 ZOSTER VACCINE (1 of 2) 2039 HEPATITIS C SCREENING Completed 03/22/2024 HIB VACCINE Aged Out No longer eligi [...] Procedure Name Priority Date/Time Associated Diagnosis Comments SONOGRAM - COMPLETE Routine 11/01/2024 1 :04 PM CDT Encounter for anatomic survey (HCC) 20 weeks gestation of (HCC) History of miscarriage, currently ([facility]) SONOGRAM - COMPLETE Routine 10/04/2024 9 :10 AM CDT Encounter for anatomic survey (HCC) 20 weeks gestation of (HCC) History of miscarriage, currently ([facility]) from Last 3 Months Results * Sonogram - Complete (11/01/2024 1:04 PM CDT) Only the most recent of2 resultswithin the time period is included. Linked Results Indication ======== Incomplete anatomy Low lying placenta History ====== OB History 3. Para 1 [id number] 1. miscarriage 2019 2. live 2022. Weight 3,402 g. Sex of child: female. Details: Vaginal delivery Maternal Assessment Physical Exam Height 163 cm, 5 ft 4 in. Weight 73 kg, 162 lb. Initial weight 68 kg, 149 lb. BMI 27.81 kg/m . Initial BMI 25.58 kg/m . Weight gain 6 kg, 13 lb Method ====== Transabdominal ultrasound. View: Sufficient ========= Ashley . Number of fetuses: 1 Dating ====== Date Details Gest. age LEN LMP 05/11/2024 Cycle: regular cycle 24 w + 6 d 02/15/2025 Stated LEN 24 w + 6 d 02/15/2025 Previous U/S 06/26/2024 GA, GA 6 w + 3 d 24 w + 5 d 02/16/2025 U/S 11/01/2024 based upon AC, BPD, Femur, HC 26 w + 0 d 02/07/2025 Assigned dating based on the LMP, selected on 10/04/2024 24 w + 6 d 02/15/2025 General Evaluation Cardiac activity present. FHR 137 bpm. Presentation: cephalic Placenta: Placental site: anterior. Placental opcl-rv-schsrlni os distance 95 mm. No longer low-lying Umbilical cord: Cord vessels: 3 vessel cord - previously documented. Insertion site: normal insertion - previously documented Amniotic fluid: Amount of AF: normal. MVP 5.2 cm Biometry BPD 66.4 mm 26w 5d 94% Hadlock HC 242.0 mm 26w 2d 79% Hadlock AC 212.9 mm 25w 6d 71% Hadlock Femur 45.7 mm 25w 1d 46% Hadlock Humerus 40.9 mm 24w 6d 37% Олег HC / AC 1.14 Weight Calculation: EFW 838 g 75% Hadlock EFW (lb,oz) 1 lb 14 oz EFW by Hadlock ([id number]-KD-[id number]-FL) appropriate Growth Overview Exam date GA BPD (mm) HC (mm) AC (mm) FL (mm) HL (mm) EFW (g) 10/04/2024 20w 6d 51.3 76% 186.9 48% 165.5 68% 34.8 45% 32.3 46% 413 68% 11/01/2024 24w 6d 66.4 94% 242 79% 212.9 71% 45.7 46% 40.9 37% 838 75% Anatomy The following structures appear normal: Heart / Thorax RVOT view. 5-tdrnbo-kxygzih view. Aortic arch view. Bicaval view. Abdomen Stomach. Kidneys. Bladder. Genitals. Extremities / Skeleton Right arm. Right hand. Feet. The following structures were documented previously: Head / Neck Cranium. Lateral ventricles. Choroid plexus. Midline falx. Cavum septi pellucidi. Cerebellum. Cisterna magna. Thalami. Nuchal fold. Face Lips. Profile. Nose. Nasal bone. Orbits. Heart / Thorax 4-chamber view. LVOT view. 3-vessel view. Situs. Ductal arch view. Great vessels. Right lung. Left lung. Diaphragm. Abdomen Cord insertion. Bowel. Spine Cervical spine. Thoracic spine. Lumbar spine. Sacral spine. Extremities / Skeleton Left arm. Left hand. Legs. Maternal Structures Cervix Cervical length 3.70 cm Funneling absent Impression ========= Single, live, intrauterine at 24w6d The size is appropriate Complete anatomical survey with no major malformations seen within the limitations of ultrasound The amniotic fluid volume is normal Low-lying placenta-resolved Comment ======== ultrasound alone cannot detect all structural, genetic, or functional , placental, or maternal abnormalities Follow-up ======== As clinically indicated Coding ====== Diagnoses Z36.3: Encounter for screening for malformations O44.42: Low lying placenta NOS or without hemorrhage Procedures 73256: [place] [address]: US Preg Uterus Transvaginal [facility] [email or web address] PACS Anatomical Region Laterality Modality Other 11/01/2024 1:04 PM CDT us Hugh Eastman MD [facility] ORDERABLES Edited Result - Final from Last 3 Months Insurance ANTHEM Care Teams Electric Bath Attendant Relationship Specialty Start Date End Date Kelsey Lopez [address] [place] [address] PCP - General E Tailer 10/21/24
--- OUTSIDE RECORDS SUMMARY | 2024-12-11 17:30 | XMS_ITS | Encounter Summary ---
Author Organization [facility] Address [address] [place] [address] Care Team Providers Care Nurse Transplant Name Role Phone Kelsey Lopez NP Primary Care Provider [phone] Encounter Details Date Type Department Care Team (Late st Contact Info) Description 09/02/2024 MyChart Message Enc [facility] Medical Group Multispecialty Care - [place] 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
--- OUTSIDE RECORDS SUMMARY | 2024-12-11 17:30 | XMS_ITS | Encounter Summary ---
Author Organization [facility] Address [address] [place] [address] Care Team Providers Care Latent Fingerprint Examiner Name Role Phone Liat Arredondo [facility] Primary Care Provider + Kelsey Lopez NP Primary Care Provider [phone] Encounter Details Date Type Department Care Team (Late st Contact Info) Description 05/24/2022 MyCWheretogett Message Enc [facility] Medical Group Family & Internal Medicine [address] [address] Liat Arredondo [address] [address] Cold meds Social History Tobacco [...] Sex Assigned at Female 03/22/2024 8:36 AM NURSERY MANAGER Legal Sex Female 8:06 AM CDT Gender Identity Female 03/22/2024 8:36 AM NURSERY MANAGER Sexual Orientation Straight 04/17/2024 10 :06 AM NURSERY MANAGER 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 Not on file Not on file documented as of this encounter Plan of Treatment Not on file documented as of this encounter Visit Diagnoses Not on filedocumented in this encounter Additional Health Concerns Infection Onset Date Last Indicated Resolved Time COVID-19 Rule Out 09/28/2023 09/28/2023 09/28/2023 3:21 PM CDT COVID-19 Rule Out 04/17/2024 04/17/2024 04/17/2024 12:48 PM NURSERY MANAGER Assessment Noted Time PHQ-9 Depression Total Score: 5 04/04/19 20 9:23 AM NURSERY MANAGER documented as of this encounter Care Teams Latent Fingerprint Examiner Relationship Specialty Start Date End Date Liat Arredondo FNP-BC PCP - General Nurse Practitioner Family 04/04/1901/31/23 Kelsey Lopez, PROMOTION WRITER [address] [place] [address] PCP - General NURSE PRACTITIONER 09/28/23 documented as of this encounter
--- OUTSIDE RECORDS SUMMARY | 2024-12-11 17:30 | XMS_ITS | Encounter Summary ---
Author Organization [facility] Address [address] [place] [address] Care Team Providers Care Engraver Tender Name Role Phone Liat Arredondo [facility] Primary Care Provider + Kelsey Lopez NP Primary Care Provider [phone] Encounter Details Date Type Department Care Team (Late st Contact Info) Description 04/09/2021 MyCMedTest DXt Message Enc [facility] Medical Group Family & Internal Medicine [address] [address] Liat Arredondo [address] [address] Me again Social History Tobacco [...] Sex Assigned at Female 03/22/2024 8:36 AM COUPON CLERK Legal Sex Female 8:06 AM CDT Gender Identity Female 03/22/2024 8:36 AM COUPON CLERK Sexual Orientation Straight 04/17/2024 10 :06 AM COUPON CLERK 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 Not on file Not on file documented as of this encounter Plan of Treatment Not on file documented as of this encounter Visit Diagnoses Not on filedocumented in this encounter Additional Health Concerns Infection Onset Date Last Indicated Resolved Time COVID-19 Rule Out 09/28/2023 09/28/2023 09/28/2023 3:21 PM CDT COVID-19 Rule Out 04/17/2024 04/17/2024 04/17/2024 12:48 PM COUPON CLERK Assessment Noted Time PHQ-9 Depression Total Score: 5 04/04/19 20 9:23 AM COUPON CLERK documented as of this encounter Care Teams Engraver Tender Relationship Specialty Start Date End Date Liat Arredondo FNP-BC PCP - General Nurse Practitioner Family 04/04/1901/31/23 Kelsey Lopez, POWER STATION OPERATOR [address] [place] [address] PCP - General NURSE PRACTITIONER 09/28/23 documented as of this encounter
--- OUTSIDE RECORDS SUMMARY | 2024-12-11 17:30 | XMS_ITS | Encounter Summary ---
Author Organization [facility] Address [address] [place] [address] Care Team Providers Care Cloth Drier Name Role Phone Liat Arredondo [facility] Primary Care Provider + Kelsey Lopez NP Primary Care Provider [phone] Encounter Details Date Type Department Care Team (Late st Contact Info) Description 05/04/2021 MyCSandy Bottom Drinkt Message Enc [facility] Medical Group Family & Internal Medicine [address] [address] Liat Arredondo [address] [phone] Lab results Social History Tobacco Use Types [...] Sex Assigned at Female 03/22/2024 8:36 AM INSPECTOR METAL CAN Legal Sex Female 8:06 AM CDT Gender Identity Female 03/22/2024 8:36 AM INSPECTOR METAL CAN Sexual Orientation Straight 04/17/2024 10 :06 AM INSPECTOR METAL CAN 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 ECTOR METAL CAN documented in this encounter Plan of Treatment Not on file documented as of this encounter Visit Diagnoses Not on filedocumented in this encounter Additional Health Concerns Infection Onset Date Last Indicated Resolved Time COVID-19 Rule Out 09/28/2023 09/28/2023 09/28/2023 3:21 PM CDT COVID-19 Rule Out 04/17/2024 04/17/2024 04/17/2024 12:48 PM INSPECTOR METAL CAN Assessment Noted Time PHQ-9 Depression Total Score: 5 04/04/19 20 9:23 AM INSPECTOR METAL CAN documented as of this encounter Care Teams Cloth Drier Relationship Specialty Start Date End Date Liat Arredondo FNP- PCP - General Nurse Practitioner Family 04/04/1901/31/23 Kelsey Lopez NP [address] [place] [address] PCP - General NURSE PRACTITIONER 09/28/23 documented as of this encounter
--- OUTSIDE RECORDS SUMMARY | 2024-12-11 17:30 | XMS_ITS | Clinical Summary ---
Author Organization [facility] Address [address] [place] [address] Care Team Providers Care Online Producer Name Role Phone JessicaKelsey CLINIC BUSINESS MANAGER Primary Care Provider Allergies Active Allergy Reactions Criticality Noted Date Comments Lactose Intolerance (Gi) GI Upset 02/01/2023 Nickel Rash Low 11/15/2017 Medications 28-0.8 MG tablet Take 1 tablet by mouth daily. Active fluticasone propionate (FLONASE) 50 MCG/ACT nasal sprayIndications:Na ranulfo congestion 1 spray by Nasal route daily. 16 g 1 2 Active dicyclomine (BENTYL) 20 MG tabletIndications:A bdominal cramping Take 1 tablet (20 mg total) by mouth every 6 (six) hours as needed (abdominal cramping). 40 tablet 3 Active acetaminophen-codei ne (TYLENOL #3) 300-30 MG tabletIndications:M igraine without aura and without status migrainosus, not intractable TAKE 1 TABLET BY MOUTH EVERY 6 HOURS NEEDED FOR PAIN OR ACUTE PAIN 15 tablet 5 Active buPROPion XL (WELLBUTRIN XL) 300 MG 24 hr tabletIndications:G AD (generalized anxiety disorder) Take 1 tablet (300 mg total) by mouth daily. 90 tablet 5 Active ALPRAZolam (XANAX) 0.25 MG tabletIndications:G AD (generalized anxiety disorder) Take 1 tablet (0.25 mg total) by mouth 2 (two) times daily as needed for Anxiety. 60 tablet 5 Active citalopram (CELEXA) 40 MG tabletIndications:G AD (generalized anxiety disorder),Moderate episode of recurrent major depressive disorder (CMS/HCC) Take 1 tablet (40 mg total) by mouth daily. 90 tablet 1 5 Active ondansetron (ZOFRAN-ODT) 4 MG disintegrating tabletIndications:N ausea Take 1 tablet (4 mg total) by mouth every 8 (eight) hours as needed for Nausea. 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 Family history of antiphospholipid syndrome 02/28 Migraine without aura and wi thout status migrainosus, not intractable 03/22/2024 High natural killer cell count determined by uzair w cytometry 03/22/2024 Missed 08/22/2019 TERESSA (generalized anxiety disorder) 04/08/2019 Moderate episode of recurrent major depressive d isorder 04/08/2019 Influenza vaccination declined by patient 2019 Dependent edema 02/21/2018 Medication management 02/21/2018 Comments Yes Encounters Date Type Department Care Team Description 11/06/2024 12:20 PM CDT [facility] [place] [address] [address] [place] [address] Kelsey Lopez, CLINIC BUSINESS MANAGER Anxiety; Medication Check 11/06/2024 Travel 10/17/2024 Orders Only [facility] [place] [address] [facility] [address] [place] [address] Rachele Friedman MA 10/10/2024 Telephone [facility] [place] [address] [facility] [address] [place] [address] Kesley Lopez, CLINIC BUSINESS MANAGER Follow Up Call 10/09/2024 4:40 PM CDT [facility] [address] [place] [address] Kelsey Lopez, CLINIC BUSINESS MANAGER Medication Check 10/09/2024 Travel 10/04/2024 Telephone [facility] Medical Group Multispecialty Care - [address] [place] [address] Kelsey Lopez NP Medication 09/14/2024 Scan [facility] HEALTH INFO SRVCS Scanned, Doc Med Group from Last 3 Months Immunizations Immunization Administration [...] Date Recorded Patient Health Questionnaire-2 Score 3 11/06/2024 Education Answer Date Recorded What is the highest level of school you have completed or the highest degree you have received? 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 Not on file Not on file Last Filed Vital Signs Vital Sign Reading Time Taken Comments Blood Pressure 114/79 04/17/2024 10:06 AM COMMUNITY NURSE Pulse 78 04/17/2024 10:06 AM COMMUNITY NURSE Temperature 36.9 C (98.4 F) 04/17/2024 10:06 AM COMMUNITY NURSE Respiratory Rate 18 04/17/2024 10:06 AM COMMUNITY NURSE Oxygen Saturation 99% 04/17/2024 10:06 AM COMMUNITY NURSE Inhaled Oxygen Concentration - - Weight 65.8 kg (145 lb) 11/06/2024 12:17 PM CDT Height 162.6 cm (5' 4) 11/06/2024 12:17 PM CDT Body Mass Index 24.89 11/06/2024 12:17 PM CDT Plan of Treatment Health Maintenance Due Date Last Done Comments Hepatitis B Vaccines (1 of 3 - 19+ 3-dose series) 2008 HPV Vaccines (1 - 3-dose SCDM series) 2016 Cervical Cancer Screening Pap Smear (Age 30 to 64) Every 3 Years 11/06/2016 11/06/2013 COVID-19 Vaccine ( season) 2024 05/05/2020, 04/29/2020, 04/14/2020, Additional history exists Influenza Adult (#1) 2024 01/09/2020, 04/12/2019, 04/12/2019, Additional history exists Annual Physical 03/22/2025 03/22/2024, [...] 2064 Hepatitis C Completed 03/22/2024 PHQ-2 (Physician [place]) Completed 11/06/2024 Hepatitis A Vaccines Aged Out No long er eligible based [...] HEPATITIS C ANTIBODY Routine 03/22/2024 9:27 AM COMMUNITY NURSE Need for hepatitis C screening test OUTSIDE CYTOPATH CERV/VAG INTERPRET (PAP) 04/13/2022 from Last 3 Months or Most Recently Relevant to Health Maintenance Results * HEPATITIS C ANTIBODY (03/22/2024 9:27 AM COMMUNITY NURSE) HEPATITIS C AB NON-REACTI VE NON-REACT BARRETT 03/22/2024 7:18 PM COMMUNITY NURSE [facility] Comment: ANTIBODIES TO HCV NOT DETECTED. DOES NOT EXCLUDE THE POSSIBILITY OF EXPOSURE TO HCV. 03/22/2024 9:27 AM COMMUNITY NURSE Kelsey Lopez NP LABORATORY Final Resul t [facility] [address] [place] [address], [id number] * PAP SMEAR WITH HPV (04/13/2022) 04/13/2022 us Doc Med Group Scanned SCANNING Final Resu lt from Last 3 Months or Most Recently Relevant to Health Maintenance Insurance [facility] Care Teams Online Producer Relationship Specialty Start Date End Date Kelsey Lopez, CLINIC BUSINESS MANAGER [address] [place] [address] PCP - General NURSE PRACTITIONER 09/28/23
--- OUTSIDE RECORDS SUMMARY | 2024-12-11 17:30 | XMS_ITS | Encounter Summary ---
Author Organization [facility] Address [address] [place] [address] Care Team Providers Care Fuels Engineer Name Role Phone Liat Arredondo [facility] Primary Care Provider + Kelsey Lopez NP Primary Care Provider [phone] Encounter Details Date Type Department Care Team (Late st Contact Info) Description 08/05/2021 Cardpool Message Enc [facility] Medical Group Family & Internal Medicine [address] [address] [facility] Provider Due for routine follow up [...] Sex Assigned at Female 03/22/2024 8:36 AM PRODUCT SAFETY ADMINISTRATOR Legal Sex Female 8:06 AM CDT Gender Identity Female 03/22/2024 8:36 AM PRODUCT SAFETY ADMINISTRATOR Sexual Orientation Straight 04/17/2024 10 :06 AM PRODUCT SAFETY ADMINISTRATOR 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 Not on file Not on file documented as of this encounter Plan of Treatment Not on file documented as of this encounter Visit Diagnoses Not on filedocumented in this encounter Additional Health Concerns Infection Onset Date Last Indicated Resolved Time COVID-19 Rule Out 09/28/2023 09/28/2023 09/28/2023 3:21 PM CDT COVID-19 Rule Out 04/17/2024 04/17/2024 04/17/2024 12:48 PM PRODUCT SAFETY ADMINISTRATOR Assessment Noted Time PHQ-9 Depression Total Score: 5 04/04/19 20 9:23 AM PRODUCT SAFETY ADMINISTRATOR documented as of this encounter Care Teams Fuels Engineer Relationship Specialty Start Date End Date Liat Arredondo FNP- PCP - General Nurse Practitioner Family 04/04/1901/31/23 Kelsey Lopez, RESIDENT INTERN [address] [facility] [address] [place] [address] PCP - General NURSE PRACTITIONER 09/28/23 documented as of this encounter
--- OUTSIDE RECORDS SUMMARY | 2024-12-11 17:30 | XMS_ITS | Clinical Summary ---
Author Organization [facility] Care Team Providers Care Silk Screen Cutter Name Role Phone Unavailable Primary Care Provider [...] 19+ 3-dose series) 2008 Pap Smear 2010 Human Papillomavirus (HPV) Immunization (1 - 3-dose SCDM series) 2016 Cervical Cancer Screening (CCS) 2019 HPV/Cotest 2019 Influenza Immunization (#1) 2024 04/12/2019 SARS-COV-2 Immunization ( - season) 2024 04/29/2020, 04/14/2020 Respiratory Syncytial Virus (RSV) Immunization [...]
--- OUTSIDE RECORDS SUMMARY | 2024-12-11 17:30 | XMS_ITS | Encounter Summary ---
Author Organization [facility] Address [address] [place] [address] Care Team Providers Care Air Duct Mechanic Name Role Phone Liat Arredondo [facility] Primary Care Provider + Kelsey Lopez NP Primary Care Provider [phone] Encounter Details Date Type Department Care Team (Late st Contact Info) Description 02/02/2021 Transavet Message Enc [facility] Medical Group Family & Internal Medicine [address] [address] Liat Arredondo [address] [address] Other Social History Tobacco Use [...] Sex Assigned at Female 03/22/2024 8:36 AM POLYETHYLENE BAG MACHINE OPERATOR Legal Sex Female 8:06 AM CDT Gender Identity Female 03/22/2024 8:36 AM POLYETHYLENE BAG MACHINE OPERATOR Sexual Orientation Straight 04/17/2024 10 :06 AM POLYETHYLENE BAG MACHINE OPERATOR 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 Unable to assess 02/04/2021 7:11 AM POLYETHYLENE BAG MACHINE OPERATOR documented as of this encounter Progress Notes * Charlotte English RN - 02/04/2021 12:48 PM CST Spoke with patient and completed chart prep. ETHYLENE BAG MACHINE OPERATOR * Charlotte English RN - 02/02/2021 4:45 PM CST Please advise, do you need to see patient, if yes, okay for VV? ETHYLENE BAG MACHINE OPERATOR documented in this encounter Plan of Treatment Not on file documented as of this encounter Visit Diagnoses Not on filedocumented in this encounter Additional Health Concerns Infection Onset Date Last Indicated Resolved Time COVID-19 Rule Out 09/28/2023 09/28/2023 09/28/2023 3:21 PM CDT COVID-19 Rule Out 04/17/2024 04/17/2024 04/17/2024 12:48 PM POLYETHYLENE BAG MACHINE OPERATOR Assessment Noted Time PHQ-9 Depression Total Score: 5 04/04/19 20 9:23 AM POLYETHYLENE BAG MACHINE OPERATOR documented as of this encounter Care Teams Air Duct Mechanic Relationship Specialty Start Date End Date Liat Arredondo FNP-BC PCP - General Nurse Practitioner Family 04/04/1901/31/23 Kelsey Lopez NP [address] [facility] [address] [place] [address] PCP - General NURSE PRACTITIONER 09/28/23 documented as of this encounter
--- OUTSIDE RECORDS SUMMARY | 2024-12-11 17:30 | XMS_ITS | Encounter Summary ---
Author Organization [facility] Address [address] [place] [address] Care Team Providers Care Media Senior Recruiter Name Role Phone Liat Arredondo [facility] Primary Care Provider + Kelsey Lopez NP Primary Care Provider [phone] Encounter Details Date Type Department Care Team (Late st Contact Info) Description 03/07/2022 MyCDealer Tiret Message Enc [facility] Medical Group Family & Internal Medicine [address] [address] Liat Arredondo [address] [address] Lucien Social History Tobacco Use [...] Sex Assigned at Female 03/22/2024 8:36 AM HUMAN RESOURCES DEPARTMENT SUPERVISOR Legal Sex Female 8:06 AM CDT Gender Identity Female 03/22/2024 8:36 AM HUMAN RESOURCES DEPARTMENT SUPERVISOR Sexual Orientation Straight 04/17/2024 10 :06 AM HUMAN RESOURCES DEPARTMENT SUPERVISOR 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 on file Not on file Not on file documented as of this encounter Plan of Treatment Not on file documented as of this encounter Visit Diagnoses Not on filedocumented in this encounter Additional Health Concerns Infection Onset Date Last Indicated Resolved Time COVID-19 Rule Out 09/28/2023 09/28/2023 09/28/2023 3:21 PM CDT COVID-19 Rule Out 04/17/2024 04/17/2024 04/17/2024 12:48 PM HUMAN RESOURCES DEPARTMENT SUPERVISOR Assessment Noted Time PHQ-9 Depression Total Score: 5 04/04/19 20 9:23 AM HUMAN RESOURCES DEPARTMENT SUPERVISOR documented as of this encounter Care Teams Media Senior Recruiter Relationship Specialty Start Date End Date Liat Arredondo FNP-BC PCP - General Nurse Practitioner Family 04/04/1901/31/23 Kelsey Lopez, ANIMAL CYTOLOGIST [address] [facility] [address] [place] [address] PCP - General NURSE PRACTITIONER 09/28/23 documented as of this encounter
[2024-12-11 18:02] LABS: HIV 1/2 Ab P24 Ag Result Negative (Negative)
[2024-12-11 18:12] LABS: Syphilis IgG/IgM Antibody Non-Reactive (Nonreactive)
--- NOTE | 2025-01-25 20:21 | WPDANESEPPF ---
Anes - Initial Pre Proc Eval Procedure: c section Date/Time: 01/25/25 20:21 Surgeon: Aracely Bazan APRN Pre Op Diagnosis: 37 week IUP. vaginal bleeding Pre Op Diagnosis: Patient Data Age: 34 Gender: F Height: Weight: 80 kg Allergies Allergy/AdvReac Type Severity Reaction Status Date / Time nickel Allergy Rash Verified 01/21/25 09:47 No Known Drug Allergies AdvReac Unknown Other Verified 01/21/25 09:47 Home Medications ?Medication ?Instructions ?Recorded ?Confirmed ?Type vits no.126-ferrous fum 1 tablet PO DAILY 08/17/22 01/21/25 History 28 mg iron-folic acid 800 mcg tablet (Classic ) acetaminophen 325 mg-codeine 15 mg tablet PO PRN 08/09/24 01/21/25 History tablet bupropion HCl 300 mg 24 hr tablet, 300 mg PO QAM 08/09/24 01/21/25 History extended release cholecalciferol (vitamin D3) 50 50 mcg PO DAILY 08/09/24 01/21/25 History mcg (2,000 unit) capsule digestive enzymes 1 cap PO DAILY 08/09/24 01/21/25 History citalopram 20 mg tablet (Celexa) 20 mg PO DAILY 10/23/24 01/21/25 History venlafaxine 37.5 mg tablet 37.5 mg PO DAILY 10/23/24 01/21/25 History blood sugar diagnostic (OneTouch #50 ea 12/31/24 01/21/25 Rx Verio test strips) blood-glucose meter (OneTouch #1 ea 12/31/24 01/21/25 Rx Verio Flex Meter) lancets 30 gauge (OneTouch Delica #100 ea 12/31/24 01/21/25 Rx Plus Lancet) ondansetron 4 mg disintegrating 4 mg PO Q8H #30 tabs 01/08/25 01/21/25 Rx tablet Patient hx anesthesia problems: none Family hx anesthesia problems: none Results Review: All pre-operative results and documents have been reviewed as part of the pre-operative evaluation. [facility] Past Medical History Medical History Constipation Anxiety Surgical History Surgical History [place] teeth removed History of bladder surgery sling Family History Family History Grandparent Cerebrovascular accident History of blood clots Congestive heart failure Diabetes mellitus Hypertension Sibling Asthma Other Unknown family medical history Social History Social History Smoking status: Never smoker Alcohol intake: current Alcohol use details: social Substance use: never Substance use type: marijuana Lack of Transportation: No Lack of Food: Never True Current Housing: I Have Housing Concerned About Future Housing: No Difficulty Paying Gas/Electric Bills: No Difficulty Paying for Meds: No Currently Unemployed: No Education: Associate Degree Difficulty w/ Childcare or Family Care: No Spiritual care concerns: No Anes - Eval Final PreProcedure Day of Procedure 01/25/25 20:21 Patient weight: normal Heart: regular rate and rhythm Lungs: normal air movement Airway: Mallampati scale class II Neurological: alert and oriented Last oral intake: 2 hours ASA classification: II Emergent: yes Anesthetic plan: proceed Anesthesia type and monitoring: general ETT and regional spinal Results Review: All pre-operative results and documents have been reviewed as part of the pre-operative evaluation. Informed Consent: The patient's anesthetic plan and its attendant risks and benefits were discussed with the patient/family/POA. Questions were solicited and answers provided to the satisfaction of the patient/family/POA.
== END 2024-12-11 15:27 | disposition home or self-care (01) ==
LOC: ANHLAB 15:26
PROVIDERS: PCP Nurse Practitioner; Visit Provider Nurse Practitioner Family
DX: Z34.90 Encounter for supervision of normal pregnancy, unspecified, unspecified trimester (principal)
CPT/HCPCS: 36415; 82947; 85027; 86593; 86703; G0432

== ENCOUNTER 2025-01-25 19:50 | Inpatient (IN) | payer BC, SELFPAY ==
[2025-01-25] VITALS (47 sets, daily range): BP systolic 107–132; BP diastolic 56–83; PULSE 54–141; RESP 13–16; TEMP 36.5; O2SAT 90–100
[2025-01-25] MEDS: ONDANSETRON INJ 4 MG/2 ML VIAL IV PUSH (20:13)
[2025-01-25] MEDS: FAMOTIDINE 20 MG/2 ML VIAL IV PUSH (20:13)
--- OUTSIDE RECORDS SUMMARY | 2025-01-25 20:13 | XMS_ITS | Clinical Summary ---
Author Organization [facility] Address [address] [place] [address] Phone Care Team Providers Care Architectural Superintendent Name Role Phone Unavailable Primary Care Provider Unavailabl e Allergies No known active allergies Medications vit-iron fumarate-fa (CARSON ) 28 mg iron- 800 mcg Tablet Take 1 Tablet by mouth daily. Active FLUoxetine (PROzac) 20 mg tablet Take 20 mg by mouth daily. Active buPROPion HCL (WELLBUTRIN XL) 150 mg Extended Release 24 hour tablet Take 150 mg by mouth daily silver lap machine tender. Active Active Problems Problem Noted Date Diagnosed [...] often do you attend chur ch or oriental orthodox services? 1 to 4 times per year 08/22/2019 Do you belong to any clubs o r organizations such as alevism groups, unions, fraternal or athletic groups, or [...] 2019 INFLUENZA VACCINE (#1) 2024 01/09/2020 Insurance [facility] OPTIONS PPO [id number]
--- OUTSIDE RECORDS SUMMARY | 2025-01-25 20:13 | XMS_ITS | Encounter Summary ---
Author Organization [facility] Address [address] [place] [address] Care Team Providers Care Tip Stretcher Name Role Phone Kelsey Lopez NP Primary Care Provider [phone] Encounter Details Date Type Department Care Team (Late st Contact Info) Description 04/05/2024 MyCThe Beer X-Changet Message Enc [facility] Medical Group Multispecialty Care - [place] 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 Not on file Not on file documented as of this encounter Plan of Treatment Not on file documented as of this encounter Visit Diagnoses Not on filedocumented in this encounter Additional Health Concerns Infection Onset Date Last Indicated Resolved Time COVID-19 Rule Out 04/17/2024 04/17/2024 04/17/2024 12:48 PM KITMAN Assessment Noted Time PHQ-9 Depression Total Score: 14 025 11:11 AM KITMAN documented as of this encounter Care Teams Tip Stretcher Relationship Specialty Start Date End Date Kelsey Lopez, ROOF PLUMBER [address] [facility] [address] [place] [address] PCP - General NURSE PRACTITIONER 09/28/23 documented as of this encounter
--- OUTSIDE RECORDS SUMMARY | 2025-01-25 20:13 | XMS_ITS | Encounter Summary ---
Author Organization [facility] Address [address] [place] [address] Care Team Providers Care Cathead Worker Name Role Phone Liat Arredondo [facility] Primary Care Provider + Kelsey Lopez NP Primary Care Provider [phone] Encounter Details Date Type Department Care Team (Late st Contact Info) Description 09/20/2021 MyCSikernes Risk Managementt Message Enc [facility] Medical Group Family & Internal Medicine [address] [address] Liat Arredondo [address] [address] Sick Social History Tobacco Use [...] Sex Assigned at Female 03/22/2024 8:36 AM LEAD TECHNOLOGIST IN CYTOGENETICS Legal Sex Female 8:06 AM CDT Gender Identity Female 03/22/2024 8:36 AM LEAD TECHNOLOGIST IN CYTOGENETICS Sexual Orientation Straight 04/17/2024 10 :06 AM LEAD TECHNOLOGIST IN CYTOGENETICS 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
--- OUTSIDE RECORDS SUMMARY | 2025-01-25 20:13 | XMS_ITS | Encounter Summary ---
Author Organization [facility] Address [address] [place] [address] Care Team Providers Care Recruiting Manager Name Role Phone Liat Arredondo [facility] Primary Care Provider + Kelsey Lopez NP Primary Care Provider [phone] Encounter Details Date Type Department Care Team (Late st Contact Info) Description 09/23/2021 MyCTolerxt Message Enc [facility] Medical Group Family & Internal Medicine [address] [address] Liat Arredondo [address] [address] Insurance Card Social History Tobacco [...] Sex Assigned at Female 03/22/2024 8:36 AM LEAK INSPECTOR Legal Sex Female 8:06 AM CDT Gender Identity Female 03/22/2024 8:36 AM LEAK INSPECTOR Sexual Orientation Straight 04/17/2024 10 :06 AM LEAK INSPECTOR 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
--- OUTSIDE RECORDS SUMMARY | 2025-01-25 20:14 | XMS_ITS | Clinical Summary ---
Author Organization [facility] [employer] [facility] Address [address] [facility] [place] [address] Care Team Providers Care Button Breaker Name Role Phone Kelsey Lopez Primary Care Provider [phone] Source Comments [facility],non-owned Affiliates and Associated Physician Practices is amultiple site organization consisting of ambulatory clinics and hospital sitesin [place], [place] and [place]. This disclosure is being madepursuant to the Care Everywhere program and may not contain all information available regarding this patient. Last updated 17.[facility] [employer] [facility] Allergies Active Allergy Reactions Criticality Noted Date Comments Nickel Rash Medium 11/15/2017 Medications * Be aware that medications may not be up to date on this document. Alwaysverify current medications with the patient. Ferrous Sulfate (IRON PO) Take 1 tablet by mouth once daily Active hydroCHLOROthiaz joyce (Hydrodiuril) 25 MG tablet Oral Active ondansetron, disintegrating, (Zofran ODT) 4 MG tablet Take 1 (one) tablet by mouth every 8 hours as needed 11/06/2024 Active Vit-Fe Fumarate-FA ( vitamin) 28-0.8 MG tablet Take 1 (one) tablet by mouth once daily Active promethazine (Phenergan) 12.5 MG tablet Take 1 (one) tablet by mouth every 6 hours as needed 06/28/2024 Active sertraline (Zoloft) 25 MG tablet Oral Active Active Problems Problem Noted Date Diagnosed Date MIMI (stress urinary incontinence, female) 2024 Assessment & Plan (01/10/2025 8:09 AM SPRUE CUTTING PRESS OPERATOR): - s/p midurethral sling (12/2023) - has ongoing severe incontinence that has a stress component, but also with urgency as well as insensate loss of urine - recommend cystoscopy and urodynamics to evaluate nature of urinary incontinence and rule out genitourinary fistula. - given history of non-functioning sling, patient inquired about recommended mode of delivery with current . We discussed the previous recommendation for delivery via , however, since sling is not functioning she questions this recommendation. We discussed how there is no clear cut answer. Could argue that is still recommended given history of periurethral laceration with prior delivery and further scarring of the urethra increasing risk of periurethral laceration with subsequent vaginal delivery. Discussed risk of mesh exposure should periurethral laceration occur. However, as there is not a clear answer, explained to patient I would discuss with my partners and reach back out with final recommendation. Estimated Date of Delivery Comme nts Yes 02/15/2025 Based on last me nstrual period of 05/11/2024 Encounters Date Type Department Care Team Description 01/10/2025 Telephone [facility] - CHEST PAIN COORDINATOR [address] [place] [address] Chloe Del Rio MD Question 01/08/2025 2:00 PM SPRUE CUTTING PRESS OPERATOR Office Visit [facility] - CHEST PAIN COORDINATOR [address] [place] [address] Chloe Del Rio MD MIMI (stress urinary incontinence, female) (Primary Dx) 01/08/2025 Travel 11/01/2024 1:00 PM CDT - 11/01/2024 11:59 PM CDT Hospital Encounter [facility] [address] [place] [address] Violet Del Rio MD Discharge Disposition: Home or Self Care from Last 3 Months Social History Tobacco Use Types Packs/Day Years Used Date Smoking Tobacco: Never Assessed PHQ-2 Answer Date Recorded Patient Health Questionnaire-2 Score 1 01/08/2025 Estimated Date of Delivery Comme nts Yes 02/15/2025 Based on last me nstrual period of 05/11/2024 Sex and Gender Information Value Date Recorded Sex Assigned at Not on file Legal Sex Female 4:27 PM CDT Gender Identity Not on file Sexual Orientation Not on file Last Filed Vital Signs Vital Sign Reading Time Taken Comments Blood Pressure 130/82 01/08/2025 2:27 PM SPRUE CUTTING PRESS OPERATOR Pulse - - Temperature - - Respiratory Rate - - Oxygen Saturation - - Inhaled Oxygen Concentration - - Weight 79.8 kg (176 lb) 01/08/2025 2:27 PM SPRUE CUTTING PRESS OPERATOR Height 162.6 cm (5' 4) 01/08/2025 2:27 PM SPRUE CUTTING PRESS OPERATOR Body Mass Index 30.21 01/08/2025 2:27 PM SPRUE CUTTING PRESS OPERATOR Plan of Treatment Upcoming Encounters Date Type Department Care Team (Late st Contact Info) Description 03/04/2025 2:00 PM SPRUE CUTTING PRESS OPERATOR Office Visit [facility] - CHEST PAIN COORDINATOR [address] [place] [address], [address] [place] [phone] Dylon Del Rio MD [address] [place] [address] [address] [place] [phone] 04/01/2025 10:45 AM SPRUE CUTTING PRESS OPERATOR Procedure visit [facility] - CHEST PAIN COORDINATOR [address] [facility] [address] [place] [phone] Chloe Del Rio MD [address] [facility] [address] [place], [place] [id number] Health Maintenance Due Date Last Done Comments HIV SCREENING 2004 DTAP/TDAP/TD VACCINES (1 - Tdap) 2008 HEPATITIS B VACCINE (1 of 3 - 19+ 3-dose series) 2008 HPV VACCINE (1 - 3-dose SCDM series) 2016 Cervical Cancer Screening 11/06/2016 PAP SMEAR 11/06/2016 11/06/2013 PAP with HPV 2019 COVID-19 VACCINE (2024-2 6 season) 2024 05/05/2020, 04/29/2020, 04/14/2020 INFLUENZA VACCINE (#1) 2024 0, 04/12/2019 OB-ONE HOUR GLUCOSE 11/09/2024 OB-TDAP CURRENT 11/16/2024 06/28/2022 OB-RHOGAM INJECTION 11/23/2024 Respiratory Syncytial Virus (RSV) Vaccine Pt: or over 60 yrs (1 - Risk 1-dose series) 12/21/2024 OB-GROUP B STREP SCREEN 01/11/2025 ZOSTER VACCINE (1 of 2) 2039 HEPATITIS C SCREENING Completed 03/22/2024 DEPRESSION SCREENING Completed 01/08/2025 HIB VACCINE Aged Out No longer eligi [...] anatomic survey (HCC) 20 weeks gestation of ([facility]) History of miscarriage, currently ([facility]) from Last 3 Months Results * Sonogram - Complete (11/01/2024 1:04 PM CDT) Linked Results Indication ======== Incomplete anatomy Low lying placenta History ====== OB History 3. Para 1 [id number] 1. miscarriage 2019 2. live 2022. Weight [...] Presentation: cephalic Placenta: Placental site: anterior. Placental xsqg-wo-iamrvlil os distance 95 mm. No longer low-lying [...] 1 lb 14 oz EFW by Hadlock ([id number]) appropriate Growth Overview Exam date GA BPD (mm) HC (mm) AC (mm) FL (mm) HL (mm) EFW (g) 10/04/2024 20w 6d 51.3 76% 186.9 48% 165.5 68% 34.8 45% 32.3 46% 413 68% 11/01/2024 24w 6d 66.4 94% 242 79% 212.9 71% 45.7 46% 40.9 37% 838 75% Anatomy The following structures appear normal: Heart / Thorax RVOT view. 1-sdipkw-mhvssxz view. Aortic arch view. Bicaval view. Abdomen [...] lying placenta NOS or without hemorrhage Procedures 39843: [place] [id number]: US Preg Uterus Transvaginal [facility] [employer] PACS Anatomical Region Laterality Modality Other 11/01/2024 1:04 PM CDT Hugh Eastman MD [facility] ORDERABLES Edited Result - Final from Last 3 Months Insurance [facility] Care Teams Button Breaker Relationship Specialty Start Date End Date Kelsey Lopez [address] [place] [address] PCP - General Bait Tier 10/21/24
--- OUTSIDE RECORDS SUMMARY | 2025-01-25 20:14 | XMS_ITS | Clinical Summary ---
Author Organization [facility] Care Team Providers Care Forest Resource Specialist Name Role Phone Unavailable Primary Care Provider [...]
--- OUTSIDE RECORDS SUMMARY | 2025-01-25 20:14 | XMS_ITS | Clinical Summary ---
Author Organization [facility] Address [address] [place] [address] Care Team Providers Care Laboratory Coordinator Name Role Phone Jessica, Kelsey Pino [employer] Primary Care Provider Allergies Active Allergy Reactions [...] (abdominal cramping). 40 tablet 06/11/19 23 Active buPROPion XL (WELLBUTRIN XL) 300 MG 24 hr tabletIndications: TERESSA (generalized anxiety disorder) Take 1 tablet (300 mg total) by mouth daily. 90 tablet 10/18/19 25 Active citalopram (CELEXA) 40 MG tabletIndications: TERESSA (generalized anxiety disorder),Moderate episode of recurrent major depressive disorder (CMS/HCC) Take 1 tablet (40 mg total) by mouth daily. 90 tablet 1 11/07/19 25 Active ondansetron (ZOFRAN-ODT) 4 MG disintegrating tabletIndications: Nausea Take 1 tablet (4 mg total) by mouth every 8 (eight) hours as needed for Nausea. 20 tablet 11/07/19 25 Active acetaminophen-code ine (TYLENOL #3) 300-30 MG tabletIndications: Migraine without aura and without status migrainosus, not intractable TAKE 1 TABLET BY MOUTH EVERY 6 HOURS NEEDED FOR PAIN OR ACUTE PAIN 15 tablet 12/25/19 25 Active ALPRAZolam (XANAX) 0.25 MG tabletIndications: TERESSA (generalized anxiety disorder) TAKE 1 TABLET(0.25 MG) BY MOUTH TWICE DAILY NEEDED FOR ANXIETY 60 tablet 01/21/20 25 Active ALPRAZolam (XANAX) 0.25 MG tabletIndications: TERESSA (generalized anxiety disorder) Take 1 tablet (0.25 mg total) by mouth 2 (two) times daily as needed for Anxiety. 60 tablet 10/26/19 25 025 Discontinued Active Problems Problem Noted [...] Encounters Date Type Department Care Team Description 12/23/2024 MyChart Message Enc [facility] Multispecialty Care - [place] [address] [place] [address] Kelsey Lopez, JACQUI Ketamine 11/06/2024 12:20 PM CDT [facility] [place] 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 Not on file Not on file Last Filed Vital Signs Vital Sign Reading Time Taken Comments Blood Pressure 114/79 04/17/2024 10:06 AM ADMIN SECRETARY Pulse 78 04/17/2024 10:06 AM ADMIN SECRETARY Temperature 36.9 C (98.4 F) 04/17/2024 10:06 AM ADMIN SECRETARY Respiratory Rate 18 04/17/2024 10:06 AM ADMIN SECRETARY Oxygen Saturation 99% 04/17/2024 10:06 AM ADMIN SECRETARY Inhaled Oxygen Concentration - - Weight 65.8 [...] 3 Years 11/06/2016 11/06/2013 COVID-19 Vaccine ( - 2024- season) 2024 05/05/2020, 04/29/2020, 04/14/2020, Additional history [...] 2064 Hepatitis C Completed 03/22/2024 PHQ-2 (Physician [place]) Completed 11/06/2024 Hepatitis A Vaccines Aged Out [...] HEPATITIS C ANTIBODY Routine 03/22/2024 9:27 AM ADMIN SECRETARY Need for hepatitis C screening test OUTSIDE CYTOPATH CERV/VAG INTERPRET (PAP) 04/13/2022 from Last 3 Months or Most Recently Relevant to Health Maintenance Results * HEPATITIS C ANTIBODY (03/22/2024 9:27 AM ADMIN SECRETARY) HEPATITIS C AB NON-REACTI VE NON-REACT BARRETT 03/22/2024 7:18 PM ADMIN SECRETARY [facility] Comment: ANTIBODIES TO HCV NOT DETECTED. DOES NOT EXCLUDE THE POSSIBILITY OF EXPOSURE TO HCV. 03/22/2024 9:27 AM ADMIN SECRETARY Kelsey Lopez NP LABORATORY Final Resul t [facility] [address] [place] [address], [id number] * PAP SMEAR WITH HPV (04/13/2022) 04/13/2022 [facility] Scanned SCANNING Final Resu lt from Last 3 Months or Most Recently Relevant to Health Maintenance Insurance [facility] Care Teams Laboratory Coordinator Relationship Specialty Start Date End Date Kelsey Lopez NP [address] [facility] [address] [place] [address] PCP - General NURSE PRACTITIONER 09/28/23
--- OUTSIDE RECORDS SUMMARY | 2025-01-25 20:14 | XMS_ITS | Encounter Summary ---
Author Organization [facility] Address [address] [place] [address] Care Team Providers Care Hydrochloric Acid Operator Name Role Phone Liat Arredondo [facility] Primary Care Provider + Kelsey Lopez NP Primary Care Provider [phone] Encounter Details Date Type Department Care Team (Late st Contact Info) Description 05/24/2022 MyCBriefCamt Message Enc [facility] Medical Group Family & Internal Medicine [address] [address] [address]iat Arredondo [address] [address] Cold meds Social History Tobacco [...] Sex Assigned at Female 03/22/2024 8:36 AM DENTAL PRACTICE MANAGER Legal Sex Female 8:06 AM CDT Gender Identity Female 03/22/2024 8:36 AM DENTAL PRACTICE MANAGER Sexual Orientation Straight 04/17/2024 10 :06 AM DENTAL PRACTICE MANAGER 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 Not on file Not on file documented as of this encounter Plan of Treatment Not on file documented as of this encounter Visit Diagnoses Not on filedocumented in this encounter Additional Health Concerns Infection Onset Date Last Indicated Resolved Time COVID-19 Rule Out 09/28/2023 09/28/2023 09/28/2023 3:21 PM CDT COVID-19 Rule Out 04/17/2024 04/17/2024 04/17/2024 12:48 PM DENTAL PRACTICE MANAGER Assessment Noted Time PHQ-9 Depression Total Score: 5 04/04/19 20 9:23 AM DENTAL PRACTICE MANAGER documented as of this encounter Care Teams Hydrochloric Acid Operator Relationship Specialty Start Date End Date Liat Arredondo FNP-BC PCP - General Nurse Practitioner Family 04/04/1901/31/23 Kelsey Lopez, APPLICATION SUPPORT ADMINISTRATOR [address] [facility] [address] [place] [address] PCP - General NURSE PRACTITIONER 09/28/23 documented as of this encounter
--- OUTSIDE RECORDS SUMMARY | 2025-01-25 20:14 | XMS_ITS | Encounter Summary ---
Author Organization [facility] Address [address] [place] [address] Care Team Providers Care Pricing Coordinator Name Role Phone Liat Arredondo [facility] Primary Care Provider + Kelsey Lopez NP Primary Care Provider [phone] Encounter Details Date Type Department Care Team (Late st Contact Info) Description 03/07/2022 MyCCopper Mobilet Message Enc [facility] Medical Group Family & Internal Medicine [address] [address] Liat Arredondo [address] [address] Lucien Social History Tobacco Use [...] Sex Assigned at Female 03/22/2024 8:36 AM BULK SYSTEM OPERATOR Legal Sex Female 8:06 AM CDT Gender Identity Female 03/22/2024 8:36 AM BULK SYSTEM OPERATOR Sexual Orientation Straight 04/17/2024 10 :06 AM BULK SYSTEM OPERATOR 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 Not on file Not on file documented as of this encounter Plan of Treatment Not on file documented as of this encounter Visit Diagnoses Not on filedocumented in this encounter Additional Health Concerns Infection Onset Date Last Indicated Resolved Time COVID-19 Rule Out 09/28/2023 09/28/2023 09/28/2023 3:21 PM CDT COVID-19 Rule Out 04/17/2024 04/17/2024 04/17/2024 12:48 PM BULK SYSTEM OPERATOR Assessment Noted Time PHQ-9 Depression Total Score: 5 04/04/19 20 9:23 AM BULK SYSTEM OPERATOR documented as of this encounter Care Teams Pricing Coordinator Relationship Specialty Start Date End Date Liat Arredondo FNP-BC PCP - General Nurse Practitioner Family 04/04/1901/31/23 Kelsey Lopez, MONOLOGIST [address] [facility] [address] [place] [address] PCP - General NURSE PRACTITIONER 09/28/23 documented as of this encounter
--- OUTSIDE RECORDS SUMMARY | 2025-01-25 20:14 | XMS_ITS | Encounter Summary ---
Author Organization [facility] Address [facility] [place] [address] Care Team Providers Care Gun Fertilizer Name Role Phone Kelsey Lopez NP Primary Care Provider [phone] Encounter Details Date Type Department Care Team (Late st Contact Info) Description 12/23/2024 EventMamat Message Enc [facility] Medical Group Multispecialty Care - [place] 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
--- OUTSIDE RECORDS SUMMARY | 2025-01-25 20:14 | XMS_ITS | Encounter Summary ---
Author Organization [facility] Address [address] [place] [address] Care Team Providers Care Clay Preparation Supervisor Name Role Phone Liat Arredondo [facility] Primary Care Provider + Kelsey Lopez NP Primary Care Provider [phone] Encounter Details Date Type Department Care Team (Late st Contact Info) Description 08/05/2021 Bibulu Message Enc [facility] Family & Internal Medicine [address] [address] Izzy, [facility] Provider Due for routine follow up [...] Sex Assigned at Female 03/22/2024 8:36 AM SILVERWARE BUFFER Legal Sex Female 8:06 AM CDT Gender Identity Female 03/22/2024 8:36 AM SILVERWARE BUFFER Sexual Orientation Straight 04/17/2024 10 :06 AM SILVERWARE BUFFER 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 Not on file Not on file documented as of this encounter Plan of Treatment Not on file documented as of this encounter Visit Diagnoses Not on filedocumented in this encounter Additional Health Concerns Infection Onset Date Last Indicated Resolved Time COVID-19 Rule Out 09/28/2023 09/28/2023 09/28/2023 3:21 PM CDT COVID-19 Rule Out 04/17/2024 04/17/2024 04/17/2024 12:48 PM SILVERWARE BUFFER Assessment Noted Time PHQ-9 Depression Total Score: 5 04/04/19 20 9:23 AM SILVERWARE BUFFER documented as of this encounter Care Teams Clay Preparation Supervisor Relationship Specialty Start Date End Date Liat Arredondo FNP- PCP - General Nurse Practitioner Family 04/04/1901/31/23 Kelsey Lopez, WAREHOUSEMAN [address] [facility] [address] [place] [address] PCP - General NURSE PRACTITIONER 09/28/23 documented as of this encounter
--- OUTSIDE RECORDS SUMMARY | 2025-01-25 20:14 | XMS_ITS | Encounter Summary ---
Author Organization [facility] Address Counts include 234 beds at the [facility] [place] [address] Care Team Providers Care Sr Solutions Consultant Name Role Phone Liat Arredondo [facility] Primary Care Provider + Kelsey Lopez NP Primary Care Provider [phone] Encounter Details Date Type Department Care Team (Late st Contact Info) Description 05/04/2021 MyCOodrivet Message Enc [facility] Medical Group Family & Internal Medicine [address] [address] Liat Arredondo [address] [phone] Lab results Social History Tobacco Use Types [...] Sex Assigned at Female 03/22/2024 8:36 AM FELT PULLER Legal Sex Female 8:06 AM CDT Gender Identity Female 03/22/2024 8:36 AM FELT PULLER Sexual Orientation Straight 04/17/2024 10 :06 AM FELT PULLER 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 PULLER documented in this encounter Plan of Treatment Not on file documented as of this encounter Visit Diagnoses Not on filedocumented in this encounter Additional Health Concerns Infection Onset Date Last Indicated Resolved Time COVID-19 Rule Out 09/28/2023 09/28/2023 09/28/2023 3:21 PM CDT COVID-19 Rule Out 04/17/2024 04/17/2024 04/17/2024 12:48 PM FELT PULLER Assessment Noted Time PHQ-9 Depression Total Score: 5 04/04/19 20 9:23 AM FELT PULLER documented as of this encounter Care Teams Sr Solutions Consultant Relationship Specialty Start Date End Date Liat Arredondo FNP- PCP - General Nurse Practitioner Family 04/04/1901/31/23 Kelsey Lopez NP [address] [place] [address] PCP - General NURSE PRACTITIONER 09/28/23 documented as of this encounter
--- OUTSIDE RECORDS SUMMARY | 2025-01-25 20:14 | XMS_ITS | Encounter Summary ---
Author Organization [facility] Address [facility] [place] [address] Care Team Providers Care Web Services Architect Name Role Phone Kelsey Lopez NP Primary Care Provider [phone] Encounter Details Date Type Department Care Team (Late st Contact Info) Description 09/02/2024 MyChart Message Enc [facility] Medical Group Multispecialty Care - [place] 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 [address] [place] [address] PCP - General NURSE PRACTITIONER 09/28/23 documented as of this encounter
--- OUTSIDE RECORDS SUMMARY | 2025-01-25 20:14 | XMS_ITS | Encounter Summary ---
Author Organization [facility] Address [facility] [place] [address] Care Team Providers Care Deck Mate Name Role Phone Liat Arredondo [facility] Primary Care Provider + Kelsey Lopez NP Primary Care Provider [phone] Encounter Details Date Type Department Care Team (Late st Contact Info) Description 02/02/2021 Farat Message Enc [facility] Medical Group Family & Internal Medicine [address] [address] Liat Arredondo [address] [address] Other Social History Tobacco Use [...] Sex Assigned at Female 03/22/2024 8:36 AM PRECISION AGRICULTURE SPECIALIST Legal Sex Female 8:06 AM CDT Gender Identity Female 03/22/2024 8:36 AM PRECISION AGRICULTURE SPECIALIST Sexual Orientation Straight 04/17/2024 10 :06 AM PRECISION AGRICULTURE SPECIALIST 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 Unable to assess 02/04/2021 7:11 AM PRECISION AGRICULTURE SPECIALIST documented as of this encounter Progress Notes * Charlotte English RN - 02/04/2021 12:48 PM CST Spoke with patient and completed chart prep. ISION AGRICULTURE SPECIALIST * Charlotte English RN - 02/02/2021 4:45 PM CST Please advise, do you need to see patient, if yes, okay for VV? ISION AGRICULTURE SPECIALIST documented in this encounter Plan of Treatment Not on file documented as of this encounter Visit Diagnoses Not on filedocumented in this encounter Additional Health Concerns Infection Onset Date Last Indicated Resolved Time COVID-19 Rule Out 09/28/2023 09/28/2023 09/28/2023 3:21 PM CDT COVID-19 Rule Out 04/17/2024 04/17/2024 04/17/2024 12:48 PM PRECISION AGRICULTURE SPECIALIST Assessment Noted Time PHQ-9 Depression Total Score: 5 04/04/19 20 9:23 AM PRECISION AGRICULTURE SPECIALIST documented as of this encounter Care Teams Deck Mate Relationship Specialty Start Date End Date Liat Arredondo FNP-BC PCP - General Nurse Practitioner Family 04/04/1901/31/23 Kelsey Lopez NP [address] [facility] [address] [place] [address] PCP - General NURSE PRACTITIONER 09/28/23 documented as of this encounter
--- OUTSIDE RECORDS SUMMARY | 2025-01-25 20:14 | XMS_ITS | Encounter Summary ---
Author Organization [facility] Address [address] [place] [address] Care Team Providers Care Social Service Assistant Name Role Phone Liat Arredondo [facility] Primary Care Provider + Kelsey Lopez NP Primary Care Provider [phone] Encounter Details Date Type Department Care Team (Late st Contact Info) Description 04/09/2021 MyCYCLIENTS COMPANYt Message Enc [facility] Medical Group Family & Internal Medicine [address] [address] Liat Arredondo [address] [address] Me again Social History Tobacco [...] Sex Assigned at Female 03/22/2024 8:36 AM GLASS MOLD REPAIRER Legal Sex Female 8:06 AM CDT Gender Identity Female 03/22/2024 8:36 AM GLASS MOLD REPAIRER Sexual Orientation Straight 04/17/2024 10 :06 AM GLASS MOLD REPAIRER 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 Not on file Not on file documented as of this encounter Plan of Treatment Not on file documented as of this encounter Visit Diagnoses Not on filedocumented in this encounter Additional Health Concerns Infection Onset Date Last Indicated Resolved Time COVID-19 Rule Out 09/28/2023 09/28/2023 09/28/2023 3:21 PM CDT COVID-19 Rule Out 04/17/2024 04/17/2024 04/17/2024 12:48 PM GLASS MOLD REPAIRER Assessment Noted Time PHQ-9 Depression Total Score: 5 04/04/19 20 9:23 AM GLASS MOLD REPAIRER documented as of this encounter Care Teams Social Service Assistant Relationship Specialty Start Date End Date Liat Arredondo FNP-BC PCP - General Nurse Practitioner Family 04/04/1901/31/23 Kelsey Lopez, BIT SHARPENER [address] [place] [address] PCP - General NURSE PRACTITIONER 09/28/23 documented as of this encounter
[2025-01-25 20:29] LABS: Hematocrit 33.0 % (37.0-47.0); Hemoglobin 11.1 g/dL (12.0-15.0); Immature Granulocyte Percent A 1.3 % (0-0.5); Lymphocytes Absolute Auto 3.19 K/mm3 (0.9-3.2); Mean Corpuscular HGB Conc 33.6 g/dl (32-36); Mean Corpuscular Hemoglobin 31.8 pg (26-34); Mean Corpuscular Volume 94.6 fl (80-100); Nucleated Red Blood Cells Absolute Auto 0.000 K/mm3 (0.0-0.012); Nucleated Red Blood Cells Perc 0.0 % (0.0-0.2); Platelet Count Result 171 k/mm3 (150-375); Red Blood Count 3.49 M/mm3 (4.2-5.4); White Blood Count 14.0 K/mm3 (4.5-10.0)
[2025-01-25] MEDS: AZITHROMYCIN IV 500 MG in SODIUM CHLORIDE 0.9% IV 250 ML IVPB (20:33)
[2025-01-25 20:40] LABS: INR 1.0; Prothrombin Time 13.5 Seconds (11.1-14.7)
[2025-01-25 20:41] LABS: Partial Thromboplastin Time 26.5 Seconds (22.3-36.8)
--- NOTE | 2025-01-25 20:51 | PM.IMHP ---
H&P: HPI History of Present Illness Date/Time: 01/25/25 20:51 Chief Complaint: Bleeding Narrative: 34 y/o at 37 weeks gestation who had leaned over to pick something up and then developed heavy vaginal bleeding prompting her arrival by EMS. Bleeding has persisted here at the hospital. She has no abdominal pain. Low lying placenta diagnosed earlier in had resolved on ultrasound exam. Review of Systems Review of Systems: All systems reviewed & are unremarkable except as noted in HPI and below PMFSH Past Medical History Medical History Constipation Anxiety Surgical History Surgical History [employer] teeth removed History of bladder surgery sling Family History Family History Grandparent Cerebrovascular accident History of blood clots Congestive heart failure Diabetes mellitus Hypertension Sibling Asthma Other Unknown family medical history Social History Social History Smoking status: Never smoker Alcohol intake: current Alcohol use details: social Substance use: never Substance use type: marijuana Lack of Transportation: No Lack of Food: Never True Current Housing: I Have Housing Concerned About Future Housing: No Difficulty Paying Gas/Electric Bills: No Difficulty Paying for Meds: No Currently Unemployed: No Education: Associate Degree Difficulty w/ Childcare or Family Care: No Spiritual care concerns: No Meds Home Medications and Allergies Home Medications ?Medication ?Instructions ?Recorded ?Confirmed ?Type vits no.126-ferrous fum 1 tablet PO DAILY 08/17/22 01/21/25 History 28 mg iron-folic acid 800 mcg tablet (Classic ) acetaminophen 325 mg-codeine 15 mg tablet PO PRN 08/09/24 01/21/25 History tablet bupropion HCl 300 mg 24 hr tablet, 300 mg PO QAM 08/09/24 01/21/25 History extended release cholecalciferol (vitamin D3) 50 50 mcg PO DAILY 08/09/24 01/21/25 History mcg (2,000 unit) capsule digestive enzymes 1 cap PO DAILY 08/09/24 01/21/25 History citalopram 20 mg tablet (Celexa) 20 mg PO DAILY 10/23/24 01/21/25 History venlafaxine 37.5 mg tablet 37.5 mg PO DAILY 10/23/24 01/21/25 History blood sugar diagnostic (SuriTouch #50 ea 12/31/24 01/21/25 Rx Verio test strips) blood-glucose meter (SuriTouch #1 ea 12/31/24 01/21/25 Rx Verio Flex Meter) lancets 30 gauge (SiNode SystemsTouch Delica #100 ea 12/31/24 01/21/25 Rx Plus Lancet) ondansetron 4 mg disintegrating 4 mg PO Q8H #30 tabs 01/08/25 01/21/25 Rx tablet Allergies Allergy/AdvReac Type Severity Reaction Status Date / Time nickel Allergy Rash Verified 01/21/25 09:47 No Known Drug Allergies AdvReac Unknown Other Verified 01/21/25 09:47 Vital Signs Vital Signs - 24 hr 01/25/25 20:18 01/25/25 20:30 01/25/25 20:33 Pulse Rate 92 94 Blood Pressure 107/61 118/56 L Pulse Oximetry 97 01/25/25 20:38 01/25/25 20:43 01/25/25 20:45 Pulse Rate 102 H Blood Pressure 115/60 Pulse Oximetry 98 98 Exam Const: Other: Well-developed, well-nourished female in no acute distress. GI: Other: ABD: Soft, nontender, nondistended, gravid. No guarding or rebound tenderness. No hepatosplenomegaly. NST reactive. TOCO: every 3-5 min contractions. : Other: Cervix: 3/90, with copious bright red bleeding per RN exam. Extrem: Other: Extremities: nontender with no edema Psych: Other: Mental status grossly normal, with normal mood and affect. H&P: Results Labs Labs: Short CBC 01/25/25 Range/Units 20:22 WBC 14.0 H (4.5-10.0) K/mm3 Hgb 11.1 L (12.0-15.0) g/dL Hct 33.0 L (37.0-47.0) % Plt Count 171 (150-375) k/mm3 Assessment and Plan Assessment and plan (1) Term : Code(s): Z34.90 - Encounter for supervision of normal , unspecified, unspecified trimester Status: Acute Assessment and Plan: A: IUP at 37 weeks with heavy vaginal bleeding. P: Offered emergent primary . She understands risks of surgery to include risks of anesthesia, risks of pain, infection, bleeding, blood products, thromboembolic phenomena and damage to adjacent structures such as bowel, bladder, ureters, blood vessels and nerves. She understands all these risks and elects to proceed with surgery. (2) Episode of heavy vaginal bleeding: Code(s): N93.9 - Abnormal uterine and vaginal bleeding, unspecified Status: Acute
--- NOTE | 2025-01-25 20:53 | WPDHPUPDATE1 ---
History and Physical Update Update Date/Time: 01/25/25 20:53 History and Physical has been reviewed, including an updated exam of the patient. There are NO changes in the patient's condition. Risks, benefits, and alternatives have been discussed and questions answered. Patient agrees to proceed with procedure.
--- NOTE | 2025-01-25 21:35 | P.PCNOB_ITS ---
OB - Delivery Note Procedure Delivery date: 01/25/25 Pre-op diagnosis: Other (Heavy vaginal bleeding) Post-op Diagnosis: Same Induction method: None Delivery monitor: External FHT and External Uterine Procedure Performed: Primary Surgeon: Hugh Eastman MD Anesthesia type: Spinal Description of Procedure/Findings: Findings: Clear amniotic fluid. Normal-appearing uterus, tubes and ovaries. Techniques: The patient was taken to the operating room where she was prepared and draped in the usual sterile fashion in dorsal supine position with a leftward tilt. She received cefazolin and azithromycin preoperatively. Spinal anesthesia was found to be adequate. A Pfannenstiel skin incision was made and carried through to the underlying layer of the fascia. The fascia was incised in the midline and the incision was extended laterally. The fascia was dissected free of the underlying rectus muscles. The rectus muscles were in the midline. The peritoneum was identified, tented up and entered sharply. The peritoneal incision was extended superiorly and inferiorly with good visualization of the bladder. The bladder blade was placed. The vesicouterine peritoneum was identified, tented up and entered sharply. The incision was extended laterally and the bladder flap was developed. The bladder blade was replaced. The uterus was then incised sharply in a transverse fashion along the lower uterine segment. The incision was extended laterally. The 's head was delivered atraumatically to the sterile field, followed by the body. The nose and mouth were bulb suctioned. After a delay, the cord was clamped and cut. The infant was handed off the field. Cord blood was collected. The placenta was removed manually and was passed off the field. The uterus was exteriorized and cleared of all clots and debris. The uterine incision was reapproximated using 0 Monocryl in a running, locked fashion. Excellent hemostasis resulted as did excellent reapproximation of the normal anatomy. The uterus was returned the abdomen. The pelvis was irrigated copiously with warmed normal saline. The bladder flap was treated with Hemaderm. Rigorous hemostasis was assured. The fascial layer was reapproximated using 0 Vicryl in a running fashion. The skin was closed with a running, subcuticular stitch of 4 0 Vicryl. Dermaflex was applied externally. Sponge, lap, needle and instrument counts were correct. The patient was taken to the recovery room in stable condition. The went to the nursery in stable condition. I was present and scrubbed the entire procedure. Specimen: Yes (Cord blood, placenta) Estimated Blood Loss: 675 Drains: Yes ([place]ris) Packing: No Pathology: Yes (Placenta) Complications: None Condition: Stable Disposition: PACU [place] Baby Date of : 01/25/25 Time of : 21:08 Gestational Age by Date: 37 Infant gender: Female Weight (pounds): 7 Weight (ounces): 0 presentation: vertex Placenta delivery description: Manual Removal and Normal Configuration Cord Vessel Description: 3 Vessels and Delayed Cord Clamping score one minute: 8 score five minutes: 9
--- NOTE | 2025-01-25 21:41 | P.DS_ITS ---
DS: Admitting Diagnosis Discharge Date 01/28/25 Admitting Diagnosis IUP at 37 weeks Heavy vaginal bleeding DS: Discharge Diagnosis Discharge Diagnosis (1) delivery delivered: Code(s): O82 - Encounter for delivery without indication Status: Acute OB - DS: Summary OB Procedures : NST OB Procedures Intrapartum: OB Procedures: : None Peripartum Data Procedures: Procedures Operation Date: 01/25/25 20:30 <No data on this case meets the specified criteria> Time Spent with Patient Time attestation: Total time spent providing and/or coordinating discharge services: DS: Data Data Completed and Pending Labs on day of discharge: Labs from last 24 hours 01/25/25 20:22 WBC 14.0 H RBC 3.49 L Hgb 11.1 L Hct 33.0 L MCV 94.6 MCH 31.8 MCHC 33.6 RDW 13.2 Plt Count 171 MPV 9.5 Immature Gran % (Auto) 1.3 H Neut % (Auto) 69.7 Lymph % (Auto) 22.7 [place] % (Auto) 5.6 Eos % (Auto) 0.5 Baso % (Auto) 0.2 Lymph # (Auto) 3.19 [place] # (Auto) 0.8 H Eos # (Auto) 0.1 Baso # (Auto) 0.0 Abs Immat Gran (auto) 0.18 H Absolute Neuts (auto) 9.8 H Absolute Nucleated RBC 0.000 Nucleated RBC % 0.0 PT 13.5 INR 1.0 APTT 26.5 Blood Type O Positive Antibody Screen Negative Crossmatch See Detail Discharge Plan Discharge Attending physician on discharge: Hugh Eastman Discharging Clinician: Hugh Eastman Patient Disposition: Home Activity: pelvic rest Diet: regular Wound Care Instructions: incision open to air Discharge Instructions: Call or return if temperature above 100.4? F, increased abdominal pain, increased vaginal bleeding or any new problems. Patient Language: Latvian Stand Alone Forms: General Discharge Information Follow-up/Referrals: Hugh Eastman MD [Physician, RESEARCH ASSISTANT PROFESSOR] - 4 Weeks Discharge Medications: New ibuprofen 600 mg tablet 600 mg PO Q6H PRN (Reason: cramps) Qty: 30 0RF oxycodone-acetaminophen [Endocet] 5-325 mg tablet 1 - 2 tablet PO Q6H PRN (Reason: pain) Qty: 30 0RF ferrous sulfate 325 mg (65 mg iron) tablet 325 mg PO DAILY Qty: 30 0RF Continued bupropion HCl 300 mg tablet extended release 24 hr 300 mg PO QAM cholecalciferol (vitamin D3) 50 mcg (2,000 unit) capsule 50 mcg PO DAILY digestive enzymes Capsule 1 cap PO DAILY Rx Instructions: administer with food; swallow whole; do not crush/chew/dissolve/break/cut citalopram [Celexa] 20 mg tablet 20 mg PO DAILY venlafaxine 37.5 mg tablet 37.5 mg PO DAILY Classic 28 mg iron- 800 mcg Tablet 1 tablet PO DAILY Changed ondansetron 4 mg tablet,disintegrating 4 mg PO Q8H PRN (Reason: Nausea) Qty: 20 0RF Discontinued (DME) blood-glucose meter [OneTouch Verio Flex meter] Misc See Rx Instructions .Route Qty: 1 0RF Rx Instructions: As directed (DME) OneTouch Verio test strips Strip See Rx Instructions .Route Qty: 50 0RF Rx Instructions: As directed (DME) lancets [OneTouch Delica Plus Lancet] 30 gauge misc See Rx Instructions .Route Qty: 100 0RF Rx Instructions: As directed acetaminophen-codeine 325-15 mg tablet PO PRN Date of admission: 01/25/25 19:50 Primary Care Provider: JessicaKelsey Admitting Provider: Hugh Eastman Attending physician on admission: Hugh Eastman Condition: Stable
[2025-01-25 21:55] LABS: Syphilis IgG/IgM Antibody Non-Reactive (Nonreactive)
[2025-01-25] MEDS: OXYTOCIN 30 UNITS/NS 500 ML 30 UNITS/500 ML BAG 125 UNITS IV CONT (22:21)
[2025-01-25] MEDS: KETOROLAC 15 MG/ML VIAL (*BKC) IV PUSH (23:14)
[2025-01-25] MEDS: LORATADINE 10 MG TABLET PO (23:14)
[2025-01-26] VITALS (10 sets, daily range): BP systolic 100–128; BP diastolic 49–76; PULSE 61–96; RESP 14–18; TEMP 36.6–37.5; O2SAT 95–99
[2025-01-26] MEDS: LIDOCAINE 5% PATCH 1 PATCH TRANSDERM (00:20)
[2025-01-26] MEDS: ACETAMINOPHEN 325 MG TABLET 650 MG (00:20)
--- NOTE | 2025-01-26 03:28 | OBPPTRN ---
01/26/2025 at 0115 Patient transferred to post room #291 on stretcher. Patient transferrd to bed with maxi air mattress. Patient tolerated well.. Support person present. Patient and her significant other oriented to unit, room, information board, rooming in, admission packet and security measures. Patient and her significant other verbalizes understanding.
[2025-01-26] MEDS: KCL 20 MEQ/D5/0.45% SOD CHL 1,000 ML 125 ML IV CONT (03:45)
[2025-01-26] MEDS: NALBUPHINE HCL INJ 10 MG/ML AMPUL 2 MG IV PUSH (04:15)
[2025-01-26 05:31] LABS: Hematocrit 28.6 % (37.0-47.0); Hemoglobin 9.5 g/dL (12.0-15.0); Immature Granulocyte Percent A 0.7 % (0-0.5); Lymphocytes Absolute Auto 2.11 K/mm3 (0.9-3.2); Mean Corpuscular HGB Conc 33.2 g/dl (32-36); Mean Corpuscular Hemoglobin 31.8 pg (26-34); Mean Corpuscular Volume 95.7 fl (80-100); Nucleated Red Blood Cells Absolute Auto 0.000 K/mm3 (0.0-0.012); Nucleated Red Blood Cells Perc 0.0 % (0.0-0.2); Platelet Count Result 134 k/mm3 (150-375); Red Blood Count 2.99 M/mm3 (4.2-5.4); White Blood Count 13.7 K/mm3 (4.5-10.0)
[2025-01-26] MEDS: ACETAMINOPHEN 500 MG TABLET 1000 MG PO ×3 (05:51→19:00)
[2025-01-26] MEDS: KETOROLAC 15 MG/ML VIAL (*BKC) IV PUSH (05:52)
[2025-01-26] MEDS: oxyCODONE HCL (*CRX) 5 MG TAB IR PO ×2 (07:38→10:44)
--- NOTE | 2025-01-26 10:10 | PM.OBPNVD ---
OB - PN: Subj Subjective Date/time seen: 01/26/25 10:10 Narrative: Pain OK. Tolerating diet. OB - PN: Obj Data Labs 01/26/25 05:09 Labs: Laboratory Results - last 24 hr 01/25/25 01/26/25 20:22 05:09 WBC 14.0 H 13.7 H RBC 3.49 L 2.99 L Hgb 11.1 L 9.5 L Hct 33.0 L 28.6 L MCV 94.6 95.7 MCH 31.8 31.8 MCHC 33.6 33.2 RDW 13.2 13.1 Plt Count 171 134 L MPV 9.5 9.7 Immature Gran % (Auto) 1.3 H 0.7 H Neut % (Auto) 69.7 78.1 H Lymph % (Auto) 22.7 15.4 L [place] % (Auto) 5.6 5.3 Eos % (Auto) 0.5 0.2 Baso % (Auto) 0.2 0.3 Lymph # (Auto) 3.19 2.11 [place] # (Auto) 0.8 H 0.7 H Eos # (Auto) 0.1 0.0 Baso # (Auto) 0.0 0.0 Abs Immat Gran (auto) 0.18 H 0.10 H Absolute Neuts (auto) 9.8 H 10.7 H Absolute Nucleated RBC 0.000 0.000 Nucleated RBC % 0.0 0.0 PT 13.5 INR 1.0 APTT 26.5 Syphilis IgG/IgM Ab Non-reactive Blood Type O Positive Antibody Screen Negative Crossmatch See Detail OB - PN A/P Plan day: 1 Comments: A: POD#1, doing well. P: Routine care. Exam Narrative: AVSS I/O OK ABD soft, nontender, fundus firm. Incision c/d/i. EXT nontender
[2025-01-26] MEDS: DOCUSATE SODIUM 100 MG CAPSULE PO ×2 (10:45→17:27)
[2025-01-26] MEDS: MULTIVIT/MIN/PREN/FOL AC/IRON TABLET 1 TAB PO (10:45)
[2025-01-26] MEDS: SIMETHICONE 80 MG TAB.CHEW PO ×3 (10:45→17:27)
[2025-01-26] MEDS: CITALOPRAM HYDROBROMIDE 20 MG TABLET 40 MG PO (12:57)
[2025-01-26] MEDS: KETOROLAC 10 MG TABLET PO ×2 (12:57→18:51)
[2025-01-26] MEDS: buPROPion HCL XL (24 HR) 150 MG TABCR 300 MG PO (12:58)
[2025-01-26] MEDS: diphenhydrAMINE HCl CAP 25 MG CAPSULE 50 MG PO (14:41)
[2025-01-26] MEDS: oxyCODONE HCL (*CRX) 5 MG TAB IR 10 MG PO ×2 (14:42→20:29)
--- NOTE | 2025-01-26 17:29 | WPDANLDPN2 ---
Anes-Prog Note L&D Date/Time: 01/26/25 17:29 Comfortable throughout: section Neuraxial method: spinal Epidural/Spinal procedure site: clean & non-tender Neuro status: Neuro function grossly intact. Cardiovascular status: normal Respiratory status: normal Airway patency: baseline Mental status: baseline Post-Op hydration status: normal Vital Signs: Last Vital Signs Temp 36.6 C 01/26/25 12:00 Pulse 79 01/26/25 12:00 Resp 18 01/26/25 12:00 BP 105/49 L 01/26/25 12:00 Pulse Ox 97 01/26/25 12:00 O2 Del Method Room Air 01/25/25 22:30 Pain score (VAS): 03/08 I/O: Intake & Output 01/26/25 01/26/25 01/26/25 07:59 15:59 23:59 Intake Total 300 340 Output Total 3576 2495 Balance -5928 -6010 Post-procedural complaints: pruritis severe, treatment refractory Patient feedback: Patient satisfied with anesthetic care.
--- NOTE | 2025-01-26 17:29 | WPDANLDNPN2 ---
Anes-Prog Note L&D-Neuraxial Date/Time: 01/26/25 17:29 Neuraxial medications: intrathecal PF morphine Opiod-related complaints: pruritis Patient feedback: Patient satisfied with post-operative pain management.
[2025-01-27] MEDS: IBUPROFEN 600 MG TABLET PO ×4 (01:06→19:01)
[2025-01-27] MEDS: ACETAMINOPHEN 500 MG TABLET 1000 MG PO ×4 (01:06→19:01)
[2025-01-27] MEDS: SIMETHICONE 80 MG TAB.CHEW PO ×4 (07:32→21:01)
[2025-01-27 07:40] VITALS: BP 111/79; PULSE 70; RESP 16; TEMP 36.4; O2SAT 98
--- NOTE | 2025-01-27 09:02 | P.PNOB_ITS ---
OB - PN: Subj Subjective Date/time seen: 01/27/25 09:02 Narrative: Pain OK. Tolerating diet. OB - PN: Obj Data Labs 01/26/25 05:09 OB - PN A/P Plan day: 2 Comments: A: POD#2, doing well. P: Routine care. Exam 2 Narrative: AVSS I/O OK ABD soft, nontender, fundus firm. Incision c/d/i. EXT nontender
[2025-01-27] MEDS: buPROPion HCL XL (24 HR) 150 MG TABCR 300 MG PO (09:05)
[2025-01-27] MEDS: MULTIVIT/MIN/PREN/FOL AC/IRON TABLET 1 TAB PO (09:06)
[2025-01-27] MEDS: CITALOPRAM HYDROBROMIDE 20 MG TABLET 40 MG PO (09:06)
[2025-01-27] MEDS: DOCUSATE SODIUM 100 MG CAPSULE PO ×2 (09:06→16:24)
--- NOTE | 2025-01-27 09:45 | PC.NURSE ---
Consulted with patient to assess needs related to . Discussed with mother her successes, concerns and any questions she has. Per mother she had started using a breast pump because infant had been in Level II Nursery and infant is also receiving a bottle after she breast feeds. We reviewed working with the infant, supporting breast, protecting her nipples with an optimal deep latch, good positioning, and good hand washing. Encouraged understanding the benefits of skin to skin, responding to feeding cues, frequencies of feeding 8-12 times in 24 hours (approximately 2-3 hours), duration of feedings, milk production, intake/output feeding sheet and signs of adequate intake encouraging swallowing at the breast. Reviewed positioning and alignment, supporting breast, off-centered (asymmetrical latch) and leading with the chin with big, open, wide gape. latched optimally to the [left] breast in [cross cradle] position. Education given to the mother of how to visualize the suckling (with good rocking jaw motion) swallows (dropping of the lower jaw) and how to listen for drinking at the breast (the ka sound). The was [able] to maintain latch without discomfort to mother. Nipple care reviewed with optimal latch, good positioning and using clean hands when touching her breast. Resources used to facilitate learning were used from the [visual handouts/ tool/mom and baby guide]. Mother voiced understanding of the education shared, to call for assistance if the infant does not latch or if there is discomfort with . Reported to the Primary RN.
--- NOTE | 2025-01-27 09:48 | S_PTH ---
PATIENT: Karla Bills LOC: [facility] U#:[id number] AGE/SX: 34/F ROOM: 291 RE01/25/[address]: Hugh Eastman MD : 1990 BED: 00 DIS: 01/28/2025 SPEC #: [id number] RECD: 01/27/25 11:03 STATUS: ARNIE REEma #: [id number] SIMONE: 01/27/25 09:[address]: Hugh Eastman DEPT: [facility] Surgical RECD BY: Sarah Ferrell ENTERED: 01/27/25 11:03 SP TYPE: Surgical OTHR DR: Kelsey Lopez, [employer] SALES CONSULTANT Tissues: A - Placenta Procedures: Hematoxylin and Eosin Stain Gross and Microscopic Level 5
[2025-01-27] MEDS: oxyCODONE HCL (*CRX) 5 MG TAB IR 10 MG PO ×2 (10:27→16:23)
[2025-01-27 19:06] VITALS: BP 106/66; PULSE 88; RESP 16; TEMP 36.7; O2SAT 99
[2025-01-27] MEDS: LIDOCAINE 5% PATCH 1 PATCH TRANSDERM (21:02)
[2025-01-28] MEDS: ACETAMINOPHEN 500 MG TABLET 1000 MG PO ×3 (00:18→13:58)
[2025-01-28] MEDS: oxyCODONE HCL (*CRX) 5 MG TAB IR 10 MG PO (00:19)
[2025-01-28] MEDS: IBUPROFEN 600 MG TABLET PO ×2 (00:19→05:55)
[2025-01-28] MEDS: oxyCODONE HCL (*CRX) 5 MG TAB IR PO ×3 (04:16→11:32)
[2025-01-28] MEDS: SIMETHICONE 80 MG TAB.CHEW PO ×2 (07:35→11:32)
[2025-01-28] MEDS: CITALOPRAM HYDROBROMIDE 20 MG TABLET 40 MG PO (07:35)
[2025-01-28] MEDS: MULTIVIT/MIN/PREN/FOL AC/IRON TABLET 1 TAB PO (07:35)
[2025-01-28] MEDS: DOCUSATE SODIUM 100 MG CAPSULE PO (07:35)
[2025-01-28] MEDS: buPROPion HCL XL (24 HR) 150 MG TABCR 300 MG PO (07:35)
[2025-01-28 07:50] VITALS: BP 118/81; PULSE 75; RESP 16; TEMP 36.4; O2SAT 99
--- NOTE | 2025-01-28 09:20 | P.PNOB_ITS ---
OB - PN: Subj Subjective Date/time seen: 01/28/25 09:20 Narrative: Pain OK. Tolerating diet. Would like to go home. OB - PN: Obj Data Labs 01/26/25 05:09 OB - PN A/P Plan day: 3 Comments: A: POD#3, doing well. P: Home to f/u 4 weeks. Exam 2 Narrative: AVSS ABD soft, nontender, fundus firm. Incision c/d/i. EXT nontender
--- NOTE | 2025-01-28 09:40 | PC.NURSE ---
Consulted with mother concerning needs and she shared her ability to independently latch infant optimally without pain, she is also pumping and bottle feeding as well. Mother is feeding appropriately for growth of infant and understands stimulating infant to eat if needed. has had appropriate feedings in the last 24 hours meets the outcomes for weight, output, blood sugar and jaundice at this time. Reinforced understanding of milk production, transition of milk, signs of adequate intake, transition of stool, prevention/relief of engorgement, plugged ducts, mastitis, responsive watching for feeding cues, the different methods of stimulating to breastfeed 1-3 hours after the start of the last feeding, community resources, and when to call a provider using the resource of the feeding sheet along with the mom and baby guide. Mother voiced understanding of the information shared, is confident to continue effectively her infant at home, when to call for assistance, denies any additional assistance or education at this time. Reported to the Primary RN.
[2025-01-29 10:41] VITALS: BP 126/83; PULSE 88; RESP 18; TEMP 36.7; O2SAT 100
--- NOTE | 2025-01-29 14:05 | PC.NURSE ---
1405- Spoke with Dr. Eastman regarding EPDS score of 14. Aware of results. Will contact patient for follow up.
== END 2025-01-28 16:01 | disposition home or self-care (01) | DRG 788 ==
LOC: ANHLDR 21:42 → ANHOB2 01-26 01:49
PROVIDERS: Admitting Provider Obstetrics & Gynecology; PCP Nurse Practitioner; Visit Provider Obstetrics & Gynecology
PROC: 10D00Z1 Extraction of Products of Conception, Low, Open Approach (ICD-10-PCS; CPT 59514; principal; 2025-01-25 20:30)
DX: O67.9 Intrapartum hemorrhage, unspecified (principal); Z37.0 Single live birth; Z3A.37 37 weeks gestation of pregnancy; O99.344 Other mental disorders complicating childbirth; F41.9 Anxiety disorder, unspecified
CPT/HCPCS: 36415; 85025; 85610; 85730; 86593; 86850; 86900; 86901; 86923; 88307; A9270; J0456; J1200; J1885; J2274; J2300; J2371; J2405; J2590; J3480; J7050